=== PATIENT | male | born 1950 | race Caucasian/White ===

== ENCOUNTER 2018-01-15 10:56 | Day surgery (SDC) | payer OTHER ==
[2018-01-14 16:13] VITALS: BMI 26.9
--- NOTE | 2018-01-15 13:17 | HP ---
History & Physical Update - History History: No Change - Physical Physical: No Change - Assessment Assessment: No Change - Plan Plan: No Change
[2018-01-15] MEDS ORDERED: PROPOFOL 20 ML ONE (13:34)
[2018-01-15] MEDS ORDERED: MIDAZOLAM HCL 2 MG/2 ML SINGLE DOSE VIAL ONE (13:34)
[2018-01-15] MEDS ORDERED: LIDOCAINE HCL 1%, 10 MG/ML (20ML VIAL) ONE (13:34)
[2018-01-15] MEDS ORDERED: LIDOCAINE HCL/PF 2% SDV 5ML VIAL ONE ×2 (13:35→13:43)
[2018-01-15] MEDS ORDERED: DEXAMETHASONE SOD PHOSPHATE 4 MG/1 ML VIAL ONE (13:43)
[2018-01-15] MEDS ORDERED: SUCCINYLCHOLINE CHLORIDE 200 MG/10 ML VIAL ONE (13:43)
--- NOTE | 2018-01-15 14:40 | OP ---
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
--- NOTE | 2018-01-15 14:41 | SURG ---
Surgery Accounts Receivable Executive Note Accounts Receivable Executive: Alfa Gonzalez PA-C Date of Service: 01/15/18 Diagnosis: Left upper extremity AV fistula clotted aneurysm Procedure: Left upper extremity AV fistula aneurysm excision and declot I was present for the entirety of the operative procedure. For further detail, please refer to operative report.
[2018-01-15 16:53] VITALS: BP 124/70; PULSE 88; TEMP 98.7
--- NOTE | 2018-01-15 20:45 | OP ---
DATE OF OPERATION: 01/15/2018 SURGEON: Akbar Davidson MD GENERAL MANAGER IN TRAINING: , ABDULAZIZ PROCEDURE: Excision of thrombosed arteriovenous fistula, left upper arm. PREOPERATIVE DIAGNOSIS: Thrombosed arteriovenous fistula, left arm. POSTOPERATIVE DIAGNOSIS: Thrombosed arteriovenous fistula, left arm. ANESTHESIA: General. ANESTHESIOLOGIST: OPERATIVE FINDINGS: An old AV fistula in the left upper arm was thrombosed. There was aneurysmal dilatation of the thrombosed segment, which was causing the patient discomfort. OPERATIVE PROCEDURE: Following routine patient identification with site and side verification, general anesthesia was induced. The left arm was prepped with ChloraPrep. Timeout was performed. An elliptical incision was made around the enlarged fistula in the left upper arm. It was carried in the subcutaneous plane using cautery for hemostasis. The thrombosed aneurysm was then from the subcutaneous tissues with sharp dissection and cautery. It was ligated proximally and distally and it was excised with the attached ellipse of skin. A separate incision was made just above the antecubital crease, where there was another small area of aneurysmal dilatation. The vein was mobilized, ligated proximally and distally, and the intervening portion incised and clot removed. The wounds were then closed with interrupted sutures of 3-0 Vicryl on the subcutaneous tissues and skin remy. A sterile dressing was applied and the patient was taken to the recovery room in stable condition. AKBAR DAVIDSON M.D. ROSALBA/[id number]
--- NOTE | 2018-01-17 12:04 | PATH ---
Surgical Pathology Report Patient Name: BRUNILDA SHI [facility]. Rec. #: [id number] /Age/Gender: 1950 (Age: 68) / M Account: [id number] Location: [facility] SURGICAL Taken: 01/15/2018 Received: 01/16/2018 Reported: 01/17/2018 Physicians: Akbar Washington M.D. Specimen(s) Received CLOTTED AV FISTULA LEFT ARM Clinical History Clotted AV fistula left arm Final Diagnosis ARM, LEFT CLOTTED AV FISTULA, EXCISION: DILATED BLOOD VESSEL WITH INTRALUMINAL ORGANIZED BLOOD CLOT/THROMBUS CONSISTENT WITH AV FISTULA. SKIN WITHOUT SIGNIFICANT PATHOLOGIC FINDINGS. Electronically Signed Rosina Trotter M.D. Gross Description Received in formalin labeled as "clotted AV fistula left arm" is a raphael skin ellipse and underlying bulging lesion consistent with AV fistula. The skin ellipse measures 6 x 2.3 cm. The bulging lesion measures 5.5 x 2.5 x 2 cm and cut section shows a solid, brown-raphael, focally hemorrhagic heterogenous surface with an irregular area of white-raphael central discoloration measuring 1.5 x 1.2 cm in greatest dimension. Roll Up Helper sections are submitted in 2 cassettes. CRISTINA/01/16/2018 jace/01/16/2018
== END 2018-01-15 16:40 | disposition home or self-care (01) ==
LOC: JASU-SURG 10:56
PROVIDERS: ATTEND Surgery
PROC: 0JBF0ZZ Excision of Left Upper Arm Subcutaneous Tissue and Fascia, Open Approach (ICD-10-PCS; principal; 2018-01-15 13:00)
DX: T82.868A Thrombosis due to vascular prosthetic devices, implants and grafts, initial encounter (principal); E11.9 Type 2 diabetes mellitus without complications; I10 Essential (primary) hypertension; Z94.0 Kidney transplant status
CPT/HCPCS: 82962; 88305-TC; 94760

== ENCOUNTER 2018-01-20 10:09 | Inpatient (IN) | payer OTHER ==
[2018-01-20] MEDS ORDERED: ACETAMINOPHEN 1000 MG/100 ML VIAL (NON FORMULARY) IVPB ONE ×2 (10:57→21:53)
[2018-01-20] MEDS ORDERED: SODIUM CHLORIDE 0.9% 1000 ML INFUS.BAG IV ONE ×2 (10:57→13:28)
--- NOTE | 2018-01-20 11:03 | PDOC ---
History of Present Illness - General History Source: Patient Exam Limitations: No Limitations - History of Present Illness Initial Comments: 01/20/18 12:43 The patient is a 68 year old male with a significant PMH of diabetes, hypertension, hyperlipidemia, renal failure(on dialysis for 6 years) who presents to the emergency department with lower left quadrant pain. For several days. The patient reports that he is no longer on dialysis s/p kidney transplant. The patient denies any injury. He denies any fever, chills, nausea, vomit, diarrhea, constipation or urinary symptoms. The patient denies any chest pain, shortness of breath, headache and dizziness. The patient denies any other complaints. <Robert Ortiz - Last Filed: 01/20/18 15:51> <Mike Harman - Last Filed: 01/20/18 16:02> - General Chief Complaint: Pain, Acute Stated Complaint: FEVER (WOUND CARE SENT) Time Seen by Provider: 01/20/18 10:56 Past History <Robert Ortiz - Last Filed: 01/20/18 15:51> - Past Medical History COPD: No Diabetes: Yes HTN: Yes - Surgical History Orthopedic Surgery: Yes (FOOT SX) - Suicide/Smoking/Psychosocial Hx Smoking History: Never smoked Hx Alcohol Use: No Drug/Substance Use Hx: No Substance Use Type: None <Mike Harman - Last Filed: 01/20/18 16:02> - Past Medical History Allergies/Adverse Reactions: Allergies Allergy/AdvReac Type Severity Reaction Status Date / Time No Known Allergies Allergy Verified 01/20/18 10:29 Home Medications: Ambulatory Orders Acetaminophen W/ Codeine #3 [Tylenol # 3 -] 1 tab PO Q4H PRN #15 tablet MDD 6 Albuterol Sulfate [Proair Hfa] 8.5 gm IH DAILY 01/15/18 Insulin Detemir [Levemir Flextouch] 100 unit SQ DAILY 01/15/18 Insulin Lispro [Humalog] 100 unit SQ DAILY 01/15/18 Mycophenolate Mofetil [Cellcept -] 500 mg PO BID 01/15/18 Nifedipine [Procardia Xl] 30 mg PO DAILY 01/15/18 Pantoprazole Sodium [Protonix] 40 mg PO DAILY 01/15/18 Prednisolone [Millipred] 5 mg PO DAILY 01/15/18 Sitagliptin Phosphate [Januvia] 50 mg PO DAILY 01/15/18 Tacrolimus [Astagraf Xl] 0.5 mg PO BID 01/15/18 Tacrolimus [Prograf] 1 mg PO BID 01/15/18 Review of Systems - Review of Systems Able to Perform ROS?: Yes Comments:: 01/20/18 12:44 Constitutional: No recent illness; no fever ENT: No sore throat Cardiovascular: No palpitations; no chest pain Pulmonary: No cough; no trouble breathing Gastrointestinal: (+) lower abdominal pain. No nausea; no vomiting; no diarrhea Genitourinary: No urinary problems; no hematuria Skin: No rash Lymph system: No swollen glands Musculoskeletal: No joint swelling Neurological: No weakness; oo numbness; No Headache; no vertigo; no lightheadedness Psychiatric:No anxiety; no depression ROS: A complete review of 10 out of 10 review of systems is taken and is negative apart from what is previously mentioned below and in the HPI. <Robert Ortiz - Last Filed: 01/20/18 15:51> *Physical Exam - Vital Signs Last Vital Signs Temp Pulse Resp BP Pulse Ox 100.4 F H 116 H 19 131/79 99 01/20/18 10:29 01/20/18 10:29 01/20/18 10:29 01/20/18 10:29 01/20/18 10:29 - Physical Exam Comments: 01/20/18 12:44 Vitals: Triage vital signs reviewed General Appearance: No acute distress, well nourished, well developed Head: Atraumatic Neck: Supple; No nuchal rigidity Chest Wall: Nontender Cardiac: Regular rate and rhythm, no murmurs, no rubs, no gallops Lungs: Clear to auscultation bilateral, good air movement bilaterally Abdomen:(+)LLQ pain. Soft, nondistended, normal bowel sounds, Genitourinary: Extremities: Full range of motion to all extremities, no cyanosis, clubbing, or edema Skin: Warm and dry, no rashes or lesions, no rash, no petechiae Neuro: AOX3; Cranial Nerves 2-12 grossly intact, Strength intact to all extremities, Sensation intact to all extremities, gait normal Psych: Normal mood, normal affect <Robert Ortiz - Last Filed: 01/20/18 15:51> - Vital Signs Last Vital Signs Temp Pulse Resp BP Pulse Ox 100.4 F H 116 H 19 131/79 99 01/20/18 10:29 01/20/18 10:29 01/20/18 10:29 01/20/18 10:29 01/20/18 10:29 <Mike aHrman - Last Filed: 01/20/18 16:02> Heart Score/ECG Review - ECG Impressions Comment:: 01/20/18 16:00 EKG performed at 1342. Demonstrates sinus rhythm [address] elevations no T- wave inversions <Mike Harman - Last Filed: 01/20/18 16:02> ED Treatment Course - LABORATORY CBC & Chemistry Diagram: 01/20/18 12:10 01/20/18 12:10 - ADDITIONAL ORDERS Additional order review: Laboratory Results 01/20/18 12:10 VBG pH 7.36 POC VBG pCO2 48.8 POC VBG pO2 18.5 L* Mixed VBG HCO3 26.5 H 01/20/18 12:10 RBC 5.62 H MCV 82.9 MCHC 31.8 L RDW 14.3 MPV 9.6 Neutrophils % 90.8 H Lymphocytes % 2.4 L Monocytes % 6.0 Eosinophils % 0.2 Basophils % 0.6 <Robert Ortiz - Last Filed: 01/20/18 15:51> - LABORATORY CBC & Chemistry Diagram: 01/20/18 12:10 01/20/18 12:10 - RADIOLOGY Radiology Studies Ordered: Category Date Time Status ABDOMEN & PELVIS CT WITH CONTR [CT] Stat CT Scan 01/20/18 10:57 Ordered CHEST X-RAY PORTABLE* [RAD] Stat Radiology 01/20/18 10:56 Ordered <Mike Harman - Last Filed: 01/20/18 16:02> Medical Decision Making - Medical Decision Making 01/20/18 12:45 The patient is a 68 year old male with a significant PMH of diabetes, hypertension, hyperlipidemia, renal failure(on dialysis for 6 years) who presents to the emergency department with lower left quadrant pain For several days. the patient will get labs done, antibiotics, and a CT. Case discussed with Dr. Miranda at 2:55pm Case discussed with Dr. Rivas at 3:12pm <Robert Ortiz - Last Filed: 01/20/18 15:51> - Medical Decision Making 68 years old renal compromise secondary to renal transplant 6 years ago and insulin-dependent diabetes presents with soft tissue cellulitis to left anterior abdominal wall Given fever tachycardia sepsis protocol initiated. Patient currently broad- spectrum antibiotic. CAT scan abdomen and pelvis performed no contrast given secondary to renal transplant. CT results as dictated. Infectious disease consult. Surgery consulted, although no evidence for acute intervention at this time We will admit to medicine for further management. <Mike Harman - Last Filed: 01/20/18 16:02> *DC/Admit/Observation/Transfer - Attestations Scribe Attestion: 01/20/18 12:45 Documentation prepared by Robert Ortiz, acting as spanish medical interpreter for Mike Harman MD. <Robert Ortiz - Last Filed: 01/20/18 15:51> - Discharge Dispostion Decision to Admit order: Yes <Mike Harman - Last Filed: 01/20/18 16:02> Diagnosis at time of Disposition: Abdominal wall abscess - Referrals Referrals: Chirag Shah MD [Primary Care Provider] -
[2018-01-20] MEDS ORDERED: PIPERACILLIN/TAZOB 3.375 GM 3.375 GM in DEXTROSE 5%-WATER - 50 ML IVPB ONE (12:03)
[2018-01-20 12:26] LABS: BASO % 0.6 % (0-2.0); HEMATOCRIT 46.6 % (35.4-49); HEMOGLOBIN 14.8 GM/dL (11.7-16.9); MCH 26.4 pg (25.7-33.7); MCHC 31.8 g/dl (32.0-35.9); MEAN CELL VOLUME 82.9 fl (80-96); MEAN PLT VOLUME 9.6 fl (7.5-11.1); PLATELET COUNT 333 K/MM3 (134-434); RBC 5.62 M/mm3 (4.00-5.60); RDW 14.3 % (11.9-15.9)
[2018-01-20] MEDS ORDERED: PIPERACILLIN/TAZOB 3.375 GM 3.375 GM/50 ML BAG IVPB ONE ×2 (12:26→21:39)
[2018-01-20] MEDS ORDERED: ACETAMINOPHEN INJECTION 100 ML IVPB ONE ×2 (12:26→21:57)
[2018-01-20 12:29] LABS: VENOUS PC02 48.8 mmHg (38-52); VENOUS PH 7.36 (7.32-7.42); VENOUS PO2 18.5 mmHg (28-48)
[2018-01-20 12:46] LABS: PROTHROMBIN TIME (PATIENT) 11.3 SEC (9.7-13.0)
[2018-01-20 12:49] LABS: ACTIVATED PTT 23.4 SECONDS (25.2-36.5)
[2018-01-20 12:53] LABS: URINE APPEARANCE CLEAR; URINE BILIRUBIN NEGATIVE (<2.0 mg/dL); URINE COLOR DKYELLOW; URINE GLUCOSE (UA) 2+ (NEGATIVE); URINE KETONE NEGATIVE (NEGATIVE); URINE LEUK ESTERASE NEGATIVE (NEGATIVE); URINE NITRITE NEGATIVE (NEGATIVE)
[2018-01-20 12:57] LABS: ALBUMIN 3.6 g/dl (3.4-5.0); ALK PHOS 187 U/L (45-117); ANION GAP 9 (8-16); BILIRUBIN,TOTAL 1.1 mg/dL (0.2-1.0); BLOOD UREA NITROGEN 29 mg/dL (7-18); CALCIUM 10.3 mg/dL (8.5-10.1); CHLORIDE 99 mmol/L (98-107); CO2 27 mmol/L (21-32); CREATININE 1.8 mg/dL (0.7-1.3); GLUCOSE,RANDOM 91 mg/dL (74-106); POTASSIUM 4.5 mmol/L (3.5-5.1); SGOT/AST 11 U/L (15-37); SGPT/ALT 26 U/L (12-78); SODIUM 135 mmol/L (136-145)
[2018-01-20 13:04] LABS: URINE PROTEIN 2+ (NEGATIVE)
[2018-01-20 13:06] LABS: EPI CELLS RARE /HPF (FEW); URINE HYALINE CAST 4 /lpf; URINE MUCUS RARE
[2018-01-20] MEDS ORDERED: VANCOMYCIN 1,000 MG in DEXTROSE 5%-WATER - 250 ML IVPB ONE (15:11)
[2018-01-20] MEDS ORDERED: VANCOMYCIN 500 MG VIAL (RESTRICTED TO ID ONLY) ONE (15:25)
--- NOTE | 2018-01-20 16:14 | CONSULT ---
Consult Consult Specialty:: general surgery Referred by:: Jc Miranda MD Reason for Consultation:: LLQ/ groin skin abscess - History of Present Illness Chief Complaint: LLQ/ inguinal abscess History of Present Illness: 68 yo male PMH DM type 2, HTN, HLD, renal failure (on dialysis for 6 years) who presents to the emergency department with lower left quadrant pain. For several days. In an area where he shaves, may have been an ingrown hair. The patient reports that he is no longer on dialysis s/p kidney transplant. The patient denies any injury. He denies any fever, chills, nausea, vomit, diarrhea, constipation or urinary symptoms. The patient denies any chest pain, shortness of breath, headache and dizziness. The patient denies any other complaints. We were asked to assess. - History Source History Provided By: Patient, Medical Record Limitations to Obtaining History: No Limitations - Past Medical History Cardio/Vascular: Yes: HTN, Hyperlipdemia Endocrine: Yes: Diabetes Mellitus - Alcohol/Substance Use Hx Alcohol Use: No - Smoking History Smoking history: Never smoked - Social History Place of : Other ([facility]) History of Recent Travel: Yes Home Medications - Allergies Allergies/Adverse Reactions: Allergies Allergy/AdvReac Type Severity Reaction Status Date / Time No Known Allergies Allergy Verified 01/20/18 10:29 - Home Medications Home Medications: Ambulatory Orders Acetaminophen W/ Codeine #3 [Tylenol # 3 -] 1 tab PO Q4H PRN #15 tablet MDD 6 Albuterol Sulfate [Proair Hfa] 8.5 gm IH DAILY 01/15/18 Insulin Detemir [Levemir Flextouch] 100 unit SQ DAILY 01/15/18 Insulin Lispro [Humalog] 100 unit SQ DAILY 01/15/18 Mycophenolate Mofetil [Cellcept -] 500 mg PO BID 01/15/18 Nifedipine [Procardia Xl] 30 mg PO DAILY 01/15/18 Pantoprazole Sodium [Protonix] 40 mg PO DAILY 01/15/18 Prednisolone [Millipred] 5 mg PO DAILY 01/15/18 Sitagliptin Phosphate [Januvia] 50 mg PO DAILY 01/15/18 Tacrolimus [Astagraf Xl] 0.5 mg PO BID 01/15/18 Tacrolimus [Prograf] 1 mg PO BID 01/15/18 Review of Systems - Review of Systems Constitutional: denies: Chills, Fever Eyes: denies: Blurred Vision, Recent Change in Vision HENT: denies: Difficult Swallowing, Throat Pain Neck: denies: Pain on Movement, Tenderness Cardiovascular: denies: Chest Pain, Palpitations Respiratory: denies: Cough, SOB Gastrointestinal: denies: Abdominal Pain, Constipation, Diarrhea Genitourinary: denies: Discharge, Dysuria Breasts: reports: No Symptoms Reported. denies: Pain Musculoskeletal: denies: Muscle Pain, Muscle Weakness Integumentary: denies: Erythema, Lesions, Rash Neurological: denies: Seizure, Syncope Endocrine: denies: Unexplained Weight Gain, Unexplained Weight Loss Hematology/Lymphatic: denies: Easily Bruised, Excessive Bleeding Psychiatric: denies: Anxiety, Depression Physical Exam Vital Signs: Vital Signs Temperature 99.8 F H 01/20/18 15:23 Pulse Rate 103 H 01/20/18 15:23 Respiratory Rate 20 01/20/18 15:23 Blood Pressure 160/80 01/20/18 15:23 O2 Sat by Pulse Oximetry (%) 97 01/20/18 15:23 Vital Signs Period Temp Pulse Resp BP Sys/Rouse Pulse Ox Last 24 Hr 99.8 F-100.6 F 103-116 19-20 131-160/79-80 97-99 Constitutional: Yes: Well Nourished, No Distress, Calm Eyes: Yes: Conjunctiva Clear, EOM Intact HENT: Yes: Atraumatic, Normocephalic Neck: Yes: Supple, Trachea Midline. No: Tenderness Cardiovascular: Yes: Regular Rate and Rhythm, S1, S2 Respiratory: Yes: Regular, CTA Bilaterally Gastrointestinal: Yes: Normal Bowel Sounds, Soft ...Rectal Exam: Yes: Deferred Renal/: No: CVA Tenderness - Left, CVA Tenderness - Right Musculoskeletal: No: Muscle Pain, Muscle Weakness Extremities: No: Cool, Cyanosis Edema: Yes Integumentary: No: Erythema, Jaundice, Rash Wound/Incision: Yes: Reddened (2cm erythma not well defined/ circumscribed, + fluctuance and induration at punctum, 1cm cruciacte incison made) Neurological: Yes: Alert, Oriented Psychiatric: Yes: Alert, Oriented Labs: CBC, BMP 01/20/18 12:10 01/20/18 12:10 Imaging - Results Cat Scan: Report Reviewed, Image Reviewed (1cm^3 abscess) Problem List - Problems (1) Abdominal wall abscess Assessment/Plan: 68yo male MMP with a LLQ abdominal wall abscess Bedside I&D of abscess IV antibiotics ID evaluation adequate analgesia Discussed with patient risks, benefits and alternatives of Incision and Drainage of abdominal wall abscess, including but not limited to bleeding, infection, injury to adjacent structures, recurrence abscess, need for further procedures, ; alternatives include antibiotics, delayed or no surgery - risks of this include failure of nonoperative therapy, sepsis, recurrence, . Patient desires to proceed with operation - will take to OR for above. Informed consent signed for same. will follow This patient is critically ill. Time spent reviewing chart, examining patient, talking with providers and/or family and documentation is XX minutes Code(s): L02.211 - CUTANEOUS ABSCESS OF ABDOMINAL WALL (2) HTN (hypertension) Code(s): I10 - ESSENTIAL (PRIMARY) HYPERTENSION Qualifiers: Hypertension type: essential hypertension Qualified Code(s): I10 - Essential (primary) hypertension (3) Diabetes Code(s): E11.9 - TYPE 2 DIABETES MELLITUS WITHOUT COMPLICATIONS Qualifiers: Diabetes mellitus type: type 2 (4) Transplanted kidney Code(s): Z94.0 - KIDNEY TRANSPLANT STATUS (5) HLD (hyperlipidemia) Code(s): E78.5 - HYPERLIPIDEMIA, UNSPECIFIED Qualifiers: Hyperlipidemia type: unspecified Qualified Code(s): E78.5 - Hyperlipidemia , unspecified
--- NOTE | 2018-01-20 16:32 | PROC ---
Incision and Drainage Indication/Location: left lower quardant abscess Risks and Benefits Explained: Yes Consent on Chart: Yes Betadine cleansed: Yes Anesthesia: 1% Lidocaine Blade Size: 10 Drainage: purulnent material ~1ml, irrigated with hydrogen peroxide solution, and culture sent Irrigated with Normal Saline: Yes Iodinated Packin/2 in Sterile Dressing Applied: Yes - Remarks Remarks: informed consent after explaining RBA. Sterile prep and drape of LLQ. 1cm Cruciate incision of LLQ abscess.
--- NOTE | 2018-01-20 16:53 | HP ---
Admitting History and Physical - Primary Care Physician PCP: Sree Miranda - Admission History of Present Illness: 68 yo male PMH DM type 2, HTN, HLD, renal failure (on dialysis for 6 years) who presents to the emergency department with lower left quadrant pain. For several days. In an area where he shaves, may have been an ingrown hair. The patient reports that he is no longer on dialysis s/p kidney transplant. The patient denies any injury. He denies any fever, chills, nausea, vomit, diarrhea, constipation or urinary symptoms. The patient denies any chest pain, shortness of breath, headache and dizziness. The patient denies any other complaints. We were asked to assess. History Provided By: Patient, Medical Record - Past Medical History Cardiovascular: Yes: HTN, Hyperlipdemia Renal/: Yes: Renal Failure Endocrine: Yes: Diabetes Mellitus - Smoking History Smoking history: Never smoked - Alcohol/Substance Use Hx Alcohol Use: No - Social History History of Recent Travel: Yes Home Medications - Allergies Allergies/Adverse Reactions: Allergies Allergy/AdvReac Type Severity Reaction Status Date / Time No Known Allergies Allergy Verified 01/20/18 10:29 - Home Medications Home Medications: Ambulatory Orders Acetaminophen W/ Codeine #3 [Tylenol # 3 -] 1 tab PO Q4H PRN #15 tablet MDD 6 Albuterol Sulfate [Proair Hfa] 8.5 gm IH DAILY 01/15/18 Insulin Detemir [Levemir Flextouch] 100 unit SQ DAILY 01/15/18 Insulin Lispro [Humalog] 100 unit SQ DAILY 01/15/18 Mycophenolate Mofetil [Cellcept -] 500 mg PO BID 01/15/18 Nifedipine [Procardia Xl] 30 mg PO DAILY 01/15/18 Pantoprazole Sodium [Protonix] 40 mg PO DAILY 01/15/18 Prednisolone [Millipred] 5 mg PO DAILY 01/15/18 Sitagliptin Phosphate [Januvia] 50 mg PO DAILY 01/15/18 Tacrolimus [Astagraf Xl] 0.5 mg PO BID 01/15/18 Tacrolimus [Prograf] 1 mg PO BID 01/15/18 Physical Examination Vital Signs: Vital Signs Temperature 99.8 F H 01/20/18 15:23 Pulse Rate 103 H 01/20/18 15:23 Respiratory Rate 20 01/20/18 15:23 Blood Pressure 160/80 01/20/18 15:23 O2 Sat by Pulse Oximetry (%) 97 01/20/18 15:23 Constitutional: Yes: No Distress HENT: Yes: Atraumatic Neck: Yes: Supple Cardiovascular: Yes: Regular Rate and Rhythm Respiratory: Yes: CTA Bilaterally Gastrointestinal: Yes: Normal Bowel Sounds, Other (abdominal wall cellulitis) Extremities: Yes: WNL Edema: No Neurological: Yes: Alert, Oriented Labs: CBC, BMP 01/20/18 12:10 01/20/18 12:10 Imaging - Results X-ray: Report Reviewed Cat Scan: Report Reviewed Problem List - Problems (1) Abdominal wall abscess Assessment/Plan: iv abx id and surgery consult Code(s): L02.211 - CUTANEOUS ABSCESS OF ABDOMINAL WALL (2) CKD (chronic kidney disease) Code(s): N18.9 - CHRONIC KIDNEY DISEASE, UNSPECIFIED (3) Diabetes Assessment/Plan: on meds bgms Code(s): E11.9 - TYPE 2 DIABETES MELLITUS WITHOUT COMPLICATIONS Qualifiers: Diabetes mellitus type: type 2 (4) HLD (hyperlipidemia) Code(s): E78.5 - HYPERLIPIDEMIA, UNSPECIFIED Qualifiers: Hyperlipidemia type: unspecified Qualified Code(s): E78.5 - Hyperlipidemia , unspecified (5) HTN (hypertension) Assessment/Plan: on meds stable Code(s): I10 - ESSENTIAL (PRIMARY) HYPERTENSION Qualifiers: Hypertension type: essential hypertension Qualified Code(s): I10 - Essential (primary) hypertension (6) Transplanted kidney Code(s): Z94.0 - KIDNEY TRANSPLANT STATUS Assessment/Plan Laboratory Tests 01/20/18 01/20/18 01/20/18 12:10 12:10 12:10 WBC 19.0 H RBC 5.62 H Hgb 14.8 Hct 46.6 MCV 82.9 MCH 26.4 MCHC 31.8 L RDW 14.3 Plt Count 333 MPV 9.6 Absolute Neuts (auto) 17.3 Neutrophils % 89.0 H Lymphocytes % 3.0 L Monocytes % 6.0 Eosinophils % 2.0 Basophils % 0.6 Nucleated RBC % 0 PT with INR 11.30 INR 1.00 PTT (Actin FS) 23.4 L VBG pH 7.36 POC VBG pCO2 48.8 POC VBG pO2 18.5 L* Mixed VBG HCO3 26.5 H Sodium Potassium Chloride Carbon Dioxide Anion Gap BUN Creatinine Creat Clearance w eGFR Random Glucose Lactic Acid Calcium Total Bilirubin AST ALT Alkaline Phosphatase Troponin I Total Protein Albumin Urine Color Urine Appearance Urine pH Ur Specific [place] Urine Protein Urine Glucose (UA) Urine Ketones Urine Blood Urine Nitrite Urine Bilirubin Urine Urobilinogen Ur Leukocyte Esterase Urine WBC (Auto) Urine RBC (Auto) Ur Epithelial Cells Hyaline Casts Urine Mucus 01/20/18 01/20/18 01/20/18 12:10 12:10 12:10 WBC RBC Hgb Hct MCV MCH MCHC RDW Plt Count MPV Absolute Neuts (auto) Neutrophils % Lymphocytes % Monocytes % Eosinophils % Basophils % Nucleated RBC % PT with INR INR PTT (Actin FS) VBG pH POC VBG pCO2 POC VBG pO2 Mixed VBG HCO3 Sodium 135 L Potassium 4.5 Chloride 99 Carbon Dioxide 27 Anion Gap 9 BUN 29 H Creatinine 1.8 H Creat Clearance w eGFR 37.60 Random Glucose 91 Lactic Acid 2.4 H* Calcium 10.3 H Total Bilirubin 1.1 H AST 11 L ALT 26 Alkaline Phosphatase 187 H Troponin I < 0.02 Total Protein 8.0 Albumin 3.6 Urine Color Urine Appearance Urine pH Ur Specific [place] Urine Protein Urine Glucose (UA) Urine Ketones Urine Blood Urine Nitrite Urine Bilirubin Urine Urobilinogen Ur Leukocyte Esterase Urine WBC (Auto) Urine RBC (Auto) Ur Epithelial Cells Hyaline Casts Urine Mucus 01/20/18 12:45 WBC RBC Hgb Hct MCV MCH MCHC RDW Plt Count MPV Absolute Neuts (auto) Neutrophils % Lymphocytes % Monocytes % Eosinophils % Basophils % Nucleated RBC % PT with INR INR PTT (Actin FS) VBG pH POC VBG pCO2 POC VBG pO2 Mixed VBG HCO3 Sodium Potassium Chloride Carbon Dioxide Anion Gap BUN Creatinine Creat Clearance w eGFR Random Glucose Lactic Acid Calcium Total Bilirubin AST ALT Alkaline Phosphatase Troponin I Total Protein Albumin Urine Color Dkyellow Urine Appearance Clear Urine pH 5.0 Ur Specific [place] 1.031 Urine Protein 2+ H Urine Glucose (UA) 2+ H Urine Ketones Negative Urine Blood Negative Urine Nitrite Negative Urine Bilirubin Negative Urine Urobilinogen 2.0 Ur Leukocyte Esterase Negative Urine WBC (Auto) 2 Urine RBC (Auto) None Ur Epithelial Cells Rare Hyaline Casts 4 Urine Mucus Rare Active Medications Generic Name Dose Route Start Last Admin Trade Name Freq PRN Reason Stop Dose Admin Acetaminophen 650 mg 01/20/18 22:00 01/21/18 10:10 Tylenol - PO 650 mg Q6H PRN Administration FEVER Albuterol Sulfate 2 puff 01/21/18 10:00 Ventolin Hfa Inhaler - IH Q4H PRN SHORTNESS OF BREATH Clindamycin Phosphate 300 mg in 50 mls @ 100 mls/hr 01/21/18 19:15 01/22/18 11:33 Cleocin 300 Mg Premix Ivpb IVPB 100 mls/hr Q8H-IV ROMEO Administration Protocol Insulin Aspart 1 vial 01/20/18 22:00 01/22/18 11:37 Novolog Vial Sliding Scale - SQ 10 units ACHS ROMEO Administration Protocol Insulin Detemir 40 units 01/20/18 22:00 01/21/18 22:04 Levemir Vial SQ 40 units HS ROMEO Administration Mycophenolate Mofetil 1,000 mg 01/21/18 22:00 01/22/18 09:56 Cellcept - PO 1,000 mg BID ROMEO Administration Nifedipine 30 mg 01/21/18 10:00 01/22/18 09:56 Procardia Xl - PO 30 mg DAILY ROMEO Administration Oxycodone HCl 10 mg 01/20/18 22:00 Roxicodone - PO Q6H PRN PAIN LEVEL 4 - 6 Pantoprazole Sodium 40 mg 01/21/18 10:00 01/22/18 09:56 Protonix - PO 40 mg DAILY ROMEO Administration Prednisone 5 mg 01/21/18 10:00 01/22/18 09:56 Deltasone - PO 5 mg DAILY ROMEO Administration Sitagliptin Phosphate 50 mg 01/21/18 07:00 01/22/18 06:50 Januvia - PO Not Given ACBK ROMEO Tacrolimus 2 mg 01/21/18 22:00 01/22/18 09:56 Prograf PO 2 mg BID ROMEO Administration Tacrolimus 0.5 mg 01/21/18 22:00 01/22/18 10:00 Prograf PO 0.5 mg BID ROMEO Administration
[2018-01-20] MEDS ORDERED: LIDOCAINE HCL 1%, 10 MG/ML (20ML VIAL) ONE (17:07)
[2018-01-20 17:44] LABS: INR 1.01 (0.82-1.09); PROTHROMBIN TIME (PATIENT) 11.4 SEC (9.7-13.0)
[2018-01-20 17:47] LABS: ACTIVATED PTT 26.6 SECONDS (25.2-36.5)
[2018-01-20] MEDS: PIPERACILLIN/TAZOB 3.375 GM 3.375 GM in DEXTROSE 5%-WATER - 50 ML IVPB SCH (21:35)
[2018-01-20] MEDS ORDERED: oxyCODONE HCL 5 MG TABLET PO PRN (22:00)
[2018-01-20] MEDS ORDERED: ACETAMINOPHEN 325 MG TABLET (FP) PO PRN (22:00)
[2018-01-20] MEDS: INSULIN SLIDING SCALE (NOVOLOG) 1 VIAL SQ SCH (22:28)
[2018-01-20] MEDS ORDERED: INSULIN (LEVEMIR) 100 UNITS/ML UNITS SQ ONE (22:29)
[2018-01-20] MEDS: INSULIN (LEVEMIR) 100 UNITS/ML UNITS SQ SCH (22:33)
[2018-01-20] MEDS: MYCOPHENOLATE MOFETIL 500 MG TABLET PO SCH (22:33)
[2018-01-20] MEDS: TACROLIMUS 0.5 MG CAPSULE PO SCH (22:33)
[2018-01-21] MEDS: PIPERACILLIN/TAZOB 3.375 GM 3.375 GM in DEXTROSE 5%-WATER - 50 ML IVPB SCH ×3 (02:12→18:12)
[2018-01-21] MEDS ORDERED: PIPERACILLIN/TAZOB 4.5 GM 4.5 GM/100 ML BAG IVPB ONE (02:39)
[2018-01-21 06:23] LABS: BASO % 0.5 % (0-2.0); EOS % 0.1 % (0-4.5); HEMATOCRIT 39.9 % (35.4-49); HEMOGLOBIN 13.1 GM/dL (11.7-16.9); LYMPH % 4.1 % (8-40); MCHC 32.8 g/dl (32.0-35.9); MEAN CELL VOLUME 82.4 fl (80-96); MEAN PLT VOLUME 9.5 fl (7.5-11.1); MONO % 7.1 % (3.8-10.2); NEUT % 88.2 % (42.8-82.8); PLATELET COUNT 264 K/MM3 (134-434); RBC 4.84 M/mm3 (4.00-5.60); RDW 14.2 % (11.9-15.9); WHITE BLOOD COUNT 21.3 K/mm3 (4.0-10.0)
[2018-01-21] MEDS: INSULIN SLIDING SCALE (NOVOLOG) 1 VIAL SQ SCH ×4 (07:09→22:05)
[2018-01-21] MEDS ORDERED: ALBUTEROL SO4 18 GM HFA INHALER IH PRN (10:00)
[2018-01-21] MEDS ORDERED: ACETAMINOPHEN 325 MG TABLET (FP) ONE (10:08)
[2018-01-21] MEDS ORDERED: oxyCODONE HCL 5 MG TABLET ONE (10:10)
[2018-01-21] MEDS: TACROLIMUS 0.5 MG CAPSULE PO SCH ×2 (10:11→22:05)
[2018-01-21] MEDS: PANTOPRAZOLE 40 MG TABLET (FP) PO SCH (10:11)
[2018-01-21] MEDS: predniSONE 5 MG TABLET (UD) PO SCH (10:11)
[2018-01-21 10:12] LABS: ANISOCYTOSIS 1+; MACROCYTOSIS 1+; PLATELET ESTIMATE NORMAL
[2018-01-21] MEDS: MYCOPHENOLATE MOFETIL 500 MG TABLET PO SCH ×2 (10:12→22:04)
[2018-01-21] MEDS: NIFEdipine E.R. 30 MG TABLET (FP) PO SCH (10:12)
--- NOTE | 2018-01-21 13:18 | CONSULT ---
Consultation: REQUESTING PROVIDER: Dr. Miranda CONSULT REQUEST: We have been asked to medically evaluate this patient for creatinine 1.8. HISTORY OF PRESENT ILLNESS: This is a 68 year old male with a past medical history of DM, HTN, CKD was on HD for six years; is s/p left renal transplant 5yread ago at [facility], who presents septic with left lower quadrant abdominal/pelvic abscess, s/p I/D yesterday. We were called to evaluate for creatinine of 1.8. Baseline unknown. Follow every three months at [facility] with renal transplant center. Has not had any changes to his medications. Currently on cellcept, tacrolimus, prednisone daily. As per patient no complications from renal transplant. Primary: Dr. Martin [facility]: CKD, HTN, DM, macular degeneration PSX:left renal transplant 5 yrs ago; bilateral retina sx NKDA Home Medications Medication Instructions Recorded Acetaminophen W/ Codeine #3 1 tab PO Q4H PRN #15 tablet MDD 6 01/15/18 [Tylenol # 3 -] Albuterol Sulfate [Proair Hfa] 8.5 gm IH DAILY 01/15/18 Insulin Detemir [Levemir Flextouch] 100 unit SQ DAILY 01/15/18 Insulin Lispro [Humalog] 100 unit SQ DAILY 01/15/18 Mycophenolate Mofetil [Cellcept -] 500 mg PO BID 01/15/18 Nifedipine [Procardia Xl] 30 mg PO DAILY 01/15/18 Pantoprazole Sodium [Protonix] 40 mg PO DAILY 01/15/18 Prednisolone [Millipred] 5 mg PO DAILY 01/15/18 Sitagliptin Phosphate [Januvia] 50 mg PO DAILY 01/15/18 Tacrolimus [Astagraf Xl] 0.5 mg PO BID 01/15/18 Tacrolimus [Prograf] 1 mg PO BID 01/15/18 REVIEW OF SYSTEMS: CONSTITUTIONAL: Absent: fever, chills, diaphoresis, generalized weakness, malaise, loss of appetite, weight change HEENT: Absent: rhinorrhea, nasal congestion, throat pain, throat swelling, difficulty swallowing, mouth swelling, ear pain, eye pain, visual changes CARDIOVASCULAR: Absent: chest pain, syncope, palpitations, irregular heart rate, lightheadedness , peripheral edema RESPIRATORY: Absent: cough, shortness of breath, dyspnea with exertion, orthopnea, wheezing, stridor, hemoptysis GASTROINTESTINAL: Positive: abdominal tenderness Absent: abdominal pain, abdominal distension, nausea, vomiting, diarrhea, constipation, melena, hematochezia GENITOURINARY: Absent: dysuria, frequency, urgency, hesitancy, hematuria, flank pain, genital pain MUSCULOSKELETAL: Absent: myalgia, arthralgia, joint swelling, back pain, neck pain SKIN: Absent: rash, itching, pallor HEMATOLOGIC/IMMUNOLOGIC: Absent: easy bleeding, easy bruising, lymphadenopathy, frequent infections ENDOCRINE: Absent: unexplained weight gain, unexplained weight loss, heat intolerance, cold intolerance NEUROLOGIC: Absent: headache, focal weakness or paresthesias, dizziness, unsteady gait, seizure, mental status changes, bladder or bowel incontinence PSYCHIATRIC: Absent: anxiety, depression, suicidal or homicidal ideation, hallucinations. PHYSICAL EXAMINATION Vital Signs - 24 hr 01/20/18 01/20/18 01/20/18 13:45 15:23 21:50 Temperature 100.6 F H 99.8 F H 102.6 F H Pulse Rate Pulse Rate [ 103 H 109 H Apical] Respiratory 20 20 Rate Blood Pressure Blood Pressure 160/80 155/75 [Right Arm] O2 Sat by Pulse 97 92 L Oximetry (%) 01/21/18 01/21/18 01/21/18 01:38 06:19 07:04 Temperature 99.2 F 98.2 F 100.7 F H Pulse Rate Pulse Rate [ 103 H 102 H 104 H Apical] Respiratory 17 15 16 Rate Blood Pressure Blood Pressure 107/63 126/63 126/75 [Right Arm] O2 Sat by Pulse 97 97 97 Oximetry (%) 01/21/18 01/21/18 09:30 10:06 Temperature 101 F H 99 F Pulse Rate 101 H 106 H Pulse Rate [ Apical] Respiratory 18 20 Rate Blood Pressure 135/69 102/50 Blood Pressure [Right Arm] O2 Sat by Pulse 97 Oximetry (%) GENERAL: Awake, alert, and fully oriented, in no acute distress. HEAD: Normal with no signs of trauma. LUNGS: Breath sounds equal, clear to auscultation bilaterally. No wheezes, and no crackles. No accessory muscle use. HEART: Regular rate and rhythm, normal S1 and S2 without murmur, rub or gallop. ABDOMEN: Soft, nontender, right LQ wound dressing with serosanginous leaking fron bandage; no puss, swelling or erythema UPPER EXTREMITIES: 2+ pulses, warm, well-perfused. No cyanosis. No clubbing. Cap refill <2 seconds. No peripheral edema. left UE av fistula; LOWER EXTREMITIES: 2+ pulses, warm, well-perfused. No calf tenderness. No peripheral edema. NEUROLOGICAL: Cranial nerves II-XII intact. Normal speech. SKIN: Warm, dry, normal turgor, no rashes or lesions noted. Laboratory Results - last 24 hr 01/20/18 01/20/18 01/20/18 12:10 12:52 15:57 WBC RBC Hgb Hct MCV MCH MCHC RDW Plt Count MPV Absolute Neuts (auto) Neutrophils % 89.0 H Neutrophils % (Manual) 89.0 H Band Neutrophils % 0.0 Lymphocytes % 3.0 L Lymphocytes % (Manual) 3.0 L Monocytes % Monocytes % (Manual) 6 Eosinophils % 2.0 Eosinophils % (Manual) 2.0 Basophils % Basophils % (Manual) 0.0 Myelocytes % (Man) Promyelocytes % (Man) Blast Cells % (Manual) Nucleated RBC % Metamyelocytes Hypochromia Platelet Estimate Polychromasia Poikilocytosis Anisocytosis Microcytosis Macrocytosis PT with INR INR PTT (Actin FS) POC Glucometer Lactic Acid 2.0 Blood Type O NEGATIVE Antibody Screen Negative 01/20/18 01/20/18 01/21/18 15:57 22:18 06:00 WBC 21.3 H RBC 4.84 Hgb 13.1 D Hct 39.9 MCV 82.4 MCH 27.0 MCHC 32.8 RDW 14.2 Plt Count 264 D MPV 9.5 Absolute Neuts (auto) 18.8 Neutrophils % 88.2 H Neutrophils % (Manual) 87.4 H Band Neutrophils % 2.1 Lymphocytes % 4.1 L D Lymphocytes % (Manual) 8.4 D Monocytes % 7.1 Monocytes % (Manual) 2 L Eosinophils % 0.1 D Eosinophils % (Manual) 0.0 D Basophils % 0.5 Basophils % (Manual) 0.0 Myelocytes % (Man) 0 Promyelocytes % (Man) 0 Blast Cells % (Manual) 0 Nucleated RBC % 0 Metamyelocytes 0 Hypochromia 0 Platelet Estimate Normal Polychromasia 0 Poikilocytosis 0 Anisocytosis 1+ Microcytosis 1+ Macrocytosis 1+ PT with INR 11.40 INR 1.01 PTT (Actin FS) 26.6 POC Glucometer [phone] Lactic Acid Blood Type Antibody Screen 01/21/18 07:04 WBC RBC Hgb Hct MCV MCH MCHC RDW Plt Count MPV Absolute Neuts (auto) Neutrophils % Neutrophils % (Manual) Band Neutrophils % Lymphocytes % Lymphocytes % (Manual) Monocytes % Monocytes % (Manual) Eosinophils % Eosinophils % (Manual) Basophils % Basophils % (Manual) Myelocytes % (Man) Promyelocytes % (Man) Blast Cells % (Manual) Nucleated RBC % Metamyelocytes Hypochromia Platelet Estimate Polychromasia Poikilocytosis Anisocytosis Microcytosis Macrocytosis PT with INR INR PTT (Actin FS) POC Glucometer [phone] Lactic Acid Blood Type Antibody Screen Active Medications Generic Name Dose Route Start Last Admin Trade Name Freq PRN Reason Stop Dose Admin Acetaminophen 650 mg 01/20/18 22:00 01/21/18 10:10 Tylenol - PO 650 mg Q6H PRN Administration FEVER Albuterol Sulfate 2 puff 01/21/18 10:00 Ventolin Hfa Inhaler - IH Q4H PRN SHORTNESS OF BREATH Piperacillin Sod/Tazobactam 50 mls @ 100 mls/hr 01/20/18 19:30 01/21/18 10:11 Sod 3.375 gm/ Dextrose IVPB 100 mls/hr Q8H-IV ROMEO Administration Protocol Insulin Aspart 1 vial 01/20/18 22:00 01/21/18 07:09 Novolog Vial Sliding Scale - SQ Not Given ACHS ROMEO Protocol Insulin Detemir 40 units 01/20/18 22:00 01/20/18 22:33 Levemir Vial SQ 40 units HS ROMEO Administration Mycophenolate Mofetil 500 mg 01/20/18 22:00 01/21/18 10:12 Cellcept - PO 500 mg BID ROMEO Administration Nifedipine 30 mg 01/21/18 10:00 01/21/18 10:12 Procardia Xl - PO 30 mg DAILY ROMEO Administration Oxycodone HCl 10 mg 01/20/18 22:00 Roxicodone - PO Q6H PRN PAIN LEVEL 4 - 6 Pantoprazole Sodium 40 mg 01/21/18 10:00 01/21/18 10:11 Protonix - PO 40 mg DAILY ROMOE Administration Prednisone 5 mg 01/21/18 10:00 01/21/18 10:11 Deltasone - PO 5 mg DAILY ROMEO Administration Sitagliptin Phosphate 50 mg 01/21/18 07:00 Januvia - PO ACBK ROMEO Tacrolimus 0.5 mg 01/20/18 22:00 01/21/18 10:11 Prograf PO 0.5 mg BID ROMEO Administration ASSESSMENT/PLAN: This is a 68 year old English speaking male with HTN, DM, CKD s/p renal transplant 5yrs ago who presented septic from abdominal abscess. Creatinine on presentation was 1.8. #CKD s/p renal transplant; presenting creatinine 1.8 -get baseline cr -repeat BMP today monitor Cr, UA , urine creatinine, urine electrolytes -f/u non contrast MRI; there was question on initial CT of possible left rectus muscle resection vs hematoma vs infection -tacrolimus level -avoid nephrotoxic agents -renal dose medications #sepsis secondary to abdominal abscess: -POD#1 I& D -cont IV antibitoics; f/u culture -surgery /ID following Dispo: We will continue to follow the patient. Thank you for this consultative opportunity. Problem List - Problems (1) CKD (chronic kidney disease) Code(s): N18.9 - CHRONIC KIDNEY DISEASE, UNSPECIFIED (2) Abdominal wall abscess Code(s): L02.211 - CUTANEOUS ABSCESS OF ABDOMINAL WALL (3) Diabetes Code(s): E11.9 - TYPE 2 DIABETES MELLITUS WITHOUT COMPLICATIONS Qualifiers: Diabetes mellitus type: type 2 (4) HLD (hyperlipidemia) Code(s): E78.5 - HYPERLIPIDEMIA, UNSPECIFIED Qualifiers: Hyperlipidemia type: unspecified Qualified Code(s): E78.5 - Hyperlipidemia , unspecified (5) HTN (hypertension) Code(s): I10 - ESSENTIAL (PRIMARY) HYPERTENSION Qualifiers: Hypertension type: essential hypertension Qualified Code(s): I10 - Essential (primary) hypertension (6) Transplanted kidney Code(s): Z94.0 - KIDNEY TRANSPLANT STATUS Visit type - Emergency Visit Emergency Visit: No - New Patient This patient is new to me today: Yes Date on this admission: 01/21/18 - Critical Care Critical Care patient: No
[2018-01-21] MEDS: sitaGLIPtin PHOSPHATE 50 MG TABLET PO SCH (13:59)
[2018-01-21 14:29] LABS: URINE APPEARANCE CLEAR; URINE BILIRUBIN NEGATIVE (<2.0 mg/dL); URINE COLOR LTYELLOW; URINE GLUCOSE (UA) 2+ (NEGATIVE); URINE KETONE NEGATIVE (NEGATIVE); URINE LEUK ESTERASE NEGATIVE (NEGATIVE); URINE NITRITE NEGATIVE (NEGATIVE); URINE UROBILINOGEN NEGATIVE mg/dL (0.2-1.0)
[2018-01-21 14:37] LABS: URINE PROTEIN 1+ (NEGATIVE)
[2018-01-21 14:58] LABS: URINE CREATININE 74.8 mg/dL (20-370)
[2018-01-21 15:03] LABS: ANION GAP 11 (8-16); BLOOD UREA NITROGEN 25 mg/dL (7-18); CALCIUM 8.7 mg/dL (8.5-10.1); CHLORIDE 101 mmol/L (98-107); CO2 22 mmol/L (21-32); CREATININE 1.8 mg/dL (0.7-1.3); GLUCOSE,RANDOM 210 mg/dL (74-106); POTASSIUM 4.2 mmol/L (3.5-5.1); SODIUM 134 mmol/L (136-145)
--- NOTE | 2018-01-21 15:14 | EKG ---
Test Reason : Blood Pressure : / mmHG Vent. Rate : 107 BPM Atrial Rate : 107 BPM P-R Int : 142 ms QRS Dur : 088 ms QT Int : 322 ms P-R-T Axes : 067 004 030 degrees QTc Int : 429 ms SINUS TACHYCARDIA POSSIBLE LEFT ATRIAL ENLARGEMENT NONSPECIFIC T WAVE ABNORMALITY ABNORMAL ECG NO PREVIOUS ECGS AVAILABLE Confirmed by MD Brittany, Grayson ([id number]) on 01/21/2018 3:14:37 PM Referred By: Confirmed By:Grayson Soto MD
--- NOTE | 2018-01-21 15:16 | PN ---
Teaching Attending Note Name of Resident: Catherine De La Paz ATTENDING PHYSICIAN STATEMENT I saw and evaluated the patient. I reviewed the resident's note and discussed the case with the resident. I agree with the resident's findings and plan as documented. Nephrology Pt is a 68 year old male with pmhx of kidney transplant, DM, HTN, and HLD who presents with abdominal abscess. He had and I and D. He denies fevers or chills. He denies dysuria. He follows with Dr Shah. pmhx kidney transplant, ckd, dm, htn pshx kidney transplant nkda family hx denies social hx denies ros see hpi Current Medications Generic Name Dose Route Start Last Admin Trade Name Freq PRN Reason Stop Dose Admin Acetaminophen 650 mg 01/20/18 22:00 01/21/18 10:10 Tylenol - PO 650 mg Q6H PRN Administration FEVER Albuterol Sulfate 2 puff 01/21/18 10:00 Ventolin Hfa Inhaler - IH Q4H PRN SHORTNESS OF BREATH Piperacillin Sod/Tazobactam 50 mls @ 100 mls/hr 01/20/18 19:30 01/21/18 10:11 Sod 3.375 gm/ Dextrose IVPB 100 mls/hr Q8H-IV ROMEO Administration Protocol Insulin Aspart 1 vial 01/20/18 22:00 01/21/18 13:59 Novolog Vial Sliding Scale - SQ Not Given ACHS ROMEO Protocol Insulin Detemir 40 units 01/20/18 22:00 01/20/18 22:33 Levemir Vial SQ 40 units HS ROMEO Administration Mycophenolate Mofetil 1,000 mg 01/21/18 22:00 Cellcept - PO BID ROMEO Nifedipine 30 mg 01/21/18 10:00 01/21/18 10:12 Procardia Xl - PO 30 mg DAILY ROMEO Administration Oxycodone HCl 10 mg 01/20/18 22:00 Roxicodone - PO Q6H PRN PAIN LEVEL 4 - 6 Pantoprazole Sodium 40 mg 01/21/18 10:00 01/21/18 10:11 Protonix - PO 40 mg DAILY ROMEO Administration Prednisone 5 mg 01/21/18 10:00 01/21/18 10:11 Deltasone - PO 5 mg DAILY ROMEO Administration Sitagliptin Phosphate 50 mg 01/21/18 07:00 01/21/18 13:59 Januvia - PO 50 mg ACBK ROMEO Administration Tacrolimus 0.5 mg 01/20/18 22:00 01/21/18 10:11 Prograf PO 0.5 mg BID ROMEO Administration Laboratory Tests 01/20/18 01/20/18 01/21/18 12:10 12:10 06:00 WBC 19.0 H 21.3 H Hgb 14.8 13.1 D Plt Count 333 264 D Sodium Potassium Chloride Carbon Dioxide Anion Gap BUN Creatinine 1.8 H Urine Protein Urine Glucose (UA) Tacrolimus 01/21/18 01/21/18 01/21/18 13:55 13:55 14:15 WBC Hgb Plt Count Sodium 134 L Potassium 4.2 Chloride 101 Carbon Dioxide 22 Anion Gap 11 BUN 25 H Creatinine 1.8 H Urine Protein 1+ H Urine Glucose (UA) 2+ H Tacrolimus Pending cardio s1s2 reg pulm clear GI soft dressing in place - francis Impression 1. CKD 2. kidney transplant 3. HTN 4. DM 5. 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
[2018-01-21] MEDS ORDERED: PIPERACILLIN/TAZOB 3.375 GM 3.375 GM/50 ML BAG IVPB ONE (17:48)
[2018-01-21] MEDS ORDERED: INSULIN (NOVOLOG) ASPART 100 UNITS/ML 10ML VIAL ONE ×2 (17:54→21:15)
--- NOTE | 2018-01-21 18:16 | PN ---
Progress Note, Physician History of Present Illness: comfortable - Current Medication List Current Medications: Active Medications Acetaminophen (Tylenol -) 650 mg PO Q6H PRN PRN Reason: FEVER Last Admin: 01/21/18 10:10 Dose: 650 mg Albuterol Sulfate (Ventolin Hfa Inhaler -) 2 puff IH Q4H PRN PRN Reason: SHORTNESS OF BREATH Piperacillin Sod/Tazobactam (Sod 3.375 gm/ Dextrose) 50 mls @ 100 mls/hr IVPB Q8H-IV [facility]; Protocol Last Admin: 01/21/18 18:12 Dose: 100 mls/hr Insulin Aspart (Novolog Vial Sliding Scale -) 1 vial SQ ACHS [facility]; Protocol Last Admin: 01/21/18 18:12 Dose: 6 units Insulin Detemir (Levemir Vial) 40 units SQ HS [facility] Last Admin: 01/20/18 22:33 Dose: 40 units Mycophenolate Mofetil (Cellcept -) 1,000 mg PO BID [facility] Nifedipine (Procardia Xl -) 30 mg PO DAILY [facility] Last Admin: 01/21/18 10:12 Dose: 30 mg Oxycodone HCl (Roxicodone -) 10 mg PO Q6H PRN PRN Reason: PAIN LEVEL 4 - 6 Pantoprazole Sodium (Protonix -) 40 mg PO DAILY [facility] Last Admin: 01/21/18 10:11 Dose: 40 mg Prednisone (Deltasone -) 5 mg PO DAILY [facility] Last Admin: 01/21/18 10:11 Dose: 5 mg Sitagliptin Phosphate (Januvia -) 50 mg PO ACBK [facility] Last Admin: 01/21/18 13:59 Dose: 50 mg Tacrolimus (Prograf) 2 mg PO BID [facility] Tacrolimus (Prograf) 0.5 mg PO BID [facility] - Objective Vital Signs: Vital Signs Temperature 98.4 F 01/21/18 13:45 Pulse Rate 100 H 01/21/18 13:45 Respiratory Rate 20 01/21/18 13:45 Blood Pressure 110/60 01/21/18 13:45 O2 Sat by Pulse Oximetry (%) 97 01/21/18 09:30 Constitutional: Yes: No Distress HENT: Yes: Atraumatic Neck: Yes: Supple Cardiovascular: Yes: Regular Rate and Rhythm Respiratory: Yes: CTA Bilaterally Gastrointestinal: Yes: Other (abcess abdominal wall) Musculoskeletal: Yes: Other (abdominal wall infection...s/p i and d..dressing in place) Extremities: Yes: WNL Neurological: Yes: Alert, Oriented Labs: CBC, BMP 01/21/18 06:00 01/21/18 13:55 INR, PTT INR 1.01 (0.82-1.09) 01/20/18 15:57 Problem List - Problems (1) Abdominal wall abscess Assessment/Plan: iv abx id consult s/p debridement dressing in place Code(s): L02.211 - CUTANEOUS ABSCESS OF ABDOMINAL WALL (2) CKD (chronic kidney disease) Code(s): N18.9 - CHRONIC KIDNEY DISEASE, UNSPECIFIED (3) Diabetes Assessment/Plan: on meds bgms Code(s): E11.9 - TYPE 2 DIABETES MELLITUS WITHOUT COMPLICATIONS Qualifiers: Diabetes mellitus type: type 2 (4) HLD (hyperlipidemia) Code(s): E78.5 - HYPERLIPIDEMIA, UNSPECIFIED Qualifiers: Hyperlipidemia type: unspecified Qualified Code(s): E78.5 - Hyperlipidemia , unspecified (5) HTN (hypertension) Assessment/Plan: on meds stable Code(s): I10 - ESSENTIAL (PRIMARY) HYPERTENSION Qualifiers: Hypertension type: essential hypertension Qualified Code(s): I10 - Essential (primary) hypertension (6) Transplanted kidney Code(s): Z94.0 - KIDNEY TRANSPLANT STATUS
--- NOTE | 2018-01-21 19:06 | CON.ID ---
Consult Consult Specialty:: infectious diseases Reason for Consultation:: abd abscess - History of Present Illness Chief Complaint: abd pain History of Present Illness: 68 yo male PMH DM type 2, HTN, HLD, renal failure (on dialysis for 6 years) who presents to the emergency department with lower left quadrant pain. For several days. In an area where he shaves, may have been an ingrown hair. The patient reports that he is no longer on dialysis s/p kidney transplant. The patient denies any injury. He denies any fever, chills, nausea, vomit, diarrhea, constipation or urinary symptoms. The patient denies any chest pain, shortness of breath, headache and dizziness. the above was the admission history ,on workup patient was found to ahve abscess and the surgeon evaluated the patient and took the patient to the operating room where he underwent i and d of the abscess patient curently feeling well and ahs a dressing over the operated site - History Source History Provided By: Patient, Medical Record Limitations to Obtaining History: Language Barrier - Past Medical History Cardio/Vascular: Yes: HTN, Hyperlipdemia Renal/: Yes: Renal Failure Endocrine: Yes: Diabetes Mellitus - Alcohol/Substance Use Hx Alcohol Use: No - Smoking History Smoking history: Never smoked - Social History History of Recent Travel: Yes Home Medications - Allergies Allergies/Adverse Reactions: Allergies Allergy/AdvReac Type Severity Reaction Status Date / Time No Known Allergies Allergy Verified 01/20/18 10:29 - Home Medications Home Medications: Ambulatory Orders Acetaminophen W/ Codeine #3 [Tylenol # 3 -] 1 tab PO Q4H PRN #15 tablet MDD 6 Albuterol Sulfate [Proair Hfa] 8.5 gm IH DAILY 01/15/18 Insulin Detemir [Levemir Flextouch] 100 unit SQ DAILY 01/15/18 Insulin Lispro [Humalog] 100 unit SQ DAILY 01/15/18 Mycophenolate Mofetil [Cellcept -] 500 mg PO BID 01/15/18 Nifedipine [Procardia Xl] 30 mg PO DAILY 01/15/18 Pantoprazole Sodium [Protonix] 40 mg PO DAILY 01/15/18 Prednisolone [Millipred] 5 mg PO DAILY 01/15/18 Sitagliptin Phosphate [Januvia] 50 mg PO DAILY 01/15/18 Tacrolimus [Astagraf Xl] 0.5 mg PO BID 01/15/18 Tacrolimus [Prograf] 1 mg PO BID 01/15/18 Review of Systems - Review of Systems Constitutional: reports: No Symptoms Eyes: reports: No Symptoms HENT: reports: No Symptoms Neck: reports: No Symptoms Cardiovascular: reports: No Symptoms Respiratory: reports: No Symptoms Gastrointestinal: reports: No Symptoms Musculoskeletal: reports: Muscle Pain Integumentary: reports: Erythema, Wound Neurological: reports: No Symptoms Endocrine: reports: No Symptoms Hematology/Lymphatic: reports: No Symptoms Psychiatric: reports: No Symptoms Physical Exam Vital Signs: Vital Signs Temperature 98.4 F 01/21/18 13:45 Pulse Rate 100 H 01/21/18 13:45 Respiratory Rate 20 01/21/18 13:45 Blood Pressure 110/60 01/21/18 13:45 O2 Sat by Pulse Oximetry (%) 97 01/21/18 09:30 Constitutional: Yes: No Distress, Calm, Thin Cardiovascular: Yes: Regular Rate and Rhythm Respiratory: Yes: Regular, CTA Bilaterally Gastrointestinal: Yes: Normal Bowel Sounds, Soft Musculoskeletal: Yes: WNL Extremities: Yes: WNL Integumentary: Yes: Erythema, Other Wound/Incision: Yes: Dressing Dry and Intact Neurological: Yes: Alert, Oriented Psychiatric: Yes: Alert, Oriented Labs: CBC, BMP 01/21/18 06:00 01/21/18 13:55 Imaging - Results Chest X-ray: Report Reviewed, Image Reviewed Cat Scan: Report Reviewed, Image Reviewed Assessment/Plan Problem List - Problems (1) Abdominal wall abscess Code(s): L02.211 - CUTANEOUS ABSCESS OF ABDOMINAL WALL (2) CKD (chronic kidney disease) Code(s): N18.9 - CHRONIC KIDNEY DISEASE, UNSPECIFIED (3) Diabetes Code(s): E11.9 - TYPE 2 DIABETES MELLITUS WITHOUT COMPLICATIONS Qualifiers: Diabetes mellitus type: type 2 (4) HLD (hyperlipidemia) Code(s): E78.5 - HYPERLIPIDEMIA, UNSPECIFIED Qualifiers: Hyperlipidemia type: unspecified Qualified Code(s): E78.5 - Hyperlipidemia , unspecified (5) HTN (hypertension) Code(s): I10 - ESSENTIAL (PRIMARY) HYPERTENSION Qualifiers: Hypertension type: essential hypertension Qualified Code(s): I10 - Essential (primary) hypertension (6) Transplanted kidney Code(s): Z94.0 - KIDNEY TRANSPLANT STATUS plan will start patient on abx await for cx reports wound care rest as per surgical team
[2018-01-21] MEDS: CLINDAMYCIN 300 MG PREMIX IVPB 300 MG/50 ML BAG IVPB SCH (21:04)
[2018-01-21] MEDS ORDERED: INSULIN (LEVEMIR) 100 UNITS/ML UNITS SQ ONE (21:15)
[2018-01-21] MEDS: INSULIN (LEVEMIR) 100 UNITS/ML UNITS SQ SCH (22:04)
[2018-01-21] MEDS: TACROLIMUS ANHYDROUS 1 MG CAPSULE PO SCH (22:05)
[2018-01-22] MEDS: CLINDAMYCIN 300 MG PREMIX IVPB 300 MG/50 ML BAG IVPB SCH ×3 (02:23→20:19)
[2018-01-22] MEDS ORDERED: DEXTROSE 5%-WATER - 50 ML IVPB ONE ×2 (02:45→09:31)
[2018-01-22] MEDS ORDERED: PIPERACILLIN/TAZOBACTAM 2.25 GM VIAL IVPB ONE ×2 (02:45→09:31)
[2018-01-22] MEDS: PIPERACILLIN/TAZOB 2.25 GM 2.25 GM in DEXTROSE 5%-WATER - 50 ML IVPB SCH ×2 (02:55→09:57)
[2018-01-22] MEDS: sitaGLIPtin PHOSPHATE 50 MG TABLET PO SCH (06:50)
[2018-01-22] MEDS: INSULIN SLIDING SCALE (NOVOLOG) 1 VIAL SQ SCH ×4 (06:51→22:46)
[2018-01-22 07:29] LABS: ANION GAP 10 (8-16); BLOOD UREA NITROGEN 23 mg/dL (7-18); CALCIUM 9.2 mg/dL (8.5-10.1); CHLORIDE 106 mmol/L (98-107); CO2 24 mmol/L (21-32); CREATININE 1.6 mg/dL (0.7-1.3); POTASSIUM 3.6 mmol/L (3.5-5.1); SODIUM 140 mmol/L (136-145)
[2018-01-22 08:16] LABS: GLUCOSE,RANDOM 31 mg/dL (74-106)
[2018-01-22 09:10] LABS: BASO % 0.6 % (0-2.0); EOS % 0.4 % (0-4.5); HEMOGLOBIN 13.6 GM/dL (11.7-16.9); MCH 26.8 pg (25.7-33.7); MCHC 32.4 g/dl (32.0-35.9); MEAN CELL VOLUME 82.8 fl (80-96); MEAN PLT VOLUME 10.3 fl (7.5-11.1); PLATELET COUNT 275 K/MM3 (134-434); RBC 5.07 M/mm3 (4.00-5.60); RDW 14.2 % (11.9-15.9); WHITE BLOOD COUNT 22.6 K/mm3 (4.0-10.0)
[2018-01-22] MEDS ORDERED: PT OWN MED DRAWER 7, Y5N ONE ×4 (09:30→22:31)
--- NOTE | 2018-01-22 09:36 | PN ---
Progress Note, Physician Chief Complaint: Left abdominal wall abscess History of Present Illness: 68 yo male PMH DM type 2, HTN, HLD, s/p renal transplant at [facility] (on dialysis for 6 years) who presents to the emergency department with lower left quadrant pain, redness and swelling for several days. LUE vascular access 01/[address] Washington. He reports feeling weak. Low grade fevers persist. - Current Medication List Current Medications: Active Medications Acetaminophen (Tylenol -) 650 mg PO Q6H PRN PRN Reason: FEVER Last Admin: 01/21/18 10:10 Dose: 650 mg Albuterol Sulfate (Ventolin Hfa Inhaler -) 2 puff IH Q4H PRN PRN Reason: SHORTNESS OF BREATH Clindamycin Phosphate (Cleocin 300 Mg Premix Ivpb) 300 mg in 50 mls @ 100 mls/ hr IVPB Q8H-IV [facility]; Protocol Last Admin: 01/22/18 02:23 Dose: 100 mls/hr Piperacillin Sod/Tazobactam (Sod 2.25 gm/ Dextrose) 50 mls @ 100 mls/hr IVPB Q8H-IV [facility]; Protocol Last Admin: 01/22/18 02:55 Dose: 100 mls/hr Insulin Aspart (Novolog Vial Sliding Scale -) 1 vial SQ ACHS [facility]; Protocol Last Admin: 01/22/18 06:51 Dose: Not Given Insulin Detemir (Levemir Vial) 40 units SQ HS [facility] Last Admin: 01/21/18 22:04 Dose: 40 units Mycophenolate Mofetil (Cellcept -) 1,000 mg PO BID [facility] Last Admin: 01/21/18 22:04 Dose: 1,000 mg Nifedipine (Procardia Xl -) 30 mg PO DAILY [facility] Last Admin: 01/21/18 10:12 Dose: 30 mg Oxycodone HCl (Roxicodone -) 10 mg PO Q6H PRN PRN Reason: PAIN LEVEL 4 - 6 Pantoprazole Sodium (Protonix -) 40 mg PO DAILY [facility] Last Admin: 01/21/18 10:11 Dose: 40 mg Prednisone (Deltasone -) 5 mg PO DAILY [facility] Last Admin: 01/21/18 10:11 Dose: 5 mg Sitagliptin Phosphate (Januvia -) 50 mg PO ACBK [facility] Last Admin: 01/22/18 06:50 Dose: Not Given Tacrolimus (Prograf) 2 mg PO BID [facility] Last Admin: 01/21/18 22:05 Dose: 2 mg Tacrolimus (Prograf) 0.5 mg PO BID [facility] Last Admin: 01/21/18 22:05 Dose: 0.5 mg - Objective Vital Signs: Vital Signs Temperature 98.2 F 01/22/18 06:00 Pulse Rate 86 01/22/18 06:00 Respiratory Rate 18 01/22/18 06:00 Blood Pressure 151/71 01/22/18 06:00 O2 Sat by Pulse Oximetry (%) 99 01/22/18 05:13 Vital Signs Period Temp Pulse Resp BP Sys/Rouse Pulse Ox Last 24 Hr 98.2 F-99 F 86-106 18-20 102-151/50-72 99-99 Intake & Output 01/21/18 01/22/18 01/22/18 23:59 07:59 15:59 Weight 169 lb 6.4 oz Other: Voiding Method Urinal Urinal Height 5 ft 7 in Body Mass Index (BMI) 26.5 Weight Measurement Method Standing Scale Constitutional: Yes: Well Nourished, No Distress, Calm Eyes: Yes: Conjunctiva Clear, EOM Intact HENT: Yes: Atraumatic, Normocephalic, Pharyngeal Erythema Neck: Yes: Supple, Trachea Midline Cardiovascular: Yes: Regular Rate and Rhythm, S1, S2 Respiratory: Yes: Regular, CTA Bilaterally Gastrointestinal: Yes: Normal Bowel Sounds, Soft, Tenderness ...Rectal Exam: Yes: Deferred Genitourinary: No: CVA Tenderness - Left, CVA Tenderness - Right Musculoskeletal: No: Muscle Pain, Muscle Weakness Edema: No Peripheral Pulses WNL: Yes Integumentary: No: Jaundice, Rash Wound/Incision: Yes: Draining, Reddened, Unapproximated (1cm cruciate incison, 1 /2" iodoform packing, 4X4 gauze, tape), Other (induration lateral on flank non- fluctuant) Neurological: Yes: Alert, Oriented Psychiatric: Yes: Alert, Oriented Labs: CBC, BMP 01/22/18 08:50 01/22/18 05:50 INR, PTT INR 1.01 (0.82-1.09) 01/20/18 15:57 Problem List - Problems (1) Abdominal wall abscess Assessment/Plan: 68yo male MMP with a LLQ abdominal wall abscess PPD#1 s/p I&D of abdominal wall abscess, site is improving, decreased redness and swelling, decreased induration. Presumptive MRSA. Recent LUE proximal vascular access by Dr. Washington this sight may also need to be evaluated. Made a call to transplant service at [facility] to see if there were any additional recommendations. IV antibiotics ID evaluation adequate analgesia Daily dressing change LLQ Wound measurement: 1cm cruciate incision no drainage Dressing instructions: 1/2" iodoform packing, 4X4 gauze, tape will follow Code(s): L02.211 - CUTANEOUS ABSCESS OF ABDOMINAL WALL (2) HTN (hypertension) Code(s): I10 - ESSENTIAL (PRIMARY) HYPERTENSION Qualifiers: Hypertension type: essential hypertension Qualified Code(s): I10 - Essential (primary) hypertension (3) Diabetes Code(s): E11.9 - TYPE 2 DIABETES MELLITUS WITHOUT COMPLICATIONS Qualifiers: Diabetes mellitus type: type 2 (4) Transplanted kidney Code(s): Z94.0 - KIDNEY TRANSPLANT STATUS (5) HLD (hyperlipidemia) Code(s): E78.5 - HYPERLIPIDEMIA, UNSPECIFIED Qualifiers: Hyperlipidemia type: unspecified Qualified Code(s): E78.5 - Hyperlipidemia , unspecified
[2018-01-22] MEDS: MYCOPHENOLATE MOFETIL 500 MG TABLET PO SCH ×2 (09:56→22:47)
[2018-01-22] MEDS: PANTOPRAZOLE 40 MG TABLET (FP) PO SCH (09:56)
[2018-01-22] MEDS: TACROLIMUS ANHYDROUS 1 MG CAPSULE PO SCH ×2 (09:56→22:47)
[2018-01-22] MEDS: NIFEdipine E.R. 30 MG TABLET (FP) PO SCH (09:56)
[2018-01-22] MEDS: predniSONE 5 MG TABLET (UD) PO SCH (09:56)
[2018-01-22] MEDS: TACROLIMUS 0.5 MG CAPSULE PO SCH ×2 (10:00→22:47)
[2018-01-22] MEDS ORDERED: INSULIN (NOVOLOG) ASPART 100 UNITS/ML 10ML VIAL ONE (11:36)
--- NOTE | 2018-01-22 12:16 | PN ---
Progress Note, Physician History of Present Illness: comfortable - Current Medication List Current Medications: Active Medications Acetaminophen (Tylenol -) 650 mg PO Q6H PRN PRN Reason: FEVER Last Admin: 01/21/18 10:10 Dose: 650 mg Albuterol Sulfate (Ventolin Hfa Inhaler -) 2 puff IH Q4H PRN PRN Reason: SHORTNESS OF BREATH Clindamycin Phosphate (Cleocin 300 Mg Premix Ivpb) 300 mg in 50 mls @ 100 mls/ hr IVPB Q8H-IV [facility]; Protocol Last Admin: 01/22/18 11:33 Dose: 100 mls/hr Piperacillin Sod/Tazobactam (Sod 2.25 gm/ Dextrose) 50 mls @ 100 mls/hr IVPB Q8H-IV [facility]; Protocol Last Admin: 01/22/18 09:57 Dose: 100 mls/hr Insulin Aspart (Novolog Vial Sliding Scale -) 1 vial SQ ACHS [facility]; Protocol Last Admin: 01/22/18 11:37 Dose: 10 units Insulin Detemir (Levemir Vial) 40 units SQ HS [facility] Last Admin: 01/21/18 22:04 Dose: 40 units Mycophenolate Mofetil (Cellcept -) 1,000 mg PO BID [facility] Last Admin: 01/22/18 09:56 Dose: 1,000 mg Nifedipine (Procardia Xl -) 30 mg PO DAILY [facility] Last Admin: 01/22/18 09:56 Dose: 30 mg Oxycodone HCl (Roxicodone -) 10 mg PO Q6H PRN PRN Reason: PAIN LEVEL 4 - 6 Pantoprazole Sodium (Protonix -) 40 mg PO DAILY [facility] Last Admin: 01/22/18 09:56 Dose: 40 mg Prednisone (Deltasone -) 5 mg PO DAILY [facility] Last Admin: 01/22/18 09:56 Dose: 5 mg Sitagliptin Phosphate (Januvia -) 50 mg PO ACBK [facility] Last Admin: 01/22/18 06:50 Dose: Not Given Tacrolimus (Prograf) 2 mg PO BID [facility] Last Admin: 01/22/18 09:56 Dose: 2 mg Tacrolimus (Prograf) 0.5 mg PO BID [facility] Last Admin: 01/22/18 10:00 Dose: 0.5 mg - Objective Vital Signs: Vital Signs Temperature 98.2 F 01/22/18 06:00 Pulse Rate 86 06/20/18 06:00 Respiratory Rate 18 01/22/18 06:00 Blood Pressure 151/71 01/22/18 06:00 O2 Sat by Pulse Oximetry (%) 99 01/22/18 05:13 Constitutional: Yes: No Distress HENT: Yes: Atraumatic Neck: Yes: Supple Cardiovascular: Yes: Regular Rate and Rhythm Respiratory: Yes: CTA Bilaterally Gastrointestinal: Yes: Normal Bowel Sounds Musculoskeletal: Yes: Other (abd wall abcess, dressing in place) Edema: No Peripheral Pulses WNL: Yes Neurological: Yes: Alert, Oriented Labs: CBC, BMP 01/22/18 08:50 01/22/18 05:50 INR, PTT INR 1.01 (0.82-1.09) 01/20/18 15:57 Problem List - Problems (1) Abdominal wall abscess Assessment/Plan: iv abx id consult s/p debridement dressing in place Code(s): L02.211 - CUTANEOUS ABSCESS OF ABDOMINAL WALL (2) CKD (chronic kidney disease) Code(s): N18.9 - CHRONIC KIDNEY DISEASE, UNSPECIFIED (3) Diabetes Assessment/Plan: on meds bgms Code(s): E11.9 - TYPE 2 DIABETES MELLITUS WITHOUT COMPLICATIONS Qualifiers: Diabetes mellitus type: type 2 (4) HLD (hyperlipidemia) Code(s): E78.5 - HYPERLIPIDEMIA, UNSPECIFIED Qualifiers: Hyperlipidemia type: unspecified Qualified Code(s): E78.5 - Hyperlipidemia , unspecified (5) HTN (hypertension) Code(s): I10 - ESSENTIAL (PRIMARY) HYPERTENSION Qualifiers: Hypertension type: essential hypertension Qualified Code(s): I10 - Essential (primary) hypertension (6) Transplanted kidney Code(s): Z94.0 - KIDNEY TRANSPLANT STATUS
--- NOTE | 2018-01-22 12:48 | PN ---
Progress Note, Physician History of Present Illness: Pt seen and examined at bedside. He is awake and alert. He denies fevers or chills. - Current Medication List Current Medications: Active Medications Acetaminophen (Tylenol -) 650 mg PO Q6H PRN PRN Reason: FEVER Last Admin: 01/21/18 10:10 Dose: 650 mg Albuterol Sulfate (Ventolin Hfa Inhaler -) 2 puff IH Q4H PRN PRN Reason: SHORTNESS OF BREATH Clindamycin Phosphate (Cleocin 300 Mg Premix Ivpb) 300 mg in 50 mls @ 100 mls/ hr IVPB Q8H-IV [facility]; Protocol Last Admin: 01/22/18 11:33 Dose: 100 mls/hr Piperacillin Sod/Tazobactam (Sod 2.25 gm/ Dextrose) 50 mls @ 100 mls/hr IVPB Q8H-IV [facility]; Protocol Last Admin: 01/22/18 09:57 Dose: 100 mls/hr Insulin Aspart (Novolog Vial Sliding Scale -) 1 vial SQ ACHS [facility]; Protocol Last Admin: 01/22/18 11:37 Dose: 10 units Insulin Detemir (Levemir Vial) 40 units SQ HS [facility] Last Admin: 01/21/18 22:04 Dose: 40 units Mycophenolate Mofetil (Cellcept -) 1,000 mg PO BID [facility] Last Admin: 01/22/18 09:56 Dose: 1,000 mg Nifedipine (Procardia Xl -) 30 mg PO DAILY [facility] Last Admin: 01/22/18 09:56 Dose: 30 mg Oxycodone HCl (Roxicodone -) 10 mg PO Q6H PRN PRN Reason: PAIN LEVEL 4 - 6 Pantoprazole Sodium (Protonix -) 40 mg PO DAILY [facility] Last Admin: 01/22/18 09:56 Dose: 40 mg Prednisone (Deltasone -) 5 mg PO DAILY [facility] Last Admin: 01/22/18 09:56 Dose: 5 mg Sitagliptin Phosphate (Januvia -) 50 mg PO ACBK [facility] Last Admin: 01/22/18 06:50 Dose: Not Given Tacrolimus (Prograf) 2 mg PO BID [facility] Last Admin: 01/22/18 09:56 Dose: 2 mg Tacrolimus (Prograf) 0.5 mg PO BID [facility] Last Admin: 01/22/18 10:00 Dose: 0.5 mg - Objective Vital Signs: Vital Signs Temperature 98.2 F 01/22/18 06:00 Pulse Rate 86 01/22/18 06:00 Respiratory Rate 18 01/22/18 06:00 Blood Pressure 151/71 01/22/18 06:00 O2 Sat by Pulse Oximetry (%) 99 01/22/18 05:13 Constitutional: Yes: Calm Eyes: Yes: Conjunctiva Clear HENT: Yes: Atraumatic Cardiovascular: Yes: S1, S2 Respiratory: Yes: CTA Bilaterally Gastrointestinal: Yes: Soft, Other (dressing in place) Musculoskeletal: Yes: WNL Edema: No Neurological: Yes: Oriented Psychiatric: Yes: Oriented Labs: CBC, BMP 01/22/18 08:50 01/22/18 05:50 INR, PTT INR 1.01 (0.82-1.09) 01/20/18 15:57 Problem List - Problems (1) Abdominal wall abscess Code(s): L02.211 - CUTANEOUS ABSCESS OF ABDOMINAL WALL (2) CKD (chronic kidney disease) Code(s): N18.9 - CHRONIC KIDNEY DISEASE, UNSPECIFIED (3) Diabetes Code(s): E11.9 - TYPE 2 DIABETES MELLITUS WITHOUT COMPLICATIONS Qualifiers: Diabetes mellitus type: type 2 (4) HLD (hyperlipidemia) Code(s): E78.5 - HYPERLIPIDEMIA, UNSPECIFIED Qualifiers: Hyperlipidemia type: unspecified Qualified Code(s): E78.5 - Hyperlipidemia , unspecified (5) HTN (hypertension) Code(s): I10 - ESSENTIAL (PRIMARY) HYPERTENSION Qualifiers: Hypertension type: essential hypertension Qualified Code(s): I10 - Essential (primary) hypertension (6) Transplanted kidney Code(s): Z94.0 - KIDNEY TRANSPLANT STATUS Assessment/Plan Current Medications Generic Name Dose Route Start Last Admin Trade Name Freq PRN Reason Stop Dose Admin Acetaminophen 650 mg 01/20/18 22:00 01/21/18 10:10 Tylenol - PO 650 mg Q6H PRN Administration FEVER Albuterol Sulfate 2 puff 01/21/18 10:00 Ventolin Hfa Inhaler - IH Q4H PRN SHORTNESS OF BREATH Clindamycin Phosphate 300 mg in 50 mls @ 100 mls/hr 01/21/18 19:15 01/22/18 11:33 Cleocin 300 Mg Premix Ivpb IVPB 100 mls/hr Q8H-IV [facility] Administration Protocol Piperacillin Sod/Tazobactam 50 mls @ 100 mls/hr 01/22/18 02:00 01/22/18 09:57 Sod 2.25 gm/ Dextrose IVPB 100 mls/hr Q8H-IV [facility] Administration Protocol Insulin Aspart 1 vial 01/20/18 22:00 01/22/18 11:37 Novolog Vial Sliding Scale - SQ 10 units ACHS [facility] Administration Protocol Insulin Detemir 40 units 01/20/18 22:00 01/21/18 22:04 Levemir Vial SQ 40 units HS [facility] Administration Mycophenolate Mofetil 1,000 mg 01/21/18 22:00 01/22/18 09:56 Cellcept - PO 1,000 mg BID [facility] Administration Nifedipine 30 mg 01/21/18 10:00 01/22/18 09:56 Procardia Xl - PO 30 mg DAILY [facility] Administration Oxycodone HCl 10 mg 01/20/18 22:00 Roxicodone - PO Q6H PRN PAIN LEVEL 4 - 6 Pantoprazole Sodium 40 mg 01/21/18 10:00 01/22/18 09:56 Protonix - PO 40 mg DAILY [facility] Administration Prednisone 5 mg 01/21/18 10:00 01/22/18 09:56 Deltasone - PO 5 mg DAILY [facility] Administration Sitagliptin Phosphate 50 mg 01/21/18 07:00 01/22/18 06:50 Januvia - PO Not Given ACBK [facility] Tacrolimus 2 mg 01/21/18 22:00 01/22/18 09:56 Prograf PO 2 mg BID [facility] Administration Tacrolimus 0.5 mg 01/21/18 22:00 01/22/18 10:00 Prograf PO 0.5 mg BID [facility] Administration Impression 1. CKD 2. kidney transplant 3. HTN 4. DM 5. abscess Plan - prograf level will not be accurate, can repeat in am - renal function is stabilizing - ID follow up - cont to follow cultures - will follow Dr Isaacs
--- NOTE | 2018-01-22 13:44 | PN ---
Progress Note, Physician History of Present Illness: stable no new issues - Current Medication List Current Medications: Active Medications Acetaminophen (Tylenol -) 650 mg PO Q6H PRN PRN Reason: FEVER Last Admin: 01/21/18 10:10 Dose: 650 mg Albuterol Sulfate (Ventolin Hfa Inhaler -) 2 puff IH Q4H PRN PRN Reason: SHORTNESS OF BREATH Clindamycin Phosphate (Cleocin 300 Mg Premix Ivpb) 300 mg in 50 mls @ 100 mls/ hr IVPB Q8H-IV [facility]; Protocol Last Admin: 01/22/18 11:33 Dose: 100 mls/hr Piperacillin Sod/Tazobactam (Sod 2.25 gm/ Dextrose) 50 mls @ 100 mls/hr IVPB Q8H-IV [facility]; Protocol Last Admin: 01/22/18 09:57 Dose: 100 mls/hr Insulin Aspart (Novolog Vial Sliding Scale -) 1 vial SQ ACHS [facility]; Protocol Last Admin: 01/22/18 11:37 Dose: 10 units Insulin Detemir (Levemir Vial) 40 units SQ HS [facility] Last Admin: 01/21/18 22:04 Dose: 40 units Mycophenolate Mofetil (Cellcept -) 1,000 mg PO BID [facility] Last Admin: 01/22/18 09:56 Dose: 1,000 mg Nifedipine (Procardia Xl -) 30 mg PO DAILY [facility] Last Admin: 01/22/18 09:56 Dose: 30 mg Oxycodone HCl (Roxicodone -) 10 mg PO Q6H PRN PRN Reason: PAIN LEVEL 4 - 6 Pantoprazole Sodium (Protonix -) 40 mg PO DAILY [facility] Last Admin: 01/22/18 09:56 Dose: 40 mg Prednisone (Deltasone -) 5 mg PO DAILY [facility] Last Admin: 01/22/18 09:56 Dose: 5 mg Sitagliptin Phosphate (Januvia -) 50 mg PO ACBK [facility] Last Admin: 01/22/18 06:50 Dose: Not Given Tacrolimus (Prograf) 2 mg PO BID [facility] Last Admin: 01/22/18 09:56 Dose: 2 mg Tacrolimus (Prograf) 0.5 mg PO BID [facility] Last Admin: 01/22/18 10:00 Dose: 0.5 mg - Objective Vital Signs: Vital Signs Temperature 97.6 F 01/22/18 10:00 Pulse Rate 109 H 01/22/18 10:00 Respiratory Rate 20 01/22/18 10:00 Blood Pressure 148/73 01/22/18 10:00 O2 Sat by Pulse Oximetry (%) 99 01/22/18 05:13 Constitutional: Yes: No Distress, Calm Neck: Yes: Supple, Trachea Midline Cardiovascular: Yes: Regular Rate and Rhythm Respiratory: Yes: Regular, CTA Bilaterally Gastrointestinal: Yes: Normal Bowel Sounds, Soft Musculoskeletal: Yes: WNL Extremities: Yes: WNL Neurological: Yes: Alert, Oriented Psychiatric: Yes: Alert, Oriented Labs: CBC, BMP 01/22/18 08:50 01/22/18 05:50 INR, PTT INR 1.01 (0.82-1.09) 01/20/18 15:57 Assessment/Plan Problem List - Problems (1) Abdominal wall abscess Code(s): L02.211 - CUTANEOUS ABSCESS OF ABDOMINAL WALL (2) CKD (chronic kidney disease) Code(s): N18.9 - CHRONIC KIDNEY DISEASE, UNSPECIFIED (3) Diabetes Code(s): E11.9 - TYPE 2 DIABETES MELLITUS WITHOUT COMPLICATIONS Qualifiers: Diabetes mellitus type: type 2 (4) HLD (hyperlipidemia) Code(s): E78.5 - HYPERLIPIDEMIA, UNSPECIFIED Qualifiers: Hyperlipidemia type: unspecified Qualified Code(s): E78.5 - Hyperlipidemia , unspecified (5) HTN (hypertension) Code(s): I10 - ESSENTIAL (PRIMARY) HYPERTENSION Qualifiers: Hypertension type: essential hypertension Qualified Code(s): I10 - Essential (primary) hypertension (6) Transplanted kidney Code(s): Z94.0 - KIDNEY TRANSPLANT STATUS plan continue abx await for cx reports wound care rest as per surgical team
[2018-01-22 13:48] LABS: ANISOCYTOSIS 0; MACROCYTOSIS 0; PLATELET ESTIMATE NORMAL
--- NOTE | 2018-01-22 22:17 | PN ---
Progress Note (short form) - Note Progress Note: VA[facility] Surgery Pt seen and examined. On 01/15 Dr. edmonds removed a thrombosed AVG segment in left upper ext. Area is clean, dry and intact [place] are intact. Dr. Edmonds is away until saturday. No need for any intervention currently. [place] can be removed next week. Please make sure pt follows up with Dr. Edmonds in his office. Baldomero Fernando DO
[2018-01-22] MEDS: INSULIN (LEVEMIR) 100 UNITS/ML UNITS SQ SCH (22:46)
[2018-01-23] MEDS: CLINDAMYCIN 300 MG PREMIX IVPB 300 MG/50 ML BAG IVPB SCH ×2 (02:11→10:44)
--- NOTE | 2018-01-23 07:47 | PN ---
Progress Note, Physician Chief Complaint: Left abdominal wall abscess History of Present Illness: 68 yo male PMH DM type 2, HTN, HLD, s/p renal transplant at [facility] (on dialysis for 6 years) who presents to the emergency department with lower left quadrant pain, redness and swelling for several days. LUE vascular access 01/[address] Washington. He reports feeling weak. Low grade fevers persist. - Current Medication List Current Medications: Active Medications Acetaminophen (Tylenol -) 650 mg PO Q6H PRN PRN Reason: FEVER Last Admin: 01/21/18 10:10 Dose: 650 mg Albuterol Sulfate (Ventolin Hfa Inhaler -) 2 puff IH Q4H PRN PRN Reason: SHORTNESS OF BREATH Clindamycin Phosphate (Cleocin 300 Mg Premix Ivpb) 300 mg in 50 mls @ 100 mls/ hr IVPB Q8H-IV [facility]; Protocol Last Admin: 01/23/18 02:11 Dose: 100 mls/hr Insulin Aspart (Novolog Vial Sliding Scale -) 1 vial SQ ACHS [facility]; Protocol Last Admin: 01/22/18 22:46 Dose: 8 units Insulin Detemir (Levemir Vial) 40 units SQ HS [facility] Last Admin: 01/22/18 22:46 Dose: 40 units Mycophenolate Mofetil (Cellcept -) 1,000 mg PO BID [facility] Last Admin: 01/22/18 22:47 Dose: 1,000 mg Nifedipine (Procardia Xl -) 30 mg PO DAILY [facility] Last Admin: 01/22/18 09:56 Dose: 30 mg Oxycodone HCl (Roxicodone -) 10 mg PO Q6H PRN PRN Reason: PAIN LEVEL 4 - 6 Pantoprazole Sodium (Protonix -) 40 mg PO DAILY [facility] Last Admin: 01/22/18 09:56 Dose: 40 mg Prednisone (Deltasone -) 5 mg PO DAILY [facility] Last Admin: 01/22/18 09:56 Dose: 5 mg Sitagliptin Phosphate (Januvia -) 50 mg PO ACBK [facility] Last Admin: 01/22/18 06:50 Dose: Not Given Tacrolimus (Prograf) 2 mg PO BID [facility] Last Admin: 01/22/18 22:47 Dose: 2 mg Tacrolimus (Prograf) 0.5 mg PO BID [facility] Last Admin: 01/22/18 22:47 Dose: 0.5 mg - Objective Vital Signs: Vital Signs Temperature 98.4 F 01/23/18 06:00 Pulse Rate 88 01/23/18 06:00 Respiratory Rate 17 01/23/18 06:00 Blood Pressure 154/86 01/23/18 06:00 O2 Sat by Pulse Oximetry (%) 97 01/22/18 21:00 Vital Signs Period Temp Pulse Resp BP Sys/Rouse Pulse Ox Last 24 Hr 97.6 F-98.4 F 73-109 17-20 130-154/70-86 97-99 Constitutional: Yes: Well Nourished, No Distress, Calm Eyes: Yes: Conjunctiva Clear, EOM Intact HENT: Yes: Atraumatic, Normocephalic Neck: Yes: Supple, Trachea Midline Cardiovascular: Yes: Regular Rate and Rhythm, S1, S2 Respiratory: Yes: Regular, CTA Bilaterally Gastrointestinal: Yes: Normal Bowel Sounds, Soft, Tenderness (incisonal) ...Rectal Exam: Yes: Deferred Genitourinary: No: CVA Tenderness - Left, CVA Tenderness - Right Extremities: No: Cool, Cyanosis Edema: No Peripheral Pulses WNL: Yes Peripheral Pulses: Left Doralis Pedis: 2+, Right Dorsalis Pedis: 2+ Integumentary: No: Jaundice, Rash Wound/Incision: Yes: Clean/Dry, Well Approximated, Dressing Dry and Intact Neurological: Yes: Alert, Oriented Psychiatric: Yes: Alert, Oriented Labs: CBC, BMP 01/22/18 08:50 INR, PTT INR 1.01 (0.82-1.09) 01/20/18 15:57 Microbiology 01/20/18 17:30 Abdomen Gram Stain - Final 01/20/18 17:30 Abdomen Wound Culture - Preliminary Presumptive Mrsa (Pbp2a Pos) 01/20/18 12:16 Blood - Peripheral Venous Blood Culture - Preliminary NO GROWTH OBTAINED AFTER 48 HOURS, INCUBATION TO CONTINUE FOR 3 DAYS. 01/20/18 12:16 Blood - Peripheral Venous Blood Culture - Preliminary NO GROWTH OBTAINED AFTER 48 HOURS, INCUBATION TO CONTINUE FOR 3 DAYS. 01/20/18 12:45 Urine - Urine Clean Catch Urine Culture - Final NO GROWTH OBTAINED Problem List - Problems (1) Abdominal wall abscess Assessment/Plan: 68yo male MMP with a LLQ abdominal wall abscess PPD#3 s/p I&D of abdominal wall abscess, site is improving, decreased redness and swelling, decreased induration. Presumptive MRSA. Recent LUE proximal vascular access by Dr. Washington this sight may also need to be evaluated. Made a call to transplant service at [facility] to see if there were any additional recommendations. IV antibiotics ID evaluation adequate analgesia Daily dressing change LLQ Wound measurement: 1cm cruciate incision no drainage Dressing instructions: 1/2" iodoform packing, 4X4 gauze, tape will follow Code(s): L02.211 - CUTANEOUS ABSCESS OF ABDOMINAL WALL (2) HTN (hypertension) Code(s): I10 - ESSENTIAL (PRIMARY) HYPERTENSION Qualifiers: Hypertension type: essential hypertension Qualified Code(s): I10 - Essential (primary) hypertension (3) Diabetes Code(s): E11.9 - TYPE 2 DIABETES MELLITUS WITHOUT COMPLICATIONS Qualifiers: Diabetes mellitus type: type 2 (4) Transplanted kidney Code(s): Z94.0 - KIDNEY TRANSPLANT STATUS (5) HLD (hyperlipidemia) Code(s): E78.5 - HYPERLIPIDEMIA, UNSPECIFIED Qualifiers: Hyperlipidemia type: unspecified Qualified Code(s): E78.5 - Hyperlipidemia , unspecified
[2018-01-23] MEDS: sitaGLIPtin PHOSPHATE 50 MG TABLET PO SCH (08:30)
[2018-01-23] MEDS: INSULIN SLIDING SCALE (NOVOLOG) 1 VIAL SQ SCH ×4 (08:30→21:46)
[2018-01-23 08:39] LABS: ALBUMIN 3.1 g/dl (3.4-5.0); ANION GAP 11 (8-16); BLOOD UREA NITROGEN 20 mg/dL (7-18); CALCIUM 9.6 mg/dL (8.5-10.1); CHLORIDE 103 mmol/L (98-107); CO2 24 mmol/L (21-32); GLUCOSE,RANDOM 54 mg/dL (74-106); POTASSIUM 3.9 mmol/L (3.5-5.1); SGPT/ALT 24 U/L (12-78); SODIUM 138 mmol/L (136-145)
[2018-01-23 08:45] LABS: ALK PHOS 162 U/L (45-117); BILIRUBIN,TOTAL 0.6 mg/dL (0.2-1.0); CREATININE 1.4 mg/dL (0.7-1.3); SGOT/AST 17 U/L (15-37); TOT PROT 6.9 g/dl (6.4-8.2)
[2018-01-23] MEDS: PANTOPRAZOLE 40 MG TABLET (FP) PO SCH (10:45)
[2018-01-23] MEDS: predniSONE 5 MG TABLET (UD) PO SCH (10:45)
[2018-01-23] MEDS: NIFEdipine E.R. 30 MG TABLET (FP) PO SCH (10:45)
[2018-01-23] MEDS: MYCOPHENOLATE MOFETIL 500 MG TABLET PO SCH ×2 (10:46→21:46)
[2018-01-23] MEDS: TACROLIMUS ANHYDROUS 1 MG CAPSULE PO SCH ×2 (12:00→21:46)
[2018-01-23] MEDS: TACROLIMUS 0.5 MG CAPSULE PO SCH ×2 (12:00→21:46)
--- NOTE | 2018-01-23 14:36 | PN ---
Progress Note, Physician History of Present Illness: Pt seen and examined at bedside. He is out of bed to chair. He denies fevers or chills. - Current Medication List Current Medications: Active Medications Acetaminophen (Tylenol -) 650 mg PO Q6H PRN PRN Reason: FEVER Last Admin: 01/21/18 10:10 Dose: 650 mg Albuterol Sulfate (Ventolin Hfa Inhaler -) 2 puff IH Q4H PRN PRN Reason: SHORTNESS OF BREATH Clindamycin Phosphate (Cleocin 300 Mg Premix Ivpb) 300 mg in 50 mls @ 100 mls/ hr IVPB Q8H-IV [facility]; Protocol Last Admin: 01/23/18 10:44 Dose: 100 mls/hr Insulin Aspart (Novolog Vial Sliding Scale -) 1 vial SQ ACHS [facility]; Protocol Last Admin: 01/23/18 11:04 Dose: 8 units Insulin Detemir (Levemir Vial) 20 units SQ HS [facility] Mycophenolate Mofetil (Cellcept -) 1,000 mg PO BID [facility] Last Admin: 01/23/18 10:46 Dose: 1,000 mg Nifedipine (Procardia Xl -) 30 mg PO DAILY [facility] Last Admin: 01/23/18 10:45 Dose: 30 mg Oxycodone HCl (Roxicodone -) 10 mg PO Q6H PRN PRN Reason: PAIN LEVEL 4 - 6 Pantoprazole Sodium (Protonix -) 40 mg PO DAILY [facility] Last Admin: 01/23/18 10:45 Dose: 40 mg Prednisone (Deltasone -) 5 mg PO DAILY [facility] Last Admin: 01/23/18 10:45 Dose: 5 mg Sitagliptin Phosphate (Januvia -) 50 mg PO ACBK [facility] Last Admin: 01/23/18 08:30 Dose: Not Given Tacrolimus (Prograf) 2 mg PO BID [facility] Last Admin: 01/23/18 12:00 Dose: 2 mg Tacrolimus (Prograf) 0.5 mg PO BID [facility] Last Admin: 01/23/18 12:00 Dose: 0.5 mg - Objective Vital Signs: Vital Signs Temperature 98 F 01/23/18 10:00 Pulse Rate 102 H 01/23/18 10:00 Respiratory Rate 18 01/23/18 10:00 Blood Pressure 120/70 01/23/18 10:00 O2 Sat by Pulse Oximetry (%) 97 01/22/18 21:00 Constitutional: Yes: Calm Eyes: Yes: Conjunctiva Clear HENT: Yes: Atraumatic Neck: Yes: Supple Cardiovascular: Yes: S1, S2 Gastrointestinal: Yes: Soft, Other (dressing in place) Genitourinary: Yes: Other (graft soft and non tender) Musculoskeletal: Yes: WNL Edema: No Neurological: Yes: Oriented Psychiatric: Yes: Oriented Labs: CBC, BMP 01/22/18 08:50 01/23/18 07:10 INR, PTT INR 1.01 (0.82-1.09) 01/20/18 15:57 Problem List - Problems (1) Abdominal wall abscess Code(s): L02.211 - CUTANEOUS ABSCESS OF ABDOMINAL WALL (2) CKD (chronic kidney disease) Code(s): N18.9 - CHRONIC KIDNEY DISEASE, UNSPECIFIED (3) Diabetes Code(s): E11.9 - TYPE 2 DIABETES MELLITUS WITHOUT COMPLICATIONS Qualifiers: Diabetes mellitus type: type 2 (4) HLD (hyperlipidemia) Code(s): E78.5 - HYPERLIPIDEMIA, UNSPECIFIED Qualifiers: Hyperlipidemia type: unspecified Qualified Code(s): E78.5 - Hyperlipidemia , unspecified (5) HTN (hypertension) Code(s): I10 - ESSENTIAL (PRIMARY) HYPERTENSION Qualifiers: Hypertension type: essential hypertension Qualified Code(s): I10 - Essential (primary) hypertension (6) Transplanted kidney Code(s): Z94.0 - KIDNEY TRANSPLANT STATUS Assessment/Plan Current Medications Generic Name Dose Route Start Last Admin Trade Name Freq PRN Reason Stop Dose Admin Acetaminophen 650 mg 01/20/18 22:00 01/21/18 10:10 Tylenol - PO 650 mg Q6H PRN Administration FEVER Albuterol Sulfate 2 puff 01/21/18 10:00 Ventolin Hfa Inhaler - IH Q4H PRN SHORTNESS OF BREATH Clindamycin Phosphate 300 mg in 50 mls @ 100 mls/hr 01/21/18 19:15 01/23/18 10:44 Cleocin 300 Mg Premix Ivpb IVPB 100 mls/hr Q8H-IV [facility] Administration Protocol Insulin Aspart 1 vial 01/20/18 22:00 01/23/18 11:04 Novolog Vial Sliding Scale - SQ 8 units ACHS [facility] Administration Protocol Insulin Detemir 20 units 01/23/18 22:00 Levemir Vial SQ HS [facility] Mycophenolate Mofetil 1,000 mg 01/21/18 22:00 01/23/18 10:46 Cellcept - PO 1,000 mg BID [facility] Administration Nifedipine 30 mg 01/21/18 10:00 01/23/18 10:45 Procardia Xl - PO 30 mg DAILY [facility] Administration Oxycodone HCl 10 mg 01/20/18 22:00 Roxicodone - PO Q6H PRN PAIN LEVEL 4 - 6 Pantoprazole Sodium 40 mg 01/21/18 10:00 01/23/18 10:45 Protonix - PO 40 mg DAILY [facility] Administration Prednisone 5 mg 01/21/18 10:00 01/23/18 10:45 Deltasone - PO 5 mg DAILY [facility] Administration Sitagliptin Phosphate 50 mg 01/21/18 07:00 01/23/18 08:30 Januvia - PO Not Given ACBK [facility] Tacrolimus 2 mg 01/21/18 22:00 01/23/18 12:00 Prograf PO 2 mg BID [facility] Administration Tacrolimus 0.5 mg 01/21/18 22:00 01/23/18 12:00 Prograf PO 0.5 mg BID [facility] Administration Impression 1. CKD 2. kidney transplant 3. HTN 4. DM 5. abscess Plan - renal function is stable - cont wound care - surgery follow up - ID follow up - cont to follow cultures - will follow Dr Isaacs
--- NOTE | 2018-01-23 14:54 | PN ---
Progress Note, Physician History of Present Illness: stable no new issues vascular going to see the patient - Current Medication List Current Medications: Active Medications Acetaminophen (Tylenol -) 650 mg PO Q6H PRN PRN Reason: FEVER Last Admin: 01/21/18 10:10 Dose: 650 mg Albuterol Sulfate (Ventolin Hfa Inhaler -) 2 puff IH Q4H PRN PRN Reason: SHORTNESS OF BREATH Clindamycin Phosphate (Cleocin 300 Mg Premix Ivpb) 300 mg in 50 mls @ 100 mls/ hr IVPB Q8H-IV [facility]; Protocol Last Admin: 01/23/18 10:44 Dose: 100 mls/hr Insulin Aspart (Novolog Vial Sliding Scale -) 1 vial SQ ACHS [facility]; Protocol Last Admin: 01/23/18 11:04 Dose: 8 units Insulin Detemir (Levemir Vial) 20 units SQ HS [facility] Mycophenolate Mofetil (Cellcept -) 1,000 mg PO BID [facility] Last Admin: 01/23/18 10:46 Dose: 1,000 mg Nifedipine (Procardia Xl -) 30 mg PO DAILY [facility] Last Admin: 01/23/18 10:45 Dose: 30 mg Pantoprazole Sodium (Protonix -) 40 mg PO DAILY [facility] Last Admin: 01/23/18 10:45 Dose: 40 mg Prednisone (Deltasone -) 5 mg PO DAILY [facility] Last Admin: 01/23/18 10:45 Dose: 5 mg Sitagliptin Phosphate (Januvia -) 50 mg PO ACBK [facility] Last Admin: 01/23/18 08:30 Dose: Not Given Tacrolimus (Prograf) 2 mg PO BID [facility] Last Admin: 01/23/18 12:00 Dose: 2 mg Tacrolimus (Prograf) 0.5 mg PO BID [facility] Last Admin: 01/23/18 12:00 Dose: 0.5 mg - Objective Vital Signs: Vital Signs Temperature 98 F 01/23/18 10:00 Pulse Rate 102 H 01/23/18 10:00 Respiratory Rate 18 01/23/18 10:00 Blood Pressure 120/70 01/23/18 10:00 O2 Sat by Pulse Oximetry (%) 97 01/22/18 21:00 Constitutional: Yes: No Distress, Calm Cardiovascular: Yes: Regular Rate and Rhythm Respiratory: Yes: Regular, CTA Bilaterally Gastrointestinal: Yes: Normal Bowel Sounds, Soft Musculoskeletal: Yes: WNL Extremities: Yes: WNL Wound/Incision: Yes: Dressing Dry and Intact Neurological: Yes: Alert, Oriented Psychiatric: Yes: Alert, Oriented Labs: CBC, BMP 01/22/18 08:50 01/23/18 07:10 INR, PTT INR 1.01 (0.82-1.09) 01/20/18 15:57 Assessment/Plan Problem List - Problems (1) Abdominal wall abscess Code(s): L02.211 - CUTANEOUS ABSCESS OF ABDOMINAL WALL (2) CKD (chronic kidney disease) Code(s): N18.9 - CHRONIC KIDNEY DISEASE, UNSPECIFIED (3) Diabetes Code(s): E11.9 - TYPE 2 DIABETES MELLITUS WITHOUT COMPLICATIONS Qualifiers: Diabetes mellitus type: type 2 (4) HLD (hyperlipidemia) Code(s): E78.5 - HYPERLIPIDEMIA, UNSPECIFIED Qualifiers: Hyperlipidemia type: unspecified Qualified Code(s): E78.5 - Hyperlipidemia , unspecified (5) HTN (hypertension) Code(s): I10 - ESSENTIAL (PRIMARY) HYPERTENSION Qualifiers: Hypertension type: essential hypertension Qualified Code(s): I10 - Essential (primary) hypertension (6) Transplanted kidney Code(s): Z94.0 - KIDNEY TRANSPLANT STATUS cx reports noted inspite of clinda patients wbc is going up patient is a kidney transplant patient in view of that claros tart patient on linezoloid as bactrim has apotency to harm the kidneys plan will stop clinda will start on linezoloid rest continue current mgmt await for vascular to see the patient
[2018-01-23 15:50] LABS: HEMATOCRIT 41.3 % (35.4-49); HEMOGLOBIN 13.1 GM/dL (11.7-16.9); MCH 26.2 pg (25.7-33.7); MCHC 31.8 g/dl (32.0-35.9); MEAN CELL VOLUME 82.5 fl (80-96); MEAN PLT VOLUME 9.3 fl (7.5-11.1); PLATELET COUNT 368 K/MM3 (134-434); RBC 5.01 M/mm3 (4.00-5.60); RDW 14.5 % (11.9-15.9); WHITE BLOOD COUNT 16.3 K/mm3 (4.0-10.0)
[2018-01-23] MEDS: LINEZOLID 600 MG TABLET (RESTRICTED TO ID) PO SCH ×2 (16:25→21:45)
[2018-01-23 17:17] LABS: ANION GAP 12 (8-16); BLOOD UREA NITROGEN 23 mg/dL (7-18); CHLORIDE 103 mmol/L (98-107); CO2 21 mmol/L (21-32); CREATININE 1.8 mg/dL (0.7-1.3); GLUCOSE,RANDOM 201 mg/dL (74-106); SODIUM 136 mmol/L (136-145)
--- NOTE | 2018-01-23 19:54 | PN ---
Progress Note, Physician History of Present Illness: comfortable - Current Medication List Current Medications: Active Medications Acetaminophen (Tylenol -) 650 mg PO Q6H PRN PRN Reason: FEVER Last Admin: 01/21/18 10:10 Dose: 650 mg Albuterol Sulfate (Ventolin Hfa Inhaler -) 2 puff IH Q4H PRN PRN Reason: SHORTNESS OF BREATH Insulin Aspart (Novolog Vial Sliding Scale -) 1 vial SQ [facility]; Protocol Last Admin: 01/23/18 16:26 Dose: 8 units Insulin Detemir (Levemir Vial) [address] [facility] Linezolid (Zyvox (Restricted To Id) -) 600 mg PO BID [facility] Last Admin: 01/23/18 16:25 Dose: 600 mg Mycophenolate Mofetil (Cellcept -) 1,000 mg PO BID [facility] Last Admin: 01/23/18 10:46 Dose: 1,000 mg Nifedipine (Procardia Xl -) 30 mg PO DAILY [facility] Last Admin: 01/23/18 10:45 Dose: 30 mg Pantoprazole Sodium (Protonix -) 40 mg PO DAILY [facility] Last Admin: 01/23/18 10:45 Dose: 40 mg Prednisone (Deltasone -) 5 mg PO DAILY [facility] Last Admin: 01/23/18 10:45 Dose: 5 mg Sitagliptin Phosphate (Januvia -) 50 mg PO ACBK [facility] Last Admin: 01/23/18 08:30 Dose: Not Given Tacrolimus (Prograf) 2 mg PO BID [facility] Last Admin: 01/23/18 12:00 Dose: 2 mg Tacrolimus (Prograf) 0.5 mg PO BID [facility] Last Admin: 01/23/18 12:00 Dose: 0.5 mg - Objective Vital Signs: Vital Signs Temperature 98.3 F 01/23/18 18:05 Pulse Rate 98 H 01/23/18 18:05 Respiratory Rate 20 01/23/18 18:05 Blood Pressure 161/79 01/23/18 18:05 O2 Sat by Pulse Oximetry (%) 98 01/23/18 09:00 Constitutional: Yes: No Distress HENT: Yes: Atraumatic Neck: Yes: Supple Cardiovascular: Yes: Regular Rate and Rhythm Respiratory: Yes: CTA Bilaterally Gastrointestinal: Yes: Normal Bowel Sounds, Other (abdominal wall abcess) Extremities: Yes: WNL Neurological: Yes: Alert, Oriented Labs: CBC, BMP 01/23/18 15:30 01/23/18 15:30 INR, PTT INR 1.01 (0.82-1.09) 01/20/18 15:57 Problem List - Problems (1) Abdominal wall abscess Assessment/Plan: iv abx s/p i and d id and surgery consult Code(s): L02.211 - CUTANEOUS ABSCESS OF ABDOMINAL WALL (2) CKD (chronic kidney disease) Code(s): N18.9 - CHRONIC KIDNEY DISEASE, UNSPECIFIED (3) Diabetes Assessment/Plan: on meds bgms Code(s): E11.9 - TYPE 2 DIABETES MELLITUS WITHOUT COMPLICATIONS Qualifiers: Diabetes mellitus type: type 2 (4) HLD (hyperlipidemia) Code(s): E78.5 - HYPERLIPIDEMIA, UNSPECIFIED Qualifiers: Hyperlipidemia type: unspecified Qualified Code(s): E78.5 - Hyperlipidemia , unspecified (5) HTN (hypertension) Assessment/Plan: on meds stable Code(s): I10 - ESSENTIAL (PRIMARY) HYPERTENSION Qualifiers: Hypertension type: essential hypertension Qualified Code(s): I10 - Essential (primary) hypertension (6) Transplanted kidney Code(s): Z94.0 - KIDNEY TRANSPLANT STATUS
[2018-01-23] MEDS ORDERED: INSULIN (NOVOLOG) ASPART 100 UNITS/ML 10ML VIAL ONE (20:54)
[2018-01-23] MEDS: INSULIN (LEVEMIR) 100 UNITS/ML UNITS SQ SCH (21:47)
[2018-01-24] MEDS: sitaGLIPtin PHOSPHATE 50 MG TABLET PO SCH (06:46)
[2018-01-24] MEDS: INSULIN SLIDING SCALE (NOVOLOG) 1 VIAL SQ SCH ×5 (06:46→21:57)
[2018-01-24] MEDS ORDERED: INSULIN (NOVOLOG) ASPART 100 UNITS/ML 10ML VIAL ONE ×2 (06:48→17:22)
[2018-01-24] MEDS ORDERED: PT OWN MED DRAWER 7, Y5N ONE (10:25)
[2018-01-24] MEDS: MYCOPHENOLATE MOFETIL 500 MG TABLET PO SCH ×2 (10:34→21:58)
[2018-01-24] MEDS: LINEZOLID 600 MG TABLET (RESTRICTED TO ID) PO SCH ×2 (10:34→21:59)
[2018-01-24] MEDS: TACROLIMUS ANHYDROUS 1 MG CAPSULE PO SCH ×2 (10:34→21:58)
[2018-01-24] MEDS: TACROLIMUS 0.5 MG CAPSULE PO SCH ×2 (10:35→21:59)
[2018-01-24] MEDS: PANTOPRAZOLE 40 MG TABLET (FP) PO SCH (10:36)
[2018-01-24] MEDS: predniSONE 5 MG TABLET (UD) PO SCH (10:36)
[2018-01-24] MEDS: NIFEdipine E.R. 30 MG TABLET (FP) PO SCH (10:37)
--- NOTE | 2018-01-24 13:58 | PN ---
Progress Note, Physician - Current Medication List Current Medications: Active Medications Acetaminophen (Tylenol -) 650 mg PO Q6H PRN PRN Reason: FEVER Last Admin: 01/21/18 10:10 Dose: 650 mg Albuterol Sulfate (Ventolin Hfa Inhaler -) 2 puff IH Q4H PRN PRN Reason: SHORTNESS OF BREATH Insulin Aspart (Novolog Vial Sliding Scale -) [address] [facility]; Protocol Last Admin: 01/24/18 12:47 Dose: 8 units Insulin Detemir (Levemir Vial) 20 units SQ [facility] Last Admin: 01/23/18 21:47 Dose: 20 units Linezolid (Zyvox (Restricted To Id) -) 600 mg PO BID [facility] Last Admin: 01/24/18 10:34 Dose: 600 mg Mycophenolate Mofetil (Cellcept -) 1,000 mg PO BID [facility] Last Admin: 01/24/18 10:34 Dose: 1,000 mg Nifedipine (Procardia Xl -) 30 mg PO DAILY [facility] Last Admin: 01/24/18 10:37 Dose: 30 mg Pantoprazole Sodium (Protonix -) 40 mg PO DAILY [facility] Last Admin: 01/24/18 10:36 Dose: 40 mg Prednisone (Deltasone -) 5 mg PO DAILY [facility] Last Admin: 01/24/18 10:36 Dose: 5 mg Sitagliptin Phosphate (Januvia -) 50 mg PO ACBK [facility] Last Admin: 01/24/18 06:46 Dose: 50 mg Tacrolimus (Prograf) 2 mg PO BID [facility] Last Admin: 01/24/18 10:34 Dose: 2 mg Tacrolimus (Prograf) 0.5 mg PO BID [facility] Last Admin: 01/24/18 10:35 Dose: 0.5 mg - Objective Vital Signs: Vital Signs Temperature 98.3 F 01/24/18 10:28 Pulse Rate 99 H 01/24/18 10:28 Respiratory Rate 20 01/24/18 10:28 Blood Pressure 123/73 01/24/18 10:28 O2 Sat by Pulse Oximetry (%) 96 01/24/18 11:00 Constitutional: Yes: No Distress HENT: Yes: Atraumatic Cardiovascular: Yes: Regular Rate and Rhythm Respiratory: Yes: CTA Bilaterally Gastrointestinal: Yes: Normal Bowel Sounds, Other (abd wall abcess heaing) Extremities: Yes: WNL Edema: No Peripheral Pulses WNL: Yes Neurological: Yes: Alert, Oriented Labs: CBC, BMP 01/23/18 15:30 01/23/18 15:30 INR, PTT INR 1.01 (0.82-1.09) 01/20/18 15:57 Problem List - Problems (1) Abdominal wall abscess Assessment/Plan: iv abx healing well Code(s): L02.211 - CUTANEOUS ABSCESS OF ABDOMINAL WALL (2) CKD (chronic kidney disease) Code(s): N18.9 - CHRONIC KIDNEY DISEASE, UNSPECIFIED (3) Diabetes Assessment/Plan: on meds bgms, insulin Code(s): E11.9 - TYPE 2 DIABETES MELLITUS WITHOUT COMPLICATIONS Qualifiers: Diabetes mellitus type: type 2 (4) HLD (hyperlipidemia) Code(s): E78.5 - HYPERLIPIDEMIA, UNSPECIFIED Qualifiers: Hyperlipidemia type: unspecified Qualified Code(s): E78.5 - Hyperlipidemia , unspecified (5) HTN (hypertension) Code(s): I10 - ESSENTIAL (PRIMARY) HYPERTENSION Qualifiers: Hypertension type: essential hypertension Qualified Code(s): I10 - Essential (primary) hypertension (6) Transplanted kidney Code(s): Z94.0 - KIDNEY TRANSPLANT STATUS
--- NOTE | 2018-01-24 14:33 | PN ---
Progress Note, Physician History of Present Illness: patient feeling well no issues says he has no more pain - Current Medication List Current Medications: Active Medications Acetaminophen (Tylenol -) 650 mg PO Q6H PRN PRN Reason: FEVER Last Admin: 01/21/18 10:10 Dose: 650 mg Albuterol Sulfate (Ventolin Hfa Inhaler -) 2 puff IH Q4H PRN PRN Reason: SHORTNESS OF BREATH Insulin Aspart (Novolog Vial Sliding Scale -) 1 vial SQ [facility]; Protocol Last Admin: 01/24/18 12:47 Dose: 8 units Insulin Detemir (Levemir Vial) 20 units SQ [facility] Last Admin: 01/23/18 21:47 Dose: 20 units Linezolid (Zyvox (Restricted To Id) -) 600 mg PO BID [facility] Last Admin: 01/24/18 10:34 Dose: 600 mg Mycophenolate Mofetil (Cellcept -) 1,000 mg PO BID [facility] Last Admin: 01/24/18 10:34 Dose: 1,000 mg Nifedipine (Procardia Xl -) 30 mg PO DAILY [facility] Last Admin: 01/24/18 10:37 Dose: 30 mg Pantoprazole Sodium (Protonix -) 40 mg PO DAILY [facility] Last Admin: 01/24/18 10:36 Dose: 40 mg Prednisone (Deltasone -) 5 mg PO DAILY [facility] Last Admin: 01/24/18 10:36 Dose: 5 mg Sitagliptin Phosphate (Januvia -) 50 mg PO ACBK [facility] Last Admin: 01/24/18 06:46 Dose: 50 mg Tacrolimus (Prograf) 2 mg PO BID [facility] Last Admin: 01/24/18 10:34 Dose: 2 mg Tacrolimus (Prograf) 0.5 mg PO BID [facility] Last Admin: 01/24/18 10:35 Dose: 0.5 mg - Objective Vital Signs: Vital Signs Temperature 98.3 F 01/24/18 10:28 Pulse Rate 99 H 01/24/18 10:28 Respiratory Rate 20 01/24/18 10:28 Blood Pressure 123/73 01/24/18 10:28 O2 Sat by Pulse Oximetry (%) 96 01/24/18 11:00 Constitutional: Yes: No Distress, Calm HENT: Yes: Atraumatic Cardiovascular: Yes: Regular Rate and Rhythm Respiratory: Yes: Regular, CTA Bilaterally Gastrointestinal: Yes: Normal Bowel Sounds, Soft Musculoskeletal: Yes: Other Extremities: Yes: Other (left arm wound looks good remy intact) Neurological: Yes: Alert, Oriented Psychiatric: Yes: Alert, Oriented Labs: CBC, BMP 01/23/18 15:30 01/23/18 15:30 INR, PTT INR 1.01 (0.82-1.09) 01/20/18 15:57 Assessment/Plan Problem List - Problems (1) Abdominal wall abscess Code(s): L02.211 - CUTANEOUS ABSCESS OF ABDOMINAL WALL (2) CKD (chronic kidney disease) Code(s): N18.9 - CHRONIC KIDNEY DISEASE, UNSPECIFIED (3) Diabetes Code(s): E11.9 - TYPE 2 DIABETES MELLITUS WITHOUT COMPLICATIONS Qualifiers: Diabetes mellitus type: type 2 (4) HLD (hyperlipidemia) Code(s): E78.5 - HYPERLIPIDEMIA, UNSPECIFIED Qualifiers: Hyperlipidemia type: unspecified Qualified Code(s): E78.5 - Hyperlipidemia , unspecified (5) HTN (hypertension) Code(s): I10 - ESSENTIAL (PRIMARY) HYPERTENSION Qualifiers: Hypertension type: essential hypertension Qualified Code(s): I10 - Essential (primary) hypertension (6) Transplanted kidney Code(s): Z94.0 - KIDNEY TRANSPLANT STATUS plan continue linzeloid wbc trending down if wbc trends down patient could be discharged on zyox for another 9 days a total of 10 days
--- NOTE | 2018-01-24 15:05 | PN ---
Progress Note, Physician History of Present Illness: Pt seen and examined at bedside. He is awake and alert. He denies fevers or chills. - Current Medication List Current Medications: Active Medications Acetaminophen (Tylenol -) 650 mg PO Q6H PRN PRN Reason: FEVER Last Admin: 01/21/18 10:10 Dose: 650 mg Albuterol Sulfate (Ventolin Hfa Inhaler -) 2 puff IH Q4H PRN PRN Reason: SHORTNESS OF BREATH Insulin Aspart (Novolog Vial Sliding Scale -) 1 vial SQ [facility]; Protocol Last Admin: 01/24/18 12:47 Dose: 8 units Insulin Detemir (Levemir Vial) 20 units SQ HS [facility] Last Admin: 01/23/18 21:47 Dose: 20 units Linezolid (Zyvox (Restricted To Id) -) 600 mg PO BID [facility] Last Admin: 01/24/18 10:34 Dose: 600 mg Mycophenolate Mofetil (Cellcept -) 1,000 mg PO BID [facility] Last Admin: 01/24/18 10:34 Dose: 1,000 mg Nifedipine (Procardia Xl -) 30 mg PO DAILY [facility] Last Admin: 01/24/18 10:37 Dose: 30 mg Pantoprazole Sodium (Protonix -) 40 mg PO DAILY [facility] Last Admin: 01/24/18 10:36 Dose: 40 mg Prednisone (Deltasone -) 5 mg PO DAILY [facility] Last Admin: 01/24/18 10:36 Dose: 5 mg Sitagliptin Phosphate (Januvia -) 50 mg PO ACBK [facility] Last Admin: 01/24/18 06:46 Dose: 50 mg Tacrolimus (Prograf) 2 mg PO BID [facility] Last Admin: 01/24/18 10:34 Dose: 2 mg Tacrolimus (Prograf) 0.5 mg PO BID [facility] Last Admin: 01/24/18 10:35 Dose: 0.5 mg - Objective Vital Signs: Vital Signs Temperature 98.3 F 01/24/18 14:58 Pulse Rate 92 H 01/24/18 14:58 Respiratory Rate 20 01/24/18 14:58 Blood Pressure 166/91 01/24/18 14:58 O2 Sat by Pulse Oximetry (%) 96 01/24/18 11:00 Constitutional: Yes: Calm Eyes: Yes: Conjunctiva Clear HENT: Yes: Atraumatic Cardiovascular: Yes: S1, S2 Respiratory: Yes: CTA Bilaterally Gastrointestinal: Yes: Soft, Abdomen, Obese Genitourinary: Yes: WNL, Other (graft soft and non tender) Extremities: Yes: Other (left arm remy in place) Edema: No Wound/Incision: Yes: [place] Intact Neurological: Yes: Oriented Psychiatric: Yes: Oriented Labs: CBC, BMP 01/23/18 15:30 01/23/18 15:30 INR, PTT INR 1.01 (0.82-1.09) 01/20/18 15:57 Problem List - Problems (1) Abdominal wall abscess Code(s): L02.211 - CUTANEOUS ABSCESS OF ABDOMINAL WALL (2) CKD (chronic kidney disease) Code(s): N18.9 - CHRONIC KIDNEY DISEASE, UNSPECIFIED (3) Diabetes Code(s): E11.9 - TYPE 2 DIABETES MELLITUS WITHOUT COMPLICATIONS Qualifiers: Diabetes mellitus type: type 2 (4) HLD (hyperlipidemia) Code(s): E78.5 - HYPERLIPIDEMIA, UNSPECIFIED Qualifiers: Hyperlipidemia type: unspecified Qualified Code(s): E78.5 - Hyperlipidemia , unspecified (5) HTN (hypertension) Code(s): I10 - ESSENTIAL (PRIMARY) HYPERTENSION Qualifiers: Hypertension type: essential hypertension Qualified Code(s): I10 - Essential (primary) hypertension (6) Transplanted kidney Code(s): Z94.0 - KIDNEY TRANSPLANT STATUS Assessment/Plan Current Medications Generic Name Dose Route Start Last Admin Trade Name Freq PRN Reason Stop Dose Admin Acetaminophen 650 mg 01/20/18 22:00 01/21/18 10:10 Tylenol - PO 650 mg Q6H PRN Administration FEVER Albuterol Sulfate 2 puff 01/21/18 10:00 Ventolin Hfa Inhaler - IH Q4H PRN SHORTNESS OF BREATH Insulin Aspart 1 vial 01/20/18 22:00 01/24/18 12:47 Novolog Vial Sliding Scale - SQ 8 units ACHS [facility] Administration Protocol Insulin Detemir 20 units 01/23/18 22:00 01/23/18 21:47 Levemir Vial SQ 20 units HS [facility] Administration Linezolid 600 mg 01/23/18 15:00 01/24/18 10:34 Zyvox (Restricted To Id) - PO 600 mg BID [facility] Administration Mycophenolate Mofetil 1,000 mg 01/21/18 22:00 01/24/18 10:34 Cellcept - PO 1,000 mg BID [facility] Administration Nifedipine 30 mg 01/21/18 10:00 01/24/18 10:37 Procardia Xl - PO 30 mg DAILY [facility] Administration Pantoprazole Sodium 40 mg 01/21/18 10:00 01/24/18 10:36 Protonix - PO 40 mg DAILY [facility] Administration Prednisone 5 mg 01/21/18 10:00 01/24/18 10:36 Deltasone - PO 5 mg DAILY [facility] Administration Sitagliptin Phosphate 50 mg 01/21/18 07:00 01/24/18 06:46 Januvia - PO 50 mg ACBK [facility] Administration Tacrolimus 2 mg 01/21/18 22:00 01/24/18 10:34 Prograf PO 2 mg BID [facility] Administration Tacrolimus 0.5 mg 01/21/18 22:00 01/24/18 10:35 Prograf PO 0.5 mg BID [facility] Administration Impression 1. CKD 2. kidney transplant 3. HTN 4. DM 5. abscess Plan - check labs in am - will give gentle hydration - monitor wbc - surgery follow up - ID follow up - cont to follow cultures - arm remy to be taken out next week - will follow Dr Isaacs
[2018-01-24] MEDS ORDERED: SODIUM CHLORIDE 0.45% 1,000 ML IV SCH (15:15)
--- NOTE | 2018-01-24 17:11 | PN ---
Progress Note, Physician Chief Complaint: Left abdominal wall abscess History of Present Illness: 68 yo male PMH DM type 2, HTN, HLD, s/p renal transplant at [facility] (on dialysis for 6 years) who presents to the emergency department with lower left quadrant pain, redness and swelling for several days. LUE vascular access 01/[address] Washington. He reports feeling weak. Low grade fevers persist. - Current Medication List Current Medications: Active Medications Acetaminophen (Tylenol -) 650 mg PO Q6H PRN PRN Reason: FEVER Last Admin: 01/21/18 10:10 Dose: 650 mg Albuterol Sulfate (Ventolin Hfa Inhaler -) 2 puff IH Q4H PRN PRN Reason: SHORTNESS OF BREATH Sodium Chloride (1/2 Normal Saline) 1,000 mls @ 42 mls/hr IV ASDIR [facility] Stop: 01/25/18 01:14 Last Admin: 01/24/18 17:09 Dose: 42 mls/hr Insulin Aspart (Novolog Vial Sliding Scale -) 1 vial SQ [facility]; Protocol Last Admin: 01/24/18 12:47 Dose: 8 units Insulin Detemir (Levemir Vial) 20 units SQ [facility] Last Admin: 01/23/18 21:47 Dose: 20 units Linezolid (Zyvox (Restricted To Id) -) 600 mg PO BID [facility] Last Admin: 01/24/18 10:34 Dose: 600 mg Mycophenolate Mofetil (Cellcept -) 1,000 mg PO BID [facility] Last Admin: 01/24/18 10:34 Dose: 1,000 mg Nifedipine (Procardia Xl -) 30 mg PO DAILY [facility] Last Admin: 01/24/18 10:37 Dose: 30 mg Pantoprazole Sodium (Protonix -) 40 mg PO DAILY [facility] Last Admin: 01/24/18 10:36 Dose: 40 mg Prednisone (Deltasone -) 5 mg PO DAILY [facility] Last Admin: 01/24/18 10:36 Dose: 5 mg Sitagliptin Phosphate (Januvia -) 50 mg PO ACBK [facility] Last Admin: 01/24/18 06:46 Dose: 50 mg Tacrolimus (Prograf) 2 mg PO BID [facility] Last Admin: 01/24/18 10:34 Dose: 2 mg Tacrolimus (Prograf) 0.5 mg PO BID [facility] Last Admin: 01/24/18 10:35 Dose: 0.5 mg - Objective Vital Signs: Vital Signs Temperature 98.3 F 01/24/18 14:58 Pulse Rate 92 H 01/24/18 14:58 Respiratory Rate 20 01/24/18 14:58 Blood Pressure 166/91 01/24/18 14:58 O2 Sat by Pulse Oximetry (%) 96 01/24/18 11:00 Vital Signs Period Temp Pulse Resp BP Sys/Rouse Pulse Ox Last 24 Hr 98.0 F-98.3 F 92-99 18-20 123-166/73-91 96-98 Constitutional: Yes: Well Nourished, No Distress, Calm Eyes: Yes: Conjunctiva Clear, EOM Intact HENT: Yes: Atraumatic, Normocephalic Neck: Yes: Supple, Trachea Midline Cardiovascular: Yes: Regular Rate and Rhythm, S1, S2 Respiratory: Yes: Regular, CTA Bilaterally Gastrointestinal: Yes: Normal Bowel Sounds, Soft, Tenderness ...Rectal Exam: Yes: Deferred Genitourinary: No: CVA Tenderness - Left, CVA Tenderness - Right Extremities: No: Cool, Cyanosis Edema: No Peripheral Pulses WNL: Yes Peripheral Pulses: Left Doralis Pedis: 2+, Right Dorsalis Pedis: 2+ Wound/Incision: Yes: Clean/Dry, Well Approximated, Dressing Dry and Intact Neurological: Yes: Alert Psychiatric: Yes: Alert, Oriented Labs: CBC, BMP 01/23/18 15:30 01/23/18 15:30 INR, PTT INR 1.01 (0.82-1.09) 01/20/18 15:57 Problem List - Problems (1) Abdominal wall abscess Assessment/Plan: 68yo male MMP with a LLQ abdominal wall abscess PPD#4 s/p I&D of abdominal wall abscess, site is improving, decreased redness and swelling, decreased induration. Presumptive MRSA. Recent LUE proximal vascular access by Dr. Washington this sight may also need to be evaluated. Made a call to transplant service at [facility] to see if there were any additional recommendations. IV antibiotics ID evaluation adequate analgesia Daily dressing change LLQ Wound measurement: 1cm cruciate incision no drainage Dressing instructions: 1/2" iodoform packing, 4X4 gauze, tape will follow Code(s): L02.211 - CUTANEOUS ABSCESS OF ABDOMINAL WALL (2) HTN (hypertension) Code(s): I10 - ESSENTIAL (PRIMARY) HYPERTENSION Qualifiers: Hypertension type: essential hypertension Qualified Code(s): I10 - Essential (primary) hypertension (3) Diabetes Code(s): E11.9 - TYPE 2 DIABETES MELLITUS WITHOUT COMPLICATIONS Qualifiers: Diabetes mellitus type: type 2 (4) Transplanted kidney Code(s): Z94.0 - KIDNEY TRANSPLANT STATUS (5) HLD (hyperlipidemia) Code(s): E78.5 - HYPERLIPIDEMIA, UNSPECIFIED Qualifiers: Hyperlipidemia type: unspecified Qualified Code(s): E78.5 - Hyperlipidemia , unspecified
[2018-01-24] MEDS ORDERED: NIFEdipine E.R. 30 MG TABLET (FP) PO ONE (19:45)
[2018-01-24] MEDS: INSULIN (LEVEMIR) 100 UNITS/ML UNITS SQ SCH (22:00)
[2018-01-25] MEDS: INSULIN SLIDING SCALE (NOVOLOG) 1 VIAL SQ SCH ×4 (06:05→21:57)
--- NOTE | 2018-01-25 06:08 | PN ---
Progress Note, Physician Chief Complaint: Left abdominal wall abscess History of Present Illness: 68 yo male PMH DM type 2, HTN, HLD, s/p renal transplant at [facility] (on dialysis for 6 years) who presents to the emergency department with lower left quadrant pain, redness and swelling for several days. improving clinically. - Current Medication List Current Medications: Active Medications Acetaminophen (Tylenol -) 650 mg PO Q6H PRN PRN Reason: FEVER Last Admin: 01/21/18 10:10 Dose: 650 mg Albuterol Sulfate (Ventolin Hfa Inhaler -) 2 puff IH Q4H PRN PRN Reason: SHORTNESS OF BREATH Insulin Aspart (Novolog Vial Sliding Scale -) 1 vial SQ [facility]; Protocol Last Admin: 01/25/18 06:05 Dose: Not Given Insulin Detemir (Levemir Vial) 20 units SQ [facility] Last Admin: 01/24/18 22:00 Dose: 20 units Linezolid (Zyvox (Restricted To Id) -) 600 mg PO BID [facility] Last Admin: 01/24/18 21:59 Dose: 600 mg Mycophenolate Mofetil (Cellcept -) 1,000 mg PO BID [facility] Last Admin: 01/24/18 21:58 Dose: 1,000 mg Nifedipine (Procardia Xl -) 30 mg PO DAILY [facility] Last Admin: 01/24/18 10:37 Dose: 30 mg Pantoprazole Sodium (Protonix -) 40 mg PO DAILY [facility] Last Admin: 01/24/18 10:36 Dose: 40 mg Prednisone (Deltasone -) 5 mg PO DAILY [facility] Last Admin: 01/24/18 10:36 Dose: 5 mg Sitagliptin Phosphate (Januvia -) 50 mg PO ACBK [facility] Last Admin: 01/24/18 06:46 Dose: 50 mg Tacrolimus (Prograf) 2 mg PO BID [facility] Last Admin: 01/24/18 21:58 Dose: 2 mg Tacrolimus (Prograf) 0.5 mg PO BID [facility] Last Admin: 01/24/18 21:59 Dose: 0.5 mg - Objective Vital Signs: Vital Signs Temperature 98.2 F 01/24/18 18:11 Pulse Rate 86 01/25/18 03:39 Respiratory Rate 18 01/25/18 03:39 Blood Pressure 155/92 01/25/18 03:39 O2 Sat by Pulse Oximetry (%) 96 01/24/18 21:00 Vital Signs Period Temp Pulse Resp BP Sys/Rouse Pulse Ox Last 24 Hr 98.2 F-98.3 F 86-104 16-20 123-167/73-95 96-96 Constitutional: Yes: Well Nourished, No Distress, Calm Eyes: Yes: Conjunctiva Clear, EOM Intact HENT: Yes: Atraumatic, Normocephalic Neck: Yes: Supple, Trachea Midline Cardiovascular: Yes: Regular Rate and Rhythm, S1, S2 Respiratory: Yes: Regular, CTA Bilaterally Gastrointestinal: Yes: Normal Bowel Sounds, Soft. No: Tenderness ...Rectal Exam: Yes: Deferred Genitourinary: No: CVA Tenderness - Left, CVA Tenderness - Right Musculoskeletal: No: Muscle Pain, Muscle Weakness Extremities: No: Cool, Cyanosis Wound/Incision: Yes: Clean/Dry, Well Approximated, Dressing Removed. No: Draining, Reddened Neurological: Yes: Alert, Oriented Psychiatric: Yes: Alert, Oriented Labs: CBC, BMP 01/23/18 15:30 01/23/18 15:30 INR, PTT INR 1.01 (0.82-1.09) 01/20/18 15:57 Microbiology 01/20/18 12:16 Blood - Peripheral Venous Blood Culture - Preliminary NO GROWTH OBTAINED AFTER 96 HOURS, INCUBATION TO CONTINUE FOR 1 DAYS. 01/20/18 12:16 Blood - Peripheral Venous Blood Culture - Preliminary NO GROWTH OBTAINED AFTER 96 HOURS, INCUBATION TO CONTINUE FOR 1 DAYS. 01/20/18 17:30 Abdomen Gram Stain - Final 01/20/18 17:30 Abdomen Wound Culture - Final Mr S Aureus 01/20/18 12:45 Urine - Urine Clean Catch Urine Culture - Final NO GROWTH OBTAINED Problem List - Problems (1) Abdominal wall abscess Assessment/Plan: 68yo male MMP with a LLQ abdominal wall abscess PPD#4 s/p I&D of abdominal wall abscess, site is improving, decreased redness and swelling, decreased induration. cultures final MRSA. Antibiotics per ID adequate analgesia Daily dressing change LLQ Wound measurement: 1cm cruciate incision no drainage Dressing instructions: 1/2" iodoform packing, 4X4 gauze, tape D/C planning with [facility]NS vs family member will follow Code(s): L02.211 - CUTANEOUS ABSCESS OF ABDOMINAL WALL (2) HTN (hypertension) Code(s): I10 - ESSENTIAL (PRIMARY) HYPERTENSION Qualifiers: Hypertension type: essential hypertension Qualified Code(s): I10 - Essential (primary) hypertension (3) Diabetes Code(s): E11.9 - TYPE 2 DIABETES MELLITUS WITHOUT COMPLICATIONS Qualifiers: Diabetes mellitus type: type 2 (4) Transplanted kidney Code(s): Z94.0 - KIDNEY TRANSPLANT STATUS (5) HLD (hyperlipidemia) Code(s): E78.5 - HYPERLIPIDEMIA, UNSPECIFIED Qualifiers: Hyperlipidemia type: unspecified Qualified Code(s): E78.5 - Hyperlipidemia , unspecified
[2018-01-25] MEDS: sitaGLIPtin PHOSPHATE 50 MG TABLET PO SCH (06:53)
[2018-01-25 07:41] LABS: BASO % 0.5 % (0-2.0); EOS % 1.4 % (0-4.5); HEMATOCRIT 39.6 % (35.4-49); MCH 26.9 pg (25.7-33.7); MCHC 32.7 g/dl (32.0-35.9); MEAN CELL VOLUME 82.3 fl (80-96); MEAN PLT VOLUME 9.8 fl (7.5-11.1); MONO % 7.9 % (3.8-10.2); NEUT % 82.2 % (42.8-82.8); PLATELET COUNT 334 K/MM3 (134-434); RBC 4.81 M/mm3 (4.00-5.60); RDW 13.8 % (11.9-15.9)
[2018-01-25 08:04] LABS: ANION GAP 9 (8-16); BLOOD UREA NITROGEN 26 mg/dL (7-18); CALCIUM 8.9 mg/dL (8.5-10.1); CHLORIDE 103 mmol/L (98-107); CO2 25 mmol/L (21-32); CREATININE 1.7 mg/dL (0.7-1.3); GLUCOSE,RANDOM 200 mg/dL (74-106); POTASSIUM 4.1 mmol/L (3.5-5.1); SODIUM 137 mmol/L (136-145)
[2018-01-25] MEDS ORDERED: PT OWN MED DRAWER 7, Y5N ONE ×2 (09:58→21:40)
[2018-01-25] MEDS: NIFEdipine E.R. 30 MG TABLET (FP) PO SCH (10:42)
[2018-01-25] MEDS: PANTOPRAZOLE 40 MG TABLET (FP) PO SCH (10:42)
[2018-01-25] MEDS: MYCOPHENOLATE MOFETIL 500 MG TABLET PO SCH ×2 (10:42→21:56)
[2018-01-25] MEDS: predniSONE 5 MG TABLET (UD) PO SCH (10:42)
[2018-01-25] MEDS: LINEZOLID 600 MG TABLET (RESTRICTED TO ID) PO SCH ×2 (10:43→21:56)
[2018-01-25] MEDS: TACROLIMUS 0.5 MG CAPSULE PO SCH ×2 (10:43→21:56)
[2018-01-25] MEDS: TACROLIMUS ANHYDROUS 1 MG CAPSULE PO SCH ×2 (10:43→21:56)
--- NOTE | 2018-01-25 14:23 | PN ---
Progress Note, Physician History of Present Illness: Pt seen and examined at bedside. He is awake and appears comfortable. He denies fevers or chills. - Current Medication List Current Medications: Active Medications Acetaminophen (Tylenol -) 650 mg PO Q6H PRN PRN Reason: FEVER Last Admin: 01/21/18 10:10 Dose: 650 mg Albuterol Sulfate (Ventolin Hfa Inhaler -) 2 puff IH Q4H PRN PRN Reason: SHORTNESS OF BREATH Insulin Aspart (Novolog Vial Sliding Scale -) 1 vial SQ [facility]; Protocol Last Admin: 01/25/18 11:55 Dose: 10 units Insulin Detemir (Levemir Vial) 20 units SQ HS [facility] Last Admin: 01/24/18 22:00 Dose: 20 units Linezolid (Zyvox (Restricted To Id) -) 600 mg PO BID [facility] Last Admin: 01/25/18 10:43 Dose: 600 mg Mycophenolate Mofetil (Cellcept -) 1,000 mg PO BID [facility] Last Admin: 01/25/18 10:42 Dose: 1,000 mg Nifedipine (Procardia Xl -) 60 mg PO DAILY [facility] Nifedipine (Procardia Xl -) 30 mg PO ONCE ONE Stop: 01/25/18 14:31 Pantoprazole Sodium (Protonix -) 40 mg PO DAILY [facility] Last Admin: 01/25/18 10:42 Dose: 40 mg Prednisone (Deltasone -) 5 mg PO DAILY [facility] Last Admin: 01/25/18 10:42 Dose: 5 mg Sitagliptin Phosphate (Januvia -) 50 mg PO ACBK [facility] Last Admin: 01/25/18 06:53 Dose: 50 mg Tacrolimus (Prograf) 2 mg PO BID [facility] Last Admin: 01/25/18 10:43 Dose: 2 mg Tacrolimus (Prograf) 0.5 mg PO BID [facility] Last Admin: 01/25/18 10:43 Dose: 0.5 mg - Objective Vital Signs: Vital Signs Temperature 98.2 F 01/25/18 14:06 Pulse Rate 102 H 01/25/18 14:06 Respiratory Rate 18 01/25/18 14:06 Blood Pressure 143/72 01/25/18 14:06 O2 Sat by Pulse Oximetry (%) 96 01/24/18 21:00 Constitutional: Yes: Calm Eyes: Yes: Conjunctiva Clear HENT: Yes: Atraumatic Neck: Yes: Supple Cardiovascular: Yes: S1, S2 Respiratory: Yes: CTA Bilaterally Gastrointestinal: Yes: Normal Bowel Sounds, Soft, Other (abd wall wound/abscess) Genitourinary: Yes: Other (graft soft and non tender) Musculoskeletal: Yes: WNL Edema: No Neurological: Yes: Oriented Psychiatric: Yes: Oriented Labs: CBC, BMP 01/25/18 06:15 01/25/18 06:15 INR, PTT INR 1.01 (0.82-1.09) 01/20/18 15:57 Problem List - Problems (1) Abdominal wall abscess Code(s): L02.211 - CUTANEOUS ABSCESS OF ABDOMINAL WALL (2) CKD (chronic kidney disease) Code(s): N18.9 - CHRONIC KIDNEY DISEASE, UNSPECIFIED (3) Diabetes Code(s): E11.9 - TYPE 2 DIABETES MELLITUS WITHOUT COMPLICATIONS Qualifiers: Diabetes mellitus type: type 2 (4) HLD (hyperlipidemia) Code(s): E78.5 - HYPERLIPIDEMIA, UNSPECIFIED Qualifiers: Hyperlipidemia type: unspecified Qualified Code(s): E78.5 - Hyperlipidemia , unspecified (5) HTN (hypertension) Code(s): I10 - ESSENTIAL (PRIMARY) HYPERTENSION Qualifiers: Hypertension type: essential hypertension Qualified Code(s): I10 - Essential (primary) hypertension (6) Transplanted kidney Code(s): Z94.0 - KIDNEY TRANSPLANT STATUS Assessment/Plan Current Medications Generic Name Dose Route Start Last Admin Trade Name Freq PRN Reason Stop Dose Admin Acetaminophen 650 mg 01/20/18 22:00 01/21/18 10:10 Tylenol - PO 650 mg Q6H PRN Administration FEVER Albuterol Sulfate 2 puff 01/21/18 10:00 Ventolin Hfa Inhaler - IH Q4H PRN SHORTNESS OF BREATH Insulin Aspart 1 vial 01/20/18 22:00 01/25/18 11:55 Novolog Vial Sliding Scale - SQ 10 units ACHS [facility] Administration Protocol Insulin Detemir 20 units 01/23/18 22:00 01/24/18 22:00 Levemir Vial SQ 20 units HS [facility] Administration Linezolid 600 mg 01/23/18 15:00 01/25/18 10:43 Zyvox (Restricted To Id) - PO 600 mg BID [facility] Administration Mycophenolate Mofetil 1,000 mg 01/21/18 22:00 01/25/18 10:42 Cellcept - PO 1,000 mg BID [facility] Administration Nifedipine 60 mg 01/25/18 14:19 Procardia Xl - PO DAILY [facility] Nifedipine 30 mg 01/25/18 14:30 Procardia Xl - PO 01/25/18 14:31 ONCE ONE Pantoprazole Sodium 40 mg 01/21/18 10:00 01/25/18 10:42 Protonix - PO 40 mg DAILY [facility] Administration Prednisone 5 mg 01/21/18 10:00 01/25/18 10:42 Deltasone - PO 5 mg DAILY [facility] Administration Sitagliptin Phosphate 50 mg 01/21/18 07:00 01/25/18 06:53 Januvia - PO 50 mg ACBK [facility] Administration Tacrolimus 2 mg 01/21/18 22:00 01/25/18 10:43 Prograf PO 2 mg BID [facility] Administration Tacrolimus 0.5 mg 01/21/18 22:00 01/25/18 10:43 Prograf PO 0.5 mg BID [facility] Administration Impression 1. CKD 2. kidney transplant 3. HTN 4. DM 5. abscess Plan - ordered an extra 30 mg of procardia and increased dose to 60 mg starting tomorrow. He did require a dose last night for HTN - renal function is stable - repeat labs in am - abx per ID - cont prograf, prednisone and cellcept - monitor wbc - surgery follow up - cont to follow cultures - arm remy to be taken out next week - will follow Dr Isaacs
[2018-01-25] MEDS ORDERED: NIFEdipine E.R. 30 MG TABLET (FP) PO ONE (14:30)
[2018-01-25 16:08] LABS: PLATELET ESTIMATE ADEQUATE
--- NOTE | 2018-01-25 17:17 | PN ---
Progress Note, Physician History of Present Illness: Pt seen and examined. Events noted. He is afebrile, stating he feels better. Has minimal Lt abd pain. No specific complaints. at bedside. - Current Medication List Current Medications: Active Medications Acetaminophen (Tylenol -) 650 mg PO Q6H PRN PRN Reason: FEVER Last Admin: 01/21/18 10:10 Dose: 650 mg Albuterol Sulfate (Ventolin Hfa Inhaler -) 2 puff IH Q4H PRN PRN Reason: SHORTNESS OF BREATH Insulin Aspart (Novolog Vial Sliding Scale -) 1 vial SQ [facility]; Protocol Last Admin: 01/25/18 16:55 Dose: 6 units Insulin Detemir (Levemir Vial) 20 units SQ HS [facility] Last Admin: 01/24/18 22:00 Dose: 20 units Linezolid (Zyvox (Restricted To Id) -) 600 mg PO BID [facility] Last Admin: 01/25/18 10:43 Dose: 600 mg Mycophenolate Mofetil (Cellcept -) 1,000 mg PO BID [facility] Last Admin: 01/25/18 10:42 Dose: 1,000 mg Nifedipine (Procardia Xl -) 60 mg PO DAILY [facility] Pantoprazole Sodium (Protonix -) 40 mg PO DAILY [facility] Last Admin: 01/25/18 10:42 Dose: 40 mg Prednisone (Deltasone -) 5 mg PO DAILY [facility] Last Admin: 01/25/18 10:42 Dose: 5 mg Sitagliptin Phosphate (Januvia -) 50 mg PO ACBK [facility] Last Admin: 01/25/18 06:53 Dose: 50 mg Tacrolimus (Prograf) 2 mg PO BID [facility] Last Admin: 01/25/18 10:43 Dose: 2 mg Tacrolimus (Prograf) 0.5 mg PO BID [facility] Last Admin: 01/25/18 10:43 Dose: 0.5 mg - Objective Vital Signs: Vital Signs Temperature 98.2 F 01/25/18 14:06 Pulse Rate 102 H 01/25/18 14:06 Respiratory Rate 18 01/25/18 14:06 Blood Pressure 143/72 01/25/18 14:06 O2 Sat by Pulse Oximetry (%) 98 01/25/18 09:00 Constitutional: Yes: No Distress, Calm Respiratory: Yes: Regular Gastrointestinal: Yes: Normal Bowel Sounds, Soft Wound/Incision: Yes: Dressing Dry and Intact (minimal tenderness at incision site, mild induration) Neurological: Yes: Alert, Oriented Labs: CBC, BMP 01/25/18 06:15 01/25/18 06:15 INR, PTT INR 1.01 (0.82-1.09) 01/20/18 15:57 Microbiology 01/20/18 12:16 Blood - Peripheral Venous Blood Culture - Final NO GROWTH AFTER 5 DAYS INCUBATION 01/20/18 12:16 Blood - Peripheral Venous Blood Culture - Final NO GROWTH AFTER 5 DAYS INCUBATION 01/20/18 17:30 Abdomen Gram Stain - Final 01/20/18 17:30 Abdomen Wound Culture - Final S Aureus 01/20/18 12:45 Urine - Urine Clean Catch Urine Culture - Final NO GROWTH OBTAINED Problem List - Problems (1) Abdominal wall abscess Code(s): L02.211 - CUTANEOUS ABSCESS OF ABDOMINAL WALL (2) CKD (chronic kidney disease) Code(s): N18.9 - CHRONIC KIDNEY DISEASE, UNSPECIFIED (3) Diabetes Code(s): E11.9 - TYPE 2 DIABETES MELLITUS WITHOUT COMPLICATIONS Qualifiers: Diabetes mellitus type: type 2 (4) HLD (hyperlipidemia) Code(s): E78.5 - HYPERLIPIDEMIA, UNSPECIFIED Qualifiers: Hyperlipidemia type: unspecified Qualified Code(s): E78.5 - Hyperlipidemia , unspecified (5) HTN (hypertension) Code(s): I10 - ESSENTIAL (PRIMARY) HYPERTENSION Qualifiers: Hypertension type: essential hypertension Qualified Code(s): I10 - Essential (primary) hypertension (6) Transplanted kidney Code(s): Z94.0 - KIDNEY TRANSPLANT STATUS Assessment/Plan MRSA Abd wall abscess Leukocytosis- resolving - could not tolerate clindamycin - continue linezolid x 8 more days - continue wound care
--- NOTE | 2018-01-25 17:49 | PN ---
Progress Note, Physician - Current Medication List Current Medications: Active Medications Acetaminophen (Tylenol -) 650 mg PO Q6H PRN PRN Reason: FEVER Last Admin: 01/21/18 10:10 Dose: 650 mg Albuterol Sulfate (Ventolin Hfa Inhaler -) 2 puff IH Q4H PRN PRN Reason: SHORTNESS OF BREATH Insulin Aspart (Novolog Vial Sliding Scale -) 1 vial SQ [facility]; Protocol Last Admin: 01/25/18 16:55 Dose: 6 units Insulin Detemir (Levemir Vial) 20 units SQ [facility] Last Admin: 01/24/18 22:00 Dose: 20 units Linezolid (Zyvox (Restricted To Id) -) 600 mg PO BID [facility] Last Admin: 01/25/18 10:43 Dose: 600 mg Mycophenolate Mofetil (Cellcept -) 1,000 mg PO BID [facility] Last Admin: 01/25/18 10:42 Dose: 1,000 mg Nifedipine (Procardia Xl -) 60 mg PO DAILY [facility] Pantoprazole Sodium (Protonix -) 40 mg PO DAILY [facility] Last Admin: 01/25/18 10:42 Dose: 40 mg Prednisone (Deltasone -) 5 mg PO DAILY [facility] Last Admin: 01/25/18 10:42 Dose: 5 mg Sitagliptin Phosphate (Januvia -) 50 mg PO ACBK [facility] Last Admin: 01/25/18 06:53 Dose: 50 mg Tacrolimus (Prograf) 2 mg PO BID [facility] Last Admin: 01/25/18 10:43 Dose: 2 mg Tacrolimus (Prograf) 0.5 mg PO BID [facility] Last Admin: 01/25/18 10:43 Dose: 0.5 mg - Objective Vital Signs: Vital Signs Temperature 98.2 F 01/25/18 14:06 Pulse Rate 102 H 01/25/18 14:06 Respiratory Rate 18 01/25/18 14:06 Blood Pressure 143/72 01/25/18 14:06 O2 Sat by Pulse Oximetry (%) 98 01/25/18 09:00 Constitutional: Yes: No Distress HENT: Yes: Atraumatic Neck: Yes: Supple Cardiovascular: Yes: Regular Rate and Rhythm Respiratory: Yes: CTA Bilaterally Gastrointestinal: Yes: Normal Bowel Sounds, Other (abd wall abcess healing well) Extremities: Yes: WNL Neurological: Yes: Alert, Oriented Labs: CBC, BMP 01/25/18 06:15 01/25/18 06:15 INR, PTT INR 1.01 (0.82-1.09) 01/20/18 15:57 Problem List - Problems (1) Abdominal wall abscess Assessment/Plan: iv abx healing well Code(s): L02.211 - CUTANEOUS ABSCESS OF ABDOMINAL WALL (2) CKD (chronic kidney disease) Code(s): N18.9 - CHRONIC KIDNEY DISEASE, UNSPECIFIED (3) Diabetes Assessment/Plan: on meds bgms, insulin Code(s): E11.9 - TYPE 2 DIABETES MELLITUS WITHOUT COMPLICATIONS Qualifiers: Diabetes mellitus type: type 2 (4) HLD (hyperlipidemia) Code(s): E78.5 - HYPERLIPIDEMIA, UNSPECIFIED Qualifiers: Hyperlipidemia type: unspecified Qualified Code(s): E78.5 - Hyperlipidemia , unspecified (5) HTN (hypertension) Assessment/Plan: on meds stable Code(s): I10 - ESSENTIAL (PRIMARY) HYPERTENSION Qualifiers: Hypertension type: essential hypertension Qualified Code(s): I10 - Essential (primary) hypertension (6) Transplanted kidney Code(s): Z94.0 - KIDNEY TRANSPLANT STATUS
[2018-01-25] MEDS ORDERED: INSULIN (LEVEMIR) 100 UNITS/ML UNITS SQ ONE (21:39)
[2018-01-25] MEDS: INSULIN (LEVEMIR) 100 UNITS/ML UNITS SQ SCH (21:57)
[2018-01-26] MEDS: INSULIN SLIDING SCALE (NOVOLOG) 1 VIAL SQ SCH ×4 (06:33→22:56)
[2018-01-26] MEDS: sitaGLIPtin PHOSPHATE 50 MG TABLET PO SCH (06:33)
[2018-01-26 08:54] LABS: BASO % 0.5 % (0-2.0); EOS % 1.2 % (0-4.5); HEMOGLOBIN 13.2 GM/dL (11.7-16.9); LYMPH % 7.4 % (8-40); MCH 26.5 pg (25.7-33.7); MCHC 32.2 g/dl (32.0-35.9); MEAN CELL VOLUME 82.3 fl (80-96); MEAN PLT VOLUME 8.9 fl (7.5-11.1); MONO % 6.2 % (3.8-10.2); NEUT % 84.7 % (42.8-82.8); PLATELET COUNT 398 K/MM3 (134-434); RBC 4.98 M/mm3 (4.00-5.60); RDW 14.1 % (11.9-15.9); WHITE BLOOD COUNT 15.2 K/mm3 (4.0-10.0)
[2018-01-26 09:14] LABS: ANION GAP 7 (8-16); BLOOD UREA NITROGEN 30 mg/dL (7-18); CHLORIDE 103 mmol/L (98-107); CO2 27 mmol/L (21-32); CREATININE 1.7 mg/dL (0.7-1.3); GLUCOSE,RANDOM 99 mg/dL (74-106); POTASSIUM 4.5 mmol/L (3.5-5.1); SODIUM 137 mmol/L (136-145)
--- NOTE | 2018-01-26 10:05 | PN ---
Progress Note, Physician Chief Complaint: Left abdominal wall abscess History of Present Illness: 68 yo male PMH DM type 2, HTN, HLD, s/p renal transplant at [facility] (on dialysis for 6 years) who presents to the emergency department with lower left quadrant pain, redness and swelling for several days. improving clinically. - Current Medication List Current Medications: Active Medications Acetaminophen (Tylenol -) 650 mg PO Q6H PRN PRN Reason: FEVER Last Admin: 01/21/18 10:10 Dose: 650 mg Albuterol Sulfate (Ventolin Hfa Inhaler -) 2 puff IH Q4H PRN PRN Reason: SHORTNESS OF BREATH Insulin Aspart (Novolog Vial Sliding Scale -) 1 vial SQ [facility]; Protocol Last Admin: 01/26/18 06:33 Dose: Not Given Insulin Detemir (Levemir Vial) 20 units SQ HS [facility] Last Admin: 01/25/18 21:57 Dose: 20 units Linezolid (Zyvox (Restricted To Id) -) 600 mg PO BID [facility] Last Admin: 01/25/18 21:56 Dose: 600 mg Mycophenolate Mofetil (Cellcept -) 1,000 mg PO BID [facility] Last Admin: 01/25/18 21:56 Dose: 1,000 mg Nifedipine (Procardia Xl -) 60 mg PO DAILY [facility] Pantoprazole Sodium (Protonix -) 40 mg PO DAILY [facility] Last Admin: 01/25/18 10:42 Dose: 40 mg Prednisone (Deltasone -) 5 mg PO DAILY [facility] Last Admin: 01/25/18 10:42 Dose: 5 mg Sitagliptin Phosphate (Januvia -) 50 mg PO ACBK [facility] Last Admin: 01/26/18 06:33 Dose: Not Given Tacrolimus (Prograf) 2 mg PO BID [facility] Last Admin: 01/25/18 21:56 Dose: 2 mg Tacrolimus (Prograf) 0.5 mg PO BID [facility] Last Admin: 01/25/18 21:56 Dose: 0.5 mg - Objective Vital Signs: Vital Signs Temperature 98.5 F 01/26/18 06:00 Pulse Rate 86 01/26/18 06:00 Respiratory Rate 17 01/26/18 06:00 Blood Pressure 151/84 01/26/18 06:00 O2 Sat by Pulse Oximetry (%) 98 01/25/18 21:00 Vital Signs Period Temp Pulse Resp BP Sys/Rouse Pulse Ox Last 24 Hr 98.0 F-98.5 F 86-96 17-20 147-162/74-84 98 Constitutional: Yes: Well Nourished, No Distress, Calm Eyes: Yes: Conjunctiva Clear, EOM Intact HENT: Yes: Atraumatic, Normocephalic Neck: Yes: Supple, Trachea Midline Cardiovascular: Yes: Regular Rate and Rhythm, S1, S2 Respiratory: Yes: Regular, CTA Bilaterally Gastrointestinal: Yes: Normal Bowel Sounds, Soft Genitourinary: No: CVA Tenderness - Left, CVA Tenderness - Right Extremities: No: Cool, Cyanosis Edema: No Peripheral Pulses WNL: Yes Wound/Incision: Yes: Clean/Dry, Well Approximated, Dressing Dry and Intact, Unapproximated Neurological: Yes: Alert, Oriented Psychiatric: Yes: Alert, Oriented Labs: CBC, BMP 01/26/18 07:45 01/26/18 07:45 INR, PTT INR 1.01 (0.82-1.09) 01/20/18 15:57 Problem List - Problems (1) Abdominal wall abscess Assessment/Plan: 68yo male MMP with a LLQ abdominal wall abscess PPD#5 s/p I&D of abdominal wall abscess, site is improving, decreased redness and swelling, decreased induration. cultures final MRSA. Antibiotics per ID Daily dressing change LLQ Wound measurement: 1cm cruciate incision no drainage Dressing instructions: 1/2" iodoform packing, 4X4 gauze, tape D/C planning with VNS vs family member will follow Code(s): L02.211 - CUTANEOUS ABSCESS OF ABDOMINAL WALL (2) HTN (hypertension) Code(s): I10 - ESSENTIAL (PRIMARY) HYPERTENSION Qualifiers: Hypertension type: essential hypertension Qualified Code(s): I10 - Essential (primary) hypertension (3) Diabetes Code(s): E11.9 - TYPE 2 DIABETES MELLITUS WITHOUT COMPLICATIONS Qualifiers: Diabetes mellitus type: type 2 (4) Transplanted kidney Code(s): Z94.0 - KIDNEY TRANSPLANT STATUS (5) HLD (hyperlipidemia) Code(s): E78.5 - HYPERLIPIDEMIA, UNSPECIFIED Qualifiers: Hyperlipidemia type: unspecified Qualified Code(s): E78.5 - Hyperlipidemia , unspecified
[2018-01-26] MEDS ORDERED: PT OWN MED DRAWER 7, Y5N ONE (11:01)
[2018-01-26] MEDS: TACROLIMUS ANHYDROUS 1 MG CAPSULE PO SCH ×2 (11:03→22:57)
[2018-01-26] MEDS: MYCOPHENOLATE MOFETIL 500 MG TABLET PO SCH ×2 (11:03→22:58)
[2018-01-26] MEDS: NIFEdipine E.R 60 MG TABLET (UD) PO SCH (11:03)
[2018-01-26] MEDS: predniSONE 5 MG TABLET (UD) PO SCH (11:03)
[2018-01-26] MEDS: PANTOPRAZOLE 40 MG TABLET (FP) PO SCH (11:03)
[2018-01-26] MEDS: LINEZOLID 600 MG TABLET (RESTRICTED TO ID) PO SCH ×2 (11:04→22:57)
[2018-01-26] MEDS: TACROLIMUS 0.5 MG CAPSULE PO SCH ×2 (11:05→22:58)
--- NOTE | 2018-01-26 11:06 | PN ---
Progress Note, Physician History of Present Illness: Pt denies any abd pain, diarrhea. Remains afebrile but wbc increased since yesterday. Has no other complaints. States he feels well. - Current Medication List Current Medications: Active Medications Acetaminophen (Tylenol -) 650 mg PO Q6H PRN PRN Reason: FEVER Last Admin: 01/21/18 10:10 Dose: 650 mg Albuterol Sulfate (Ventolin Hfa Inhaler -) 2 puff IH Q4H PRN PRN Reason: SHORTNESS OF BREATH Insulin Aspart (Novolog Vial Sliding Scale -) 1 vial SQ [facility]; Protocol Last Admin: 01/26/18 06:33 Dose: Not Given Insulin Detemir (Levemir Vial) 20 units SQ HS [facility] Last Admin: 01/25/18 21:57 Dose: 20 units Linezolid (Zyvox (Restricted To Id) -) 600 mg PO BID [facility] Last Admin: 01/25/18 21:56 Dose: 600 mg Mycophenolate Mofetil (Cellcept -) 1,000 mg PO BID [facility] Last Admin: 01/25/18 21:56 Dose: 1,000 mg Nifedipine (Procardia Xl -) 60 mg PO DAILY [facility] Pantoprazole Sodium (Protonix -) 40 mg PO DAILY [facility] Last Admin: 01/25/18 10:42 Dose: 40 mg Prednisone (Deltasone -) 5 mg PO DAILY [facility] Last Admin: 01/25/18 10:42 Dose: 5 mg Sitagliptin Phosphate (Januvia -) 50 mg PO ACBK [facility] Last Admin: 01/26/18 06:33 Dose: Not Given Tacrolimus (Prograf) 2 mg PO BID [facility] Last Admin: 01/25/18 21:56 Dose: 2 mg Tacrolimus (Prograf) 0.5 mg PO BID [facility] Last Admin: 01/25/18 21:56 Dose: 0.5 mg - Objective Vital Signs: Vital Signs Temperature 98.5 F 01/26/18 06:00 Pulse Rate 86 01/26/18 06:00 Respiratory Rate 17 01/26/18 06:00 Blood Pressure 151/84 01/26/18 06:00 O2 Sat by Pulse Oximetry (%) 98 01/25/18 21:00 Constitutional: Yes: No Distress Cardiovascular: Yes: Regular Rate and Rhythm Respiratory: Yes: Regular Gastrointestinal: Yes: Normal Bowel Sounds, Soft Extremities: Yes: WNL Wound/Incision: Yes: Other (Abd wall mild induration but no erythema/warmth/ tenderness, packing in place with mild purulence) Neurological: Yes: Alert Labs: CBC, BMP 01/26/18 07:45 01/26/18 07:45 INR, PTT INR 1.01 (0.82-1.09) 01/20/18 15:57 Problem List - Problems (1) Abdominal wall abscess Code(s): L02.211 - CUTANEOUS ABSCESS OF ABDOMINAL WALL (2) CKD (chronic kidney disease) Code(s): N18.9 - CHRONIC KIDNEY DISEASE, UNSPECIFIED (3) Diabetes Code(s): E11.9 - TYPE 2 DIABETES MELLITUS WITHOUT COMPLICATIONS Qualifiers: Diabetes mellitus type: type 2 (4) HLD (hyperlipidemia) Code(s): E78.5 - HYPERLIPIDEMIA, UNSPECIFIED Qualifiers: Hyperlipidemia type: unspecified Qualified Code(s): E78.5 - Hyperlipidemia , unspecified (5) HTN (hypertension) Code(s): I10 - ESSENTIAL (PRIMARY) HYPERTENSION Qualifiers: Hypertension type: essential hypertension Qualified Code(s): I10 - Essential (primary) hypertension (6) Transplanted kidney Code(s): Z94.0 - KIDNEY TRANSPLANT STATUS Assessment/Plan MRSA Abd wall abscess s/p I+D Leukocytosis- wbc higher than yesterday - continue linezolid for now - repeat cbc tomorrow and continue monitor vitals - if diarrhea noted, send stool for CDT - monitor wbc trend - continue wound care, surgery following
[2018-01-26 12:07] LABS: PLATELET ESTIMATE ADEQUATE
--- NOTE | 2018-01-26 15:44 | PN ---
Progress Note, Physician History of Present Illness: Pt seen and examined at bedside. He is awake and alert. He denies fevers or chills. - Current Medication List Current Medications: Active Medications Acetaminophen (Tylenol -) 650 mg PO Q6H PRN PRN Reason: FEVER Last Admin: 01/21/18 10:10 Dose: 650 mg Albuterol Sulfate (Ventolin Hfa Inhaler -) 2 puff IH Q4H PRN PRN Reason: SHORTNESS OF BREATH Insulin Aspart (Novolog Vial Sliding Scale -) 1 vial SQ [facility]; Protocol Last Admin: 01/26/18 12:08 Dose: 6 units Insulin Detemir (Levemir Vial) 20 units SQ HS [facility] Last Admin: 01/25/18 21:57 Dose: 20 units Linezolid (Zyvox (Restricted To Id) -) 600 mg PO BID [facility] Last Admin: 01/26/18 11:04 Dose: 600 mg Mycophenolate Mofetil (Cellcept -) 1,000 mg PO BID [facility] Last Admin: 01/26/18 11:03 Dose: 1,000 mg Nifedipine (Procardia Xl -) 60 mg PO DAILY [facility] Last Admin: 01/26/18 11:03 Dose: 60 mg Pantoprazole Sodium (Protonix -) 40 mg PO DAILY [facility] Last Admin: 01/26/18 11:03 Dose: 40 mg Prednisone (Deltasone -) 5 mg PO DAILY [facility] Last Admin: 01/26/18 11:03 Dose: 5 mg Sitagliptin Phosphate (Januvia -) 50 mg PO ACBK [facility] Last Admin: 01/26/18 06:33 Dose: Not Given Tacrolimus (Prograf) 2 mg PO BID [facility] Last Admin: 01/26/18 11:03 Dose: 2 mg Tacrolimus (Prograf) 0.5 mg PO BID [facility] Last Admin: 01/26/18 11:05 Dose: 0.5 mg - Objective Vital Signs: Vital Signs Temperature 97.9 F 01/26/18 15:04 Pulse Rate 97 H 01/26/18 15:04 Respiratory Rate 18 01/26/18 15:04 Blood Pressure 141/73 01/26/18 15:04 O2 Sat by Pulse Oximetry (%) 98 01/25/18 21:00 Constitutional: Yes: Calm Eyes: Yes: Conjunctiva Clear HENT: Yes: Atraumatic Neck: Yes: Supple Cardiovascular: Yes: S1, S2 Respiratory: Yes: CTA Bilaterally Gastrointestinal: Yes: Soft Genitourinary: Yes: Other (graft soft and non tender) Musculoskeletal: Yes: WNL Edema: No Wound/Incision: Yes: Dressing Dry and Intact Neurological: Yes: Oriented Psychiatric: Yes: Oriented Labs: CBC, BMP 01/26/18 07:45 01/26/18 07:45 INR, PTT INR 1.01 (0.82-1.09) 01/20/18 15:57 Problem List - Problems (1) Abdominal wall abscess Code(s): L02.211 - CUTANEOUS ABSCESS OF ABDOMINAL WALL (2) CKD (chronic kidney disease) Code(s): N18.9 - CHRONIC KIDNEY DISEASE, UNSPECIFIED (3) Diabetes Code(s): E11.9 - TYPE 2 DIABETES MELLITUS WITHOUT COMPLICATIONS Qualifiers: Diabetes mellitus type: type 2 (4) HLD (hyperlipidemia) Code(s): E78.5 - HYPERLIPIDEMIA, UNSPECIFIED Qualifiers: Hyperlipidemia type: unspecified Qualified Code(s): E78.5 - Hyperlipidemia , unspecified (5) HTN (hypertension) Code(s): I10 - ESSENTIAL (PRIMARY) HYPERTENSION Qualifiers: Hypertension type: essential hypertension Qualified Code(s): I10 - Essential (primary) hypertension (6) Transplanted kidney Code(s): Z94.0 - KIDNEY TRANSPLANT STATUS Assessment/Plan Current Medications Generic Name Dose Route Start Last Admin Trade Name Freq PRN Reason Stop Dose Admin Acetaminophen 650 mg 01/20/18 22:00 01/21/18 10:10 Tylenol - PO 650 mg Q6H PRN Administration FEVER Albuterol Sulfate 2 puff 01/21/18 10:00 Ventolin Hfa Inhaler - IH Q4H PRN SHORTNESS OF BREATH Insulin Aspart 1 vial 01/20/18 22:00 01/26/18 12:08 Novolog Vial Sliding Scale - SQ 6 units ACHS [facility] Administration Protocol Insulin Detemir 20 units 01/23/18 22:00 01/25/18 21:57 Levemir Vial SQ 20 units HS [facility] Administration Linezolid 600 mg 01/23/18 15:00 01/26/18 11:04 Zyvox (Restricted To Id) - PO 600 mg BID [facility] Administration Mycophenolate Mofetil 1,000 mg 01/21/18 22:00 01/26/18 11:03 Cellcept - PO 1,000 mg BID [facility] Administration Nifedipine 60 mg 01/25/18 14:19 01/26/18 11:03 Procardia Xl - PO 60 mg DAILY [facility] Administration Pantoprazole Sodium 40 mg 01/21/18 10:00 01/26/18 11:03 Protonix - PO 40 mg DAILY [facility] Administration Prednisone 5 mg 01/21/18 10:00 01/26/18 11:03 Deltasone - PO 5 mg DAILY [facility] Administration Sitagliptin Phosphate 50 mg 01/21/18 07:00 01/26/18 06:33 Januvia - PO Not Given ACBK [facility] Tacrolimus 2 mg 01/21/18 22:00 01/26/18 11:03 Prograf PO 2 mg BID [facility] Administration Tacrolimus 0.5 mg 01/21/18 22:00 01/26/18 11:05 Prograf PO 0.5 mg BID [facility] Administration Impression 1. CKD 2. kidney transplant 3. HTN 4. DM 5. abscess Plan - monitor bp on procardia 60 mg - renal function stable - abx per ID - monitor wbc - surgery follow up - arm remy to be taken out next week - will follow Dr Isaacs
--- NOTE | 2018-01-26 17:44 | PN ---
Progress Note, Physician History of Present Illness: comfortable - Current Medication List Current Medications: Active Medications Acetaminophen (Tylenol -) 650 mg PO Q6H PRN PRN Reason: FEVER Last Admin: 01/21/18 10:10 Dose: 650 mg Albuterol Sulfate (Ventolin Hfa Inhaler -) 2 puff IH Q4H PRN PRN Reason: SHORTNESS OF BREATH Insulin Aspart (Novolog Vial Sliding Scale -) 1 vial SQ [facility]; Protocol Last Admin: 01/26/18 17:28 Dose: Not Given Insulin Detemir (Levemir Vial) 20 units SQ [facility] Last Admin: 01/25/18 21:57 Dose: 20 units Linezolid (Zyvox (Restricted To Id) -) 600 mg PO BID [facility] Last Admin: 01/26/18 11:04 Dose: 600 mg Mycophenolate Mofetil (Cellcept -) 1,000 mg PO BID [facility] Last Admin: 01/26/18 11:03 Dose: 1,000 mg Nifedipine (Procardia Xl -) 60 mg PO DAILY [facility] Last Admin: 01/26/18 11:03 Dose: 60 mg Pantoprazole Sodium (Protonix -) 40 mg PO DAILY [facility] Last Admin: 01/26/18 11:03 Dose: 40 mg Prednisone (Deltasone -) 5 mg PO DAILY [facility] Last Admin: 01/26/18 11:03 Dose: 5 mg Sitagliptin Phosphate (Januvia -) 50 mg PO ACBK [facility] Last Admin: 01/26/18 06:33 Dose: Not Given Tacrolimus (Prograf) 2 mg PO BID [facility] Last Admin: 01/26/18 11:03 Dose: 2 mg Tacrolimus (Prograf) 0.5 mg PO BID [facility] Last Admin: 01/26/18 11:05 Dose: 0.5 mg - Objective Vital Signs: Vital Signs Temperature 97.9 F 01/26/18 15:04 Pulse Rate 97 H 01/26/18 15:04 Respiratory Rate 18 01/26/18 15:04 Blood Pressure 141/73 01/26/18 15:04 O2 Sat by Pulse Oximetry (%) 98 01/26/18 09:00 Constitutional: Yes: No Distress HENT: Yes: Atraumatic Neck: Yes: Supple Cardiovascular: Yes: Regular Rate and Rhythm Respiratory: Yes: CTA Bilaterally Gastrointestinal: Yes: Normal Bowel Sounds, Other (abd wall abcess well healing) Extremities: Yes: WNL Neurological: Yes: Alert, Oriented Labs: CBC, BMP 01/26/18 07:45 01/26/18 07:45 INR, PTT INR 1.01 (0.82-1.09) 01/20/18 15:57 Problem List - Problems (1) Abdominal wall abscess Assessment/Plan: iv abx healing well Code(s): L02.211 - CUTANEOUS ABSCESS OF ABDOMINAL WALL (2) CKD (chronic kidney disease) Code(s): N18.9 - CHRONIC KIDNEY DISEASE, UNSPECIFIED (3) Diabetes Assessment/Plan: on meds bgms, insulin Code(s): E11.9 - TYPE 2 DIABETES MELLITUS WITHOUT COMPLICATIONS Qualifiers: Diabetes mellitus type: type 2 (4) HLD (hyperlipidemia) Code(s): E78.5 - HYPERLIPIDEMIA, UNSPECIFIED Qualifiers: Hyperlipidemia type: unspecified Qualified Code(s): E78.5 - Hyperlipidemia , unspecified (5) HTN (hypertension) Assessment/Plan: on meds stable Code(s): I10 - ESSENTIAL (PRIMARY) HYPERTENSION Qualifiers: Hypertension type: essential hypertension Qualified Code(s): I10 - Essential (primary) hypertension (6) Transplanted kidney Code(s): Z94.0 - KIDNEY TRANSPLANT STATUS
[2018-01-26] MEDS ORDERED: INSULIN (LEVEMIR) 100 UNITS/ML UNITS SQ ONE (22:19)
[2018-01-26] MEDS: INSULIN (LEVEMIR) 100 UNITS/ML UNITS SQ SCH (22:57)
[2018-01-27] MEDS: INSULIN SLIDING SCALE (NOVOLOG) 1 VIAL SQ SCH ×4 (06:55→22:35)
[2018-01-27] MEDS: sitaGLIPtin PHOSPHATE 50 MG TABLET PO SCH (06:55)
[2018-01-27] MEDS ORDERED: INSULIN (LEVEMIR) 100 UNITS/ML UNITS SQ ONE ×2 (07:22→22:15)
[2018-01-27 07:38] LABS: BASO % 0.3 % (0-2.0); HEMATOCRIT 39.3 % (35.4-49); HEMOGLOBIN 12.8 GM/dL (11.7-16.9); LYMPH % 4.9 % (8-40); MCH 26.8 pg (25.7-33.7); MCHC 32.5 g/dl (32.0-35.9); MEAN CELL VOLUME 82.6 fl (80-96); MEAN PLT VOLUME 9.1 fl (7.5-11.1); MONO % 6.2 % (3.8-10.2); NEUT % 87.6 % (42.8-82.8); PLATELET COUNT 389 K/MM3 (134-434); RBC 4.75 M/mm3 (4.00-5.60); RDW 14.1 % (11.9-15.9)
[2018-01-27 08:04] LABS: ANION GAP 9 (8-16); BLOOD UREA NITROGEN 28 mg/dL (7-18); CHLORIDE 101 mmol/L (98-107); CO2 26 mmol/L (21-32); CREATININE 1.7 mg/dL (0.7-1.3); GLUCOSE,RANDOM 157 mg/dL (74-106); POTASSIUM 4.4 mmol/L (3.5-5.1); SODIUM 136 mmol/L (136-145)
[2018-01-27] MEDS ORDERED: PT OWN MED DRAWER 7, Y5N ONE ×2 (10:19→22:15)
[2018-01-27] MEDS: predniSONE 5 MG TABLET (UD) PO SCH (10:24)
[2018-01-27] MEDS: PANTOPRAZOLE 40 MG TABLET (FP) PO SCH (10:24)
[2018-01-27] MEDS: MYCOPHENOLATE MOFETIL 500 MG TABLET PO SCH ×2 (10:24→22:36)
[2018-01-27] MEDS: NIFEdipine E.R 60 MG TABLET (UD) PO SCH (10:24)
[2018-01-27] MEDS: TACROLIMUS ANHYDROUS 1 MG CAPSULE PO SCH ×2 (10:25→22:36)
[2018-01-27] MEDS: LINEZOLID 600 MG TABLET (RESTRICTED TO ID) PO SCH ×2 (10:25→22:36)
[2018-01-27] MEDS: TACROLIMUS 0.5 MG CAPSULE PO SCH ×2 (10:26→22:36)
--- NOTE | 2018-01-27 11:54 | PN ---
Progress Note, Physician History of Present Illness: patient clinically stable no complaints - Current Medication List Current Medications: Active Medications Acetaminophen (Tylenol -) 650 mg PO Q6H PRN PRN Reason: FEVER Last Admin: 01/21/18 10:10 Dose: 650 mg Albuterol Sulfate (Ventolin Hfa Inhaler -) 2 puff IH Q4H PRN PRN Reason: SHORTNESS OF BREATH Insulin Aspart (Novolog Vial Sliding Scale -) 1 vial SQ [facility]; Protocol Last Admin: 01/27/18 06:55 Dose: Not Given Insulin Detemir (Levemir Vial) 20 units SQ [facility] Last Admin: 01/26/18 22:57 Dose: 20 units Linezolid (Zyvox (Restricted To Id) -) 600 mg PO BID [facility] Last Admin: 01/27/18 10:25 Dose: 600 mg Mycophenolate Mofetil (Cellcept -) 1,000 mg PO BID [facility] Last Admin: 01/27/18 10:24 Dose: 1,000 mg Nifedipine (Procardia Xl -) 60 mg PO DAILY [facility] Last Admin: 01/27/18 10:24 Dose: 60 mg Pantoprazole Sodium (Protonix -) 40 mg PO DAILY [facility] Last Admin: 01/27/18 10:24 Dose: 40 mg Prednisone (Deltasone -) 5 mg PO DAILY [facility] Last Admin: 01/27/18 10:24 Dose: 5 mg Sitagliptin Phosphate (Januvia -) 50 mg PO ACBK [facility] Last Admin: 01/27/18 06:55 Dose: Not Given Tacrolimus (Prograf) 2 mg PO BID [facility] Last Admin: 01/27/18 10:25 Dose: 2 mg Tacrolimus (Prograf) 0.5 mg PO BID [facility] Last Admin: 01/27/18 10:26 Dose: 0.5 mg - Objective Vital Signs: Vital Signs Temperature 98.0 F 01/27/18 10:00 Pulse Rate 89 01/27/18 10:00 Respiratory Rate 18 01/27/18 10:00 Blood Pressure 176/98 01/27/18 10:00 O2 Sat by Pulse Oximetry (%) 98 01/26/18 21:00 Constitutional: Yes: No Distress, Calm Cardiovascular: Yes: Regular Rate and Rhythm Respiratory: Yes: Regular, CTA Bilaterally Gastrointestinal: Yes: Normal Bowel Sounds, Soft Musculoskeletal: Yes: Other Wound/Incision: Yes: Dressing Dry and Intact Neurological: Yes: Alert, Oriented Psychiatric: Yes: Alert, Oriented Labs: CBC, BMP 01/27/18 06:30 01/27/18 06:30 INR, PTT INR 1.01 (0.82-1.09) 01/20/18 15:57 Assessment/Plan Problem List - Problems (1) Abdominal wall abscess Code(s): L02.211 - CUTANEOUS ABSCESS OF ABDOMINAL WALL (2) CKD (chronic kidney disease) Code(s): N18.9 - CHRONIC KIDNEY DISEASE, UNSPECIFIED (3) Diabetes Code(s): E11.9 - TYPE 2 DIABETES MELLITUS WITHOUT COMPLICATIONS Qualifiers: Diabetes mellitus type: type 2 (4) HLD (hyperlipidemia) Code(s): E78.5 - HYPERLIPIDEMIA, UNSPECIFIED Qualifiers: Hyperlipidemia type: unspecified Qualified Code(s): E78.5 - Hyperlipidemia , unspecified (5) HTN (hypertension) Code(s): I10 - ESSENTIAL (PRIMARY) HYPERTENSION Qualifiers: Hypertension type: essential hypertension Qualified Code(s): I10 - Essential (primary) hypertension (6) Transplanted kidney Code(s): Z94.0 - KIDNEY TRANSPLANT STATUS patients wbc has increased though i do not see any signs of infection discussed with surgery will make sure that the wound is ok patient could be having reactive leukocytosis plan should give him another 10 days of [place] 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
[2018-01-27 11:55] LABS: PLATELET ESTIMATE SLT INCREASE
[2018-01-27 14:59] VITALS: BMI 26.4
--- NOTE | 2018-01-27 15:13 | PN ---
Progress Note, Physician History of Present Illness: Pt seen and examined at bedside. He denies fevers or chills. - Current Medication List Current Medications: Active Medications Acetaminophen (Tylenol -) 650 mg PO Q6H PRN PRN Reason: FEVER Last Admin: 01/21/18 10:10 Dose: 650 mg Albuterol Sulfate (Ventolin Hfa Inhaler -) 2 puff IH Q4H PRN PRN Reason: SHORTNESS OF BREATH Insulin Aspart (Novolog Vial Sliding Scale -) [address] [facility]; Protocol Last Admin: 01/27/18 12:11 Dose: 8 units Insulin Detemir (Levemir Vial) 20 units SQ HS [facility] Last Admin: 01/26/18 22:57 Dose: 20 units Linezolid (Zyvox (Restricted To Id) -) 600 mg PO BID [facility] Last Admin: 01/27/18 10:25 Dose: 600 mg Mycophenolate Mofetil (Cellcept -) 1,000 mg PO BID [facility] Last Admin: 01/27/18 10:24 Dose: 1,000 mg Nifedipine (Procardia Xl -) 60 mg PO DAILY [facility] Last Admin: 01/27/18 10:24 Dose: 60 mg Pantoprazole Sodium (Protonix -) 40 mg PO DAILY [facility] Last Admin: 01/27/18 10:24 Dose: 40 mg Prednisone (Deltasone -) 5 mg PO DAILY [facility] Last Admin: 01/27/18 10:24 Dose: 5 mg Sitagliptin Phosphate (Januvia -) 50 mg PO ACBK [facility] Last Admin: 01/27/18 06:55 Dose: Not Given Tacrolimus (Prograf) 2 mg PO BID [facility] Last Admin: 01/27/18 10:25 Dose: 2 mg Tacrolimus (Prograf) 0.5 mg PO BID [facility] Last Admin: 01/27/18 10:26 Dose: 0.5 mg - Objective Vital Signs: Vital Signs Temperature 98.0 F 01/27/18 10:00 Pulse Rate 89 01/27/18 10:00 Respiratory Rate 18 01/27/18 10:00 Blood Pressure 176/98 01/27/18 10:00 O2 Sat by Pulse Oximetry (%) 98 01/26/18 21:00 Constitutional: Yes: Calm Eyes: Yes: Conjunctiva Clear HENT: Yes: Atraumatic Neck: Yes: Supple Cardiovascular: Yes: S1, S2 Respiratory: Yes: CTA Bilaterally Gastrointestinal: Yes: Soft, Other (dressing on wound) Genitourinary: Yes: Other (graft soft and non tender) Musculoskeletal: Yes: WNL Edema: No Neurological: Yes: Oriented Psychiatric: Yes: Oriented Labs: CBC, BMP 01/27/18 06:30 01/27/18 06:30 INR, PTT INR 1.01 (0.82-1.09) 01/20/18 15:57 Problem List - Problems (1) Abdominal wall abscess Code(s): L02.211 - CUTANEOUS ABSCESS OF ABDOMINAL WALL (2) CKD (chronic kidney disease) Code(s): N18.9 - CHRONIC KIDNEY DISEASE, UNSPECIFIED (3) Diabetes Code(s): E11.9 - TYPE 2 DIABETES MELLITUS WITHOUT COMPLICATIONS Qualifiers: Diabetes mellitus type: type 2 (4) HLD (hyperlipidemia) Code(s): E78.5 - HYPERLIPIDEMIA, UNSPECIFIED Qualifiers: Hyperlipidemia type: unspecified Qualified Code(s): E78.5 - Hyperlipidemia , unspecified (5) HTN (hypertension) Code(s): I10 - ESSENTIAL (PRIMARY) HYPERTENSION Qualifiers: Hypertension type: essential hypertension Qualified Code(s): I10 - Essential (primary) hypertension (6) Transplanted kidney Code(s): Z94.0 - KIDNEY TRANSPLANT STATUS Assessment/Plan Current Medications Generic Name Dose Route Start Last Admin Trade Name Freq PRN Reason Stop Dose Admin Acetaminophen 650 mg 01/20/18 22:00 01/21/18 10:10 Tylenol - PO 650 mg Q6H PRN Administration FEVER Albuterol Sulfate 2 puff 01/21/18 10:00 Ventolin Hfa Inhaler - IH Q4H PRN SHORTNESS OF BREATH Insulin Aspart 1 vial 01/20/18 22:00 01/27/18 12:11 Novolog Vial Sliding Scale - SQ 8 units ACHS [facility] Administration Protocol Insulin Detemir 20 units 01/23/18 22:00 01/26/18 22:57 Levemir Vial SQ 20 units HS [facility] Administration Linezolid 600 mg 01/23/18 15:00 01/27/18 10:25 Zyvox (Restricted To Id) - PO 600 mg BID [facility] Administration Mycophenolate Mofetil 1,000 mg 01/21/18 22:00 01/27/18 10:24 Cellcept - PO 1,000 mg BID [facility] Administration Nifedipine 60 mg 01/25/18 14:19 01/27/18 10:24 Procardia Xl - PO 60 mg DAILY [facility] Administration Pantoprazole Sodium 40 mg 01/21/18 10:00 01/27/18 10:24 Protonix - PO 40 mg DAILY [facility] Administration Prednisone 5 mg 01/21/18 10:00 01/27/18 10:24 Deltasone - PO 5 mg DAILY [facility] Administration Sitagliptin Phosphate 50 mg 01/21/18 07:00 01/27/18 06:55 Januvia - PO Not Given ACBK [facility] Tacrolimus 2 mg 01/21/18 22:00 01/27/18 10:25 Prograf PO 2 mg BID [facility] Administration Tacrolimus 0.5 mg 01/21/18 22:00 01/27/18 10:26 Prograf PO 0.5 mg BID [facility] Administration Impression 1. CKD 2. kidney transplant 3. HTN 4. DM 5. abscess Plan - discussed with ID, WBC is rising - surgery follow up - cont transplant meds - cont procardia - repeat bp after am meds - vascular surgery to take out remy - will follow Dr Isaacs
--- NOTE | 2018-01-27 17:36 | PN ---
Progress Note, Physician Chief Complaint: Left abdominal wall abscess History of Present Illness: 68 yo male PMH DM type 2, HTN, HLD, s/p renal transplant at [facility] (on dialysis for 6 years) who presents to the emergency department with lower left quadrant pain, redness and swelling for several days. infection resolved. wound healing - Current Medication List Current Medications: Active Medications Acetaminophen (Tylenol -) 650 mg PO Q6H PRN PRN Reason: FEVER Last Admin: 01/21/18 10:10 Dose: 650 mg Albuterol Sulfate (Ventolin Hfa Inhaler -) 2 puff IH Q4H PRN PRN Reason: SHORTNESS OF BREATH Insulin Aspart (Novolog Vial Sliding Scale -) 1 vial SQ [facility]; Protocol Last Admin: 01/27/18 17:17 Dose: 6 units Insulin Detemir (Levemir Vial) 20 units SQ HS [facility] Last Admin: 01/26/18 22:57 Dose: 20 units Linezolid (Zyvox (Restricted To Id) -) 600 mg PO BID [facility] Last Admin: 01/27/18 10:25 Dose: 600 mg Mycophenolate Mofetil (Cellcept -) 1,000 mg PO BID [facility] Last Admin: 01/27/18 10:24 Dose: 1,000 mg Nifedipine (Procardia Xl -) 60 mg PO DAILY [facility] Last Admin: 01/27/18 10:24 Dose: 60 mg Pantoprazole Sodium (Protonix -) 40 mg PO DAILY [facility] Last Admin: 01/27/18 10:24 Dose: 40 mg Prednisone (Deltasone -) 5 mg PO DAILY [facility] Last Admin: 01/27/18 10:24 Dose: 5 mg Sitagliptin Phosphate (Januvia -) 50 mg PO ACBK [facility] Last Admin: 01/27/18 06:55 Dose: Not Given Tacrolimus (Prograf) 2 mg PO BID [facility] Last Admin: 01/27/18 10:25 Dose: 2 mg Tacrolimus (Prograf) 0.5 mg PO BID [facility] Last Admin: 01/27/18 10:26 Dose: 0.5 mg - Objective Vital Signs: Vital Signs Temperature 97.8 F 01/27/18 14:31 Pulse Rate 105 H 01/27/18 14:31 Respiratory Rate 18 01/27/18 14:31 Blood Pressure 148/73 06/25/18 14:31 O2 Sat by Pulse Oximetry (%) 98 01/26/18 21:00 Vital Signs Period Temp Pulse Resp BP Sys/Rouse Pulse Ox Last 24 Hr 97.8 F-98.2 F 86-105 17-18 148-176/73-98 98 Constitutional: Yes: Well Nourished, No Distress, Calm Eyes: Yes: Conjunctiva Clear, EOM Intact HENT: Yes: Atraumatic, Normocephalic Neck: Yes: Supple, Trachea Midline Cardiovascular: Yes: Regular Rate and Rhythm, S1, S2 Respiratory: Yes: Regular, CTA Bilaterally Gastrointestinal: Yes: Normal Bowel Sounds, Soft. No: Tenderness Genitourinary: No: CVA Tenderness - Left, CVA Tenderness - Right Extremities: No: Cool, Cyanosis Peripheral Pulses WNL: Yes Integumentary: No: Jaundice Neurological: Yes: Alert, Oriented Psychiatric: Yes: Alert, Oriented Labs: CBC, BMP 01/27/18 06:30 01/27/18 06:30 INR, PTT INR 1.01 (0.82-1.09) 01/20/18 15:57 Problem List - Problems (1) Abdominal wall abscess Assessment/Plan: 68yo male MMP with a LLQ abdominal wall abscess PPD#6 s/p I&D of abdominal wall abscess, site is improving, decreased redness and swelling, decreased induration. cultures final MRSA. Antibiotics per ID Daily dressing change LLQ Wound measurement: 1cm cruciate incision no drainage Dressing instructions: 1/2" iodoform packing, 4X4 gauze, tape D/C planning with VNS vs family member Code(s): L02.211 - CUTANEOUS ABSCESS OF ABDOMINAL WALL (2) HTN (hypertension) Code(s): I10 - ESSENTIAL (PRIMARY) HYPERTENSION Qualifiers: Hypertension type: essential hypertension Qualified Code(s): I10 - Essential (primary) hypertension (3) Diabetes Code(s): E11.9 - TYPE 2 DIABETES MELLITUS WITHOUT COMPLICATIONS Qualifiers: Diabetes mellitus type: type 2 (4) Transplanted kidney Code(s): Z94.0 - KIDNEY TRANSPLANT STATUS (5) HLD (hyperlipidemia) Code(s): E78.5 - HYPERLIPIDEMIA, UNSPECIFIED Qualifiers: Hyperlipidemia type: unspecified Qualified Code(s): E78.5 - Hyperlipidemia , unspecified
--- NOTE | 2018-01-27 18:46 | CONSULT ---
Consult - text type - Consultation Consultation Note: 68 year old man with hx ESRD with functioning kidney transplant. 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 He was admitted with an abdominal wall abscess which has been drained. He has no complaints regarding the arm. The incision is clean and dry with a small amount of swelling. Efraín are intact. There is no erythema or fluctuance. Troy removed. Imp: Healing surgical site. No evidence for infection in arm.
--- NOTE | 2018-01-27 22:11 | PN ---
Progress Note, Physician History of Present Illness: comfortable - Current Medication List Current Medications: Active Medications Acetaminophen (Tylenol -) 650 mg PO Q6H PRN PRN Reason: FEVER Last Admin: 01/21/18 10:10 Dose: 650 mg Albuterol Sulfate (Ventolin Hfa Inhaler -) 2 puff IH Q4H PRN PRN Reason: SHORTNESS OF BREATH Insulin Aspart (Novolog Vial Sliding Scale -) 1 vial SQ [facility]; Protocol Last Admin: 01/27/18 17:17 Dose: 6 units Insulin Detemir (Levemir Vial) 20 units SQ [facility] Last Admin: 01/26/18 22:57 Dose: 20 units Linezolid (Zyvox (Restricted To Id) -) 600 mg PO BID [facility] Last Admin: 01/27/18 10:25 Dose: 600 mg Mycophenolate Mofetil (Cellcept -) 1,000 mg PO BID [facility] Last Admin: 01/27/18 10:24 Dose: 1,000 mg Nifedipine (Procardia Xl -) 60 mg PO DAILY [facility] Last Admin: 01/27/18 10:24 Dose: 60 mg Pantoprazole Sodium (Protonix -) 40 mg PO DAILY [facility] Last Admin: 01/27/18 10:24 Dose: 40 mg Prednisone (Deltasone -) 5 mg PO DAILY [facility] Last Admin: 01/27/18 10:24 Dose: 5 mg Sitagliptin Phosphate (Januvia -) 50 mg PO ACBK [facility] Last Admin: 01/27/18 06:55 Dose: Not Given Tacrolimus (Prograf) 2 mg PO BID [facility] Last Admin: 01/27/18 10:25 Dose: 2 mg Tacrolimus (Prograf) 0.5 mg PO BID [facility] Last Admin: 01/27/18 10:26 Dose: 0.5 mg - Objective Vital Signs: Vital Signs Temperature 97.6 F 01/27/18 17:45 Pulse Rate 116 H 01/27/18 17:45 Respiratory Rate 17 01/27/18 17:45 Blood Pressure 142/86 01/27/18 17:45 O2 Sat by Pulse Oximetry (%) 98 01/27/18 09:00 Constitutional: Yes: No Distress HENT: Yes: Atraumatic Neck: Yes: Supple Cardiovascular: Yes: Regular Rate and Rhythm Respiratory: Yes: CTA Bilaterally Gastrointestinal: Yes: Normal Bowel Sounds Extremities: Yes: WNL Edema: No Peripheral Pulses WNL: Yes Neurological: Yes: Alert, Oriented Labs: CBC, BMP 01/27/18 06:30 01/27/18 06:30 INR, PTT INR 1.01 (0.82-1.09) 01/20/18 15:57 Problem List - Problems (1) Abdominal wall abscess Assessment/Plan: on po abx healing well dc planning Code(s): L02.211 - CUTANEOUS ABSCESS OF ABDOMINAL WALL (2) CKD (chronic kidney disease) Assessment/Plan: monoitor labs nephro on board Code(s): N18.9 - CHRONIC KIDNEY DISEASE, UNSPECIFIED (3) Diabetes Assessment/Plan: on meds bgms, insulin Code(s): E11.9 - TYPE 2 DIABETES MELLITUS WITHOUT COMPLICATIONS Qualifiers: Diabetes mellitus type: type 2 (4) HLD (hyperlipidemia) Code(s): E78.5 - HYPERLIPIDEMIA, UNSPECIFIED Qualifiers: Hyperlipidemia type: unspecified Qualified Code(s): E78.5 - Hyperlipidemia , unspecified (5) HTN (hypertension) Assessment/Plan: on meds stable Code(s): I10 - ESSENTIAL (PRIMARY) HYPERTENSION Qualifiers: Hypertension type: essential hypertension Qualified Code(s): I10 - Essential (primary) hypertension (6) Transplanted kidney Code(s): Z94.0 - KIDNEY TRANSPLANT STATUS
[2018-01-27] MEDS ORDERED: INSULIN (LEVEMIR) 100 UNITS/ML UNITS SQ SCH (22:15)
[2018-01-27] MEDS: INSULIN (LEVEMIR) 100 UNITS/ML UNITS SQ SCH (22:46)
[2018-01-28] MEDS ORDERED: NIFEdipine E.R. 90 MG TABLET (FP) PO SCH (00:04)
[2018-01-28] MEDS: INSULIN SLIDING SCALE (NOVOLOG) 1 VIAL SQ SCH ×3 (07:00→17:00)
[2018-01-28] MEDS: sitaGLIPtin PHOSPHATE 50 MG TABLET PO SCH (07:00)
[2018-01-28 07:23] LABS: ANION GAP 5 (8-16); BLOOD UREA NITROGEN 26 mg/dL (7-18); CALCIUM 9.2 mg/dL (8.5-10.1); CHLORIDE 104 mmol/L (98-107); CO2 29 mmol/L (21-32); CREATININE 1.8 mg/dL (0.7-1.3); GLUCOSE,RANDOM 85 mg/dL (74-106); POTASSIUM 4.7 mmol/L (3.5-5.1); SODIUM 138 mmol/L (136-145)
[2018-01-28 07:24] LABS: BASO % 0.5 % (0-2.0); EOS % 1.5 % (0-4.5); HEMATOCRIT 41.2 % (35.4-49); HEMOGLOBIN 13.2 GM/dL (11.7-16.9); LYMPH % 9.9 % (8-40); MCH 26.6 pg (25.7-33.7); MCHC 32.1 g/dl (32.0-35.9); MEAN CELL VOLUME 82.9 fl (80-96); MEAN PLT VOLUME 8.7 fl (7.5-11.1); MONO % 6.5 % (3.8-10.2); NEUT % 81.6 % (42.8-82.8); PLATELET COUNT 436 K/MM3 (134-434); RBC 4.96 M/mm3 (4.00-5.60); RDW 13.8 % (11.9-15.9); WHITE BLOOD COUNT 12.6 K/mm3 (4.0-10.0)
[2018-01-28] MEDS ORDERED: PT OWN MED DRAWER 7, Y5N ONE (09:51)
[2018-01-28] MEDS: predniSONE 5 MG TABLET (UD) PO SCH (10:06)
[2018-01-28] MEDS: PANTOPRAZOLE 40 MG TABLET (FP) PO SCH (10:06)
[2018-01-28] MEDS: TACROLIMUS ANHYDROUS 1 MG CAPSULE PO SCH (10:08)
[2018-01-28] MEDS: MYCOPHENOLATE MOFETIL 500 MG TABLET PO SCH (10:10)
[2018-01-28] MEDS: TACROLIMUS 0.5 MG CAPSULE PO SCH (10:10)
[2018-01-28] MEDS: LINEZOLID 600 MG TABLET (RESTRICTED TO ID) PO SCH (10:11)
--- NOTE | 2018-01-28 10:59 | PN ---
Progress Note, Physician Chief Complaint: Left abdominal wall abscess History of Present Illness: 68 yo male PMH DM type 2, HTN, HLD, s/p renal transplant at [facility] (on dialysis for 6 years) who presents to the emergency department with lower left quadrant pain, redness and swelling for several days. infection resolved. wound healing - Current Medication List Current Medications: Active Medications Acetaminophen (Tylenol -) 650 mg PO Q6H PRN PRN Reason: FEVER Last Admin: 01/21/18 10:10 Dose: 650 mg Albuterol Sulfate (Ventolin Hfa Inhaler -) 2 puff IH Q4H PRN PRN Reason: SHORTNESS OF BREATH Insulin Aspart (Novolog Vial Sliding Scale -) 1 vial SQ [facility]; Protocol Last Admin: 01/28/18 07:00 Dose: Not Given Insulin Detemir (Levemir Vial) 10 units SQ [facility] Last Admin: 01/27/18 22:35 Dose: 10 units Linezolid (Zyvox (Restricted To Id) -) 600 mg PO BID [facility] Last Admin: 01/28/18 10:11 Dose: 600 mg Mycophenolate Mofetil (Cellcept -) 1,000 mg PO BID [facility] Last Admin: 01/28/18 10:10 Dose: 1,000 mg Nifedipine (Procardia Xl -) 90 mg PO DAILY [facility] Last Admin: 01/28/18 10:06 Dose: 90 mg Pantoprazole Sodium (Protonix -) 40 mg PO DAILY [facility] Last Admin: 01/28/18 10:06 Dose: 40 mg Prednisone (Deltasone -) 5 mg PO DAILY [facility] Last Admin: 01/28/18 10:06 Dose: 5 mg Sitagliptin Phosphate (Januvia -) 50 mg PO ACBK [facility] Last Admin: 01/28/18 07:00 Dose: Not Given Tacrolimus (Prograf) 2 mg PO BID [facility] Last Admin: 01/28/18 10:08 Dose: 2 mg Tacrolimus (Prograf) 0.5 mg PO BID [facility] Last Admin: 01/28/18 10:10 Dose: 0.5 mg - Objective Vital Signs: Vital Signs Temperature 98.1 F 01/28/18 10:00 Pulse Rate 96 H 01/28/18 10:00 Respiratory Rate 17 01/28/18 10:00 Blood Pressure 150/72 01/28/18 10:00 O2 Sat by Pulse Oximetry (%) 98 01/27/18 21:00 Vital Signs Period Temp Pulse Resp BP Sys/Rouse Pulse Ox Last 24 Hr 97.6 F-98.2 F 73-116 17-18 142-152/72-93 98 Constitutional: Yes: Well Nourished, No Distress, Calm Eyes: Yes: Conjunctiva Clear, EOM Intact HENT: Yes: Atraumatic, Normocephalic Neck: Yes: Supple, Trachea Midline Cardiovascular: Yes: Regular Rate and Rhythm, S1, S2 Respiratory: Yes: Regular, CTA Bilaterally Gastrointestinal: Yes: Normal Bowel Sounds. No: Tenderness Extremities: Yes: Internal Rotation Peripheral Pulses WNL: No Wound/Incision: Yes: Clean/Dry, Well Approximated, Dressing Dry and Intact Neurological: Yes: Alert, Oriented Psychiatric: Yes: Alert, Oriented Labs: CBC, BMP 01/28/18 06:45 01/28/18 06:45 INR, PTT INR 1.01 (0.82-1.09) 01/20/18 15:57 Problem List - Problems (1) Abdominal wall abscess Assessment/Plan: 68yo male MMP with a LLQ abdominal wall abscess PPD#8 s/p I&D of abdominal wall abscess, site is improving, decreased redness and swelling, decreased induration. cultures final MRSA. Antibiotics per ID Daily dressing change LLQ Wound measurement: 1cm cruciate incision no drainage Dressing instructions: 1/2" iodoform packing, 4X4 gauze, tape D/C planning with VNS vs family member Code(s): L02.211 - CUTANEOUS ABSCESS OF ABDOMINAL WALL (2) HTN (hypertension) Code(s): I10 - ESSENTIAL (PRIMARY) HYPERTENSION Qualifiers: Hypertension type: essential hypertension Qualified Code(s): I10 - Essential (primary) hypertension (3) Diabetes Code(s): E11.9 - TYPE 2 DIABETES MELLITUS WITHOUT COMPLICATIONS Qualifiers: Diabetes mellitus type: type 2 (4) Transplanted kidney Code(s): Z94.0 - KIDNEY TRANSPLANT STATUS (5) HLD (hyperlipidemia) Code(s): E78.5 - HYPERLIPIDEMIA, UNSPECIFIED Qualifiers: Hyperlipidemia type: unspecified Qualified Code(s): E78.5 - Hyperlipidemia , unspecified
[2018-01-28 14:21] VITALS: BP 132/67; PULSE 102; TEMP 98.5
--- NOTE | 2018-01-28 15:15 | PN ---
Progress Note, Physician History of Present Illness: no complaints patient stable wbc has jumped - Current Medication List Current Medications: Active Medications Acetaminophen (Tylenol -) 650 mg PO Q6H PRN PRN Reason: FEVER Last Admin: 01/21/18 10:10 Dose: 650 mg Albuterol Sulfate (Ventolin Hfa Inhaler -) 2 puff IH Q4H PRN PRN Reason: SHORTNESS OF BREATH Insulin Aspart (Novolog Vial Sliding Scale -) 1 vial SQ [facility]; Protocol Last Admin: 01/28/18 12:05 Dose: 6 units Insulin Detemir (Levemir Vial) 10 units SQ [facility] Last Admin: 01/27/18 22:35 Dose: 10 units Linezolid (Zyvox (Restricted To Id) -) 600 mg PO BID [facility] Last Admin: 01/28/18 10:11 Dose: 600 mg Mycophenolate Mofetil (Cellcept -) 1,000 mg PO BID [facility] Last Admin: 01/28/18 10:10 Dose: 1,000 mg Nifedipine (Procardia Xl -) 90 mg PO DAILY [facility] Last Admin: 01/28/18 10:06 Dose: 90 mg Pantoprazole Sodium (Protonix -) 40 mg PO DAILY [facility] Last Admin: 01/28/18 10:06 Dose: 40 mg Prednisone (Deltasone -) 5 mg PO DAILY [facility] Last Admin: 01/28/18 10:06 Dose: 5 mg Sitagliptin Phosphate (Januvia -) 50 mg PO ACBK [facility] Last Admin: 01/28/18 07:00 Dose: Not Given Tacrolimus (Prograf) 2 mg PO BID [facility] Last Admin: 01/28/18 10:08 Dose: 2 mg Tacrolimus (Prograf) 0.5 mg PO BID [facility] Last Admin: 01/28/18 10:10 Dose: 0.5 mg - Objective Vital Signs: Vital Signs Temperature 98.5 F 01/28/18 14:20 Pulse Rate 102 H 01/28/18 14:20 Respiratory Rate 17 01/28/18 14:20 Blood Pressure 132/67 01/28/18 14:20 O2 Sat by Pulse Oximetry (%) 98 01/27/18 21:00 Constitutional: Yes: No Distress, Calm Cardiovascular: Yes: Regular Rate and Rhythm Respiratory: Yes: Regular, CTA Bilaterally Gastrointestinal: Yes: Normal Bowel Sounds, Soft Musculoskeletal: Yes: WNL Extremities: Yes: WNL Neurological: Yes: Alert, Oriented Psychiatric: Yes: Alert, Oriented Labs: CBC, BMP 01/28/18 06:45 01/28/18 06:45 INR, PTT INR 1.01 (0.82-1.09) 01/20/18 15:57 Assessment/Plan Problem List - Problems (1) Abdominal wall abscess Code(s): L02.211 - CUTANEOUS ABSCESS OF ABDOMINAL WALL (2) CKD (chronic kidney disease) Code(s): N18.9 - CHRONIC KIDNEY DISEASE, UNSPECIFIED (3) Diabetes Code(s): E11.9 - TYPE 2 DIABETES MELLITUS WITHOUT COMPLICATIONS Qualifiers: Diabetes mellitus type: type 2 (4) HLD (hyperlipidemia) Code(s): E78.5 - HYPERLIPIDEMIA, UNSPECIFIED Qualifiers: Hyperlipidemia type: unspecified Qualified Code(s): E78.5 - Hyperlipidemia , unspecified (5) HTN (hypertension) Code(s): I10 - ESSENTIAL (PRIMARY) HYPERTENSION Qualifiers: Hypertension type: essential hypertension Qualified Code(s): I10 - Essential (primary) hypertension (6) Transplanted kidney Code(s): Z94.0 - KIDNEY TRANSPLANT STATUS wbc has come near normal plan continue linezoloid patient will need it for 10 days follow with primary rest as per the team
--- NOTE | 2018-01-28 15:20 | PN ---
Progress Note, Physician History of Present Illness: Pt seen and examined at bedside. He is awake and alert. He denies fevers or chills. He is eager to go home. - Current Medication List Current Medications: Active Medications Acetaminophen (Tylenol -) 650 mg PO Q6H PRN PRN Reason: FEVER Last Admin: 01/21/18 10:10 Dose: 650 mg Albuterol Sulfate (Ventolin Hfa Inhaler -) 2 puff IH Q4H PRN PRN Reason: SHORTNESS OF BREATH Insulin Aspart (Novolog Vial Sliding Scale -) 1 vial SQ [facility]; Protocol Last Admin: 01/28/18 12:05 Dose: 6 units Insulin Detemir (Levemir Vial) 10 units SQ HS [facility] Last Admin: 01/27/18 22:35 Dose: 10 units Linezolid (Zyvox (Restricted To Id) -) 600 mg PO BID [facility] Last Admin: 01/28/18 10:11 Dose: 600 mg Mycophenolate Mofetil (Cellcept -) 1,000 mg PO BID [facility] Last Admin: 01/28/18 10:10 Dose: 1,000 mg Nifedipine (Procardia Xl -) 90 mg PO DAILY [facility] Last Admin: 01/28/18 10:06 Dose: 90 mg Pantoprazole Sodium (Protonix -) 40 mg PO DAILY [facility] Last Admin: 01/28/18 10:06 Dose: 40 mg Prednisone (Deltasone -) 5 mg PO DAILY [facility] Last Admin: 01/28/18 10:06 Dose: 5 mg Sitagliptin Phosphate (Januvia -) 50 mg PO ACBK [facility] Last Admin: 01/28/18 07:00 Dose: Not Given Tacrolimus (Prograf) 2 mg PO BID [facility] Last Admin: 01/28/18 10:08 Dose: 2 mg Tacrolimus (Prograf) 0.5 mg PO BID [facility] Last Admin: 01/28/18 10:10 Dose: 0.5 mg - Objective Vital Signs: Vital Signs Temperature 98.5 F 01/28/18 14:20 Pulse Rate 102 H 01/28/18 14:20 Respiratory Rate 17 01/28/18 14:20 Blood Pressure 132/67 01/28/18 14:20 O2 Sat by Pulse Oximetry (%) 98 01/27/18 21:00 Constitutional: Yes: Calm Eyes: Yes: Conjunctiva Clear HENT: Yes: Atraumatic Neck: Yes: Supple Cardiovascular: Yes: S1, S2 Respiratory: Yes: CTA Bilaterally Gastrointestinal: Yes: Soft, Other (dressing in place on abd wound) Genitourinary: Yes: WNL, Other (graft soft and non tender) Edema: No Neurological: Yes: Oriented Psychiatric: Yes: Oriented Labs: CBC, BMP 01/28/18 06:45 01/28/18 06:45 INR, PTT INR 1.01 (0.82-1.09) 01/20/18 15:57 Problem List - Problems (1) Abdominal wall abscess Code(s): L02.211 - CUTANEOUS ABSCESS OF ABDOMINAL WALL (2) CKD (chronic kidney disease) Code(s): N18.9 - CHRONIC KIDNEY DISEASE, UNSPECIFIED (3) Diabetes Code(s): E11.9 - TYPE 2 DIABETES MELLITUS WITHOUT COMPLICATIONS Qualifiers: Diabetes mellitus type: type 2 (4) HLD (hyperlipidemia) Code(s): E78.5 - HYPERLIPIDEMIA, UNSPECIFIED Qualifiers: Hyperlipidemia type: unspecified Qualified Code(s): E78.5 - Hyperlipidemia , unspecified (5) HTN (hypertension) Code(s): I10 - ESSENTIAL (PRIMARY) HYPERTENSION Qualifiers: Hypertension type: essential hypertension Qualified Code(s): I10 - Essential (primary) hypertension (6) Transplanted kidney Code(s): Z94.0 - KIDNEY TRANSPLANT STATUS Assessment/Plan Current Medications Generic Name Dose Route Start Last Admin Trade Name Freq PRN Reason Stop Dose Admin Acetaminophen 650 mg 01/20/18 22:00 01/21/18 10:10 Tylenol - PO 650 mg Q6H PRN Administration FEVER Albuterol Sulfate 2 puff 01/21/18 10:00 Ventolin Hfa Inhaler - IH Q4H PRN SHORTNESS OF BREATH Insulin Aspart 1 vial 01/20/18 22:00 01/28/18 12:05 Novolog Vial Sliding Scale - SQ 6 units [facility] Administration Protocol Insulin Detemir 10 units 01/27/18 22:15 01/27/18 22:35 Levemir Vial SQ 10 units HS [facility] Administration Linezolid 600 mg 01/23/18 15:00 01/28/18 10:11 Zyvox (Restricted To Id) - PO 600 mg BID [facility] Administration Mycophenolate Mofetil 1,000 mg 01/21/18 22:00 01/28/18 10:10 Cellcept - PO 1,000 mg BID [facility] Administration Nifedipine 90 mg 01/28/18 00:04 01/28/18 10:06 Procardia Xl - PO 90 mg DAILY [facility] Administration Pantoprazole Sodium 40 mg 01/21/18 10:00 01/28/18 10:06 Protonix - PO 40 mg DAILY [facility] Administration Prednisone 5 mg 01/21/18 10:00 01/28/18 10:06 Deltasone - PO 5 mg DAILY [facility] Administration Sitagliptin Phosphate 50 mg 01/21/18 07:00 01/28/18 07:00 Januvia - PO Not Given ACBK [facility] Tacrolimus 2 mg 01/21/18 22:00 01/28/18 10:08 Prograf PO 2 mg BID [facility] Administration Tacrolimus 0.5 mg 01/21/18 22:00 01/28/18 10:10 Prograf PO 0.5 mg BID [facility] Administration Impression 1. CKD 2. kidney transplant 3. HTN 4. DM 5. abscess Plan - monitor renal function - wbc is improved - monitor bp on procardia 90 mg - vascular input appreciated - will follow Dr Isaacs
--- NOTE | 2018-01-28 16:29 | DS ---
Physical Examination Vital Signs: Vital Signs Temperature 98.5 F 01/28/18 14:20 Pulse Rate 102 H 01/28/18 14:20 Respiratory Rate 17 01/28/18 14:20 Blood Pressure 132/67 01/28/18 14:20 O2 Sat by Pulse Oximetry (%) 98 01/27/18 21:00 Constitutional: Yes: No Distress HENT: Yes: Atraumatic Neck: Yes: Supple Cardiovascular: Yes: Regular Rate and Rhythm Respiratory: Yes: CTA Bilaterally Gastrointestinal: Yes: Normal Bowel Sounds Extremities: Yes: WNL Neurological: Yes: Alert, Oriented Labs: CBC, BMP 01/28/18 06:45 01/28/18 06:45 Discharge Summary Reason For Visit: ABSCESS OF ABDOMINAL WALL Current Active Problems Abdominal wall abscess (Acute) CKD (chronic kidney disease) (Acute) Diabetes (Acute) HLD (hyperlipidemia) (Acute) HTN (hypertension) (Acute) Transplanted kidney (Acute) Condition: Improved - Instructions Diet, Activity, Other Instructions: Postoperative instructions: You had a incision and drainage of left lower quadrant abdominal wall on 01/20/[address] Uday Escobar of [facility]. Wound Care: Wound measurement: 1cm cruciate incision no drainage Dressing instructions: 1/2" iodoform packing, 4X4 gauze, tape Activity: Resume your usual activities gradually, but no heavy exertion or lifting more than 10-15 pounds for 4-6 weeks. Eat lightly at first, but advance to your usual diet as tolerated. Pain: For pain, you may use and alternate Tylenol (acetaminophen) and/or ibuprofen every 6 hours each as needed; this means that you can take one OR the other at 3-hour intervals. If you are prescribed a Tylenol/narcotic combination for severe pain, use it instead of plain Tylenol as needed and switch back when your pain starts decreasing. Do not take more than 4000mg of acetaminophen in a day. Take medications as prescribed or indicated on the labeling. Follow-up: Call Dr. Escobar' office at [phone] to make your postop appointment (Saturday 1-2 weeks after surgery as advised). Clinic is held in the [facility] on the first floor of [facility]. Call the office if you have: * increasing pain not responsive to pain medication * fever of 101F or higher * unusual or increasing bleeding or drainage from wounds * increasing redness or swelling at wound sites Also, see your primary medical doctor within 1-2 weeks. see your kidney doctor in 2-3 days Referrals: Chirag Shah MD [Primary Care Provider] - Disposition: HOME - Home Medications Comprehensive Discharge Medication List: Ambulatory Orders Acetaminophen W/ Codeine #3 [Tylenol # 3 -] 1 tab PO Q4H PRN #15 tablet MDD 6 Albuterol Sulfate [Proair Hfa] 8.5 gm IH DAILY 01/15/18 Insulin Detemir [Levemir Flextouch] 100 unit SQ DAILY 01/15/18 Insulin Lispro [Humalog Kwikpen U-100] 100 unit SQ DAILY 01/15/18 Mycophenolate Mofetil [Cellcept -] 500 mg PO BID 01/15/18 Nifedipine [Procardia Xl] 30 mg PO DAILY 01/15/18 Pantoprazole Sodium [Protonix] 40 mg PO DAILY 01/15/18 Prednisolone [Millipred] 5 mg PO DAILY 01/15/18 Sitagliptin Phosphate [Januvia] 50 mg PO DAILY 01/15/18 Tacrolimus [Astagraf Xl] 0.5 mg PO BID 01/15/18 Tacrolimus [Prograf] 1 mg PO BID 01/15/18 Linezolid [Zyvox (Restricted To Id) -] 600 mg PO BID #20 tablet 01/27/18 dc home
--- NOTE | 2018-01-28 17:00 | PN ---
Progress Note, Physician History of Present Illness: no complaints patient stable - Objective Vital Signs: Vital Signs Temperature 98.5 F 01/28/18 14:20 Pulse Rate 102 H 01/28/18 14:20 Respiratory Rate 17 01/28/18 14:20 Blood Pressure 132/67 01/28/18 14:20 O2 Sat by Pulse Oximetry (%) 98 01/27/18 21:00 Constitutional: Yes: No Distress, Calm Cardiovascular: Yes: Regular Rate and Rhythm Respiratory: Yes: Regular, CTA Bilaterally Gastrointestinal: Yes: Normal Bowel Sounds, Soft Musculoskeletal: Yes: WNL Extremities: Yes: WNL Wound/Incision: Yes: Clean/Dry Neurological: Yes: Alert, Oriented Psychiatric: Yes: Alert, Oriented Labs: CBC, BMP 01/28/18 06:45 01/28/18 06:45 INR, PTT INR 1.01 (0.82-1.09) 01/20/18 15:57 Assessment/Plan Problem List - Problems (1) Abdominal wall abscess Code(s): L02.211 - CUTANEOUS ABSCESS OF ABDOMINAL WALL (2) CKD (chronic kidney disease) Code(s): N18.9 - CHRONIC KIDNEY DISEASE, UNSPECIFIED (3) Diabetes Code(s): E11.9 - TYPE 2 DIABETES MELLITUS WITHOUT COMPLICATIONS Qualifiers: Diabetes mellitus type: type 2 (4) HLD (hyperlipidemia) Code(s): E78.5 - HYPERLIPIDEMIA, UNSPECIFIED Qualifiers: Hyperlipidemia type: unspecified Qualified Code(s): E78.5 - Hyperlipidemia , unspecified (5) HTN (hypertension) Code(s): I10 - ESSENTIAL (PRIMARY) HYPERTENSION Qualifiers: Hypertension type: essential hypertension Qualified Code(s): I10 - Essential (primary) hypertension (6) Transplanted kidney Code(s): Z94.0 - KIDNEY TRANSPLANT STATUS wbc has come near normal plan should give him another 10 days of linezoloid 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
== END 2018-01-28 16:52 | disposition home or self-care (01) | DRG 603 ==
LOC: JER 10:09 → JERBED 15:12 → J5S 01-22 02:41
PROVIDERS: ADMIT Internal Medicine; ATTEND Internal Medicine
PROC: 0H97XZX Drainage of Abdomen Skin, External Approach, Diagnostic (ICD-10-PCS; principal; 2018-01-20)
DX: L02.211 Cutaneous abscess of abdominal wall (principal); Z94.0 Kidney transplant status; I10 Essential (primary) hypertension; E78.5 Hyperlipidemia, unspecified; A49.02 Methicillin resistant Staphylococcus aureus infection, unspecified site; I12.9 Hypertensive chronic kidney disease with stage 1 through stage 4 chronic kidney disease, or unspecified chronic kidney disease; E11.22 Type 2 diabetes mellitus with diabetic chronic kidney disease; N18.9 Chronic kidney disease, unspecified
CPT/HCPCS: 36415; 71045-TC-FY; 74176-TC; 80048; 80053; 80197; 81003; 81015; 82436; 82570; 82803; 82962; 83605; 84133; 84300; 84484; 85025; 85027; 85610; 85730; 86850; 86900; 86901; 87040; 87070; 87086; 87186; 87205; 93005; 93010; 99285-25; J0131; J7030; J7517

== ENCOUNTER 2018-02-15 11:51 | Emergency (ER) | payer OTHER ==
[2018-02-15 12:24] VITALS: BP 118/50; PULSE 109; TEMP 97.9; BMI 26.6
--- NOTE | 2018-02-15 12:57 | PDOC ---
History of Present Illness - General Chief Complaint: Revisit,Wound Recheck Stated Complaint: WOUND CHECK Time Seen by Provider: 02/15/18 12:32 History Source: Patient, Spouse Exam Limitations: Clinical Condition - History of Present Illness Initial Comments: 02/15/18 12:52 Patient present for wound check to lower abdomen s/p being seen 2 weeks ago with abscess to LLQ with sepsis and admitted into inpt for treatment of sepsis. Patient report still having pus drainage from I&D site of abscess with hardening of the abdominal wall around the wound area. Denies fever, chills, pain to area Timing/Duration: other (2 weeks) Severity: mild Associated Symptoms: denies: chest pain, fever/chills, headaches, loss of appetite, nausea/vomiting, shortness of breath, weakness Aspirin Received prior to arrival: Yes: no aspirin today Past History - Past Medical History Allergies/Adverse Reactions: Allergies Allergy/AdvReac Type Severity Reaction Status Date / Time No Known Allergies Allergy Verified 02/15/18 12:24 Home Medications: Ambulatory Orders Albuterol Sulfate [Proair Hfa] 8.5 gm IH DAILY 01/15/18 Insulin Detemir [Levemir Flextouch] 100 unit SQ DAILY 01/15/18 Insulin Lispro [Humalog Kwikpen U-100] 100 unit SQ DAILY 01/15/18 Mycophenolate Mofetil [Cellcept -] 500 mg PO BID 01/15/18 Nifedipine [Procardia Xl] 30 mg PO DAILY 01/15/18 Pantoprazole Sodium [Protonix] 40 mg PO DAILY 01/15/18 Sitagliptin Phosphate [Januvia] 50 mg PO DAILY 01/15/18 Tacrolimus [Astagraf Xl] 0.5 mg PO BID 01/15/18 Tacrolimus [Prograf] 1 mg PO BID 01/15/18 Clindamycin [Cleocin -] 300 mg PO TID #21 capsule 02/15/18 Mupirocin Ointment [Bactroban 2% Ointment -] 1 applic TP BID #1 tube 02/15/18 Anemia: No Asthma: No Cancer: No Cardiac Disorders: No CVA: No COPD: No CHF: No Dementia: No Diabetes: Yes GI Disorders: Yes Disorders: No HTN: Yes Hypercholesterolemia: No Liver Disease: No Seizures: No Thyroid Disease: No - Surgical History Abdominal Surgery: Yes Appendectomy: No Cardiac Surgery: No Cholecystectomy: No Lung Surgery: No Neurologic Surgery: No Orthopedic Surgery: Yes (FOOT SX) - Suicide/Smoking/Psychosocial Hx Smoking History: Never smoked Hx Alcohol Use: No Drug/Substance Use Hx: No Substance Use Type: None Review of Systems - Review of Systems Able to Perform ROS?: Yes Is the patient limited Irish proficient: No Constitutional: No: Chills, Diaphoresis, Fever, Loss of Appetite, Malaise, Night Sweats, Weakness, Weight Stable, Unintentional Wgt. Loss, Unexplained wgt Loss, Other HEENTM: No: Eye Pain, Blurred Vision, Tearing, Recent change in vision, Double Vision, Cataracts, Ear Pain, Ocular Prothesis, Ear Discharge, Nose Pain, Nose Congestion, Tinnitus, Nose Bleeding, Hearing Loss, Throat Pain, Throat Swelling , Mouth Pain, Dental Problems, Difficulty Swallowing, Mouth Swelling, Other Respiratory: No: Symptoms reported, Cough, Orthopnea, Shortness of Breath, SOB with Exertion, SOB at Rest, Stridor, Wheezing, Productive cough, Hemoptysis, Other Cardiac (ROS): No: Chest Pain, Edema, Irregular Heart Rate, Lightheadedness, Palpitations, Syncope, Chest Tightness, Other ABD/GI: Yes: See HPI, Other (pus drainage from abscess to abdominal wall of LLQ area). No: Abdominal Distended, Abd. Pain w/ defecation, Blood Streaked Bowels , Constipated, Diarrhea, Difficulty Swallowing, Nausea, Poor Appetite, Poor Fluid Intake, Rectal Bleeding, Vomiting, Indigestion, Abdominal cramping, Tarry Stools Musculoskeletal: No: Muscle Pain, Muscle Weakness Integumentary: Yes: Other (pus drainage and abscess to abdominal wall of LLQ) All Other Systems: Reviewed and Negative *Physical Exam - Vital Signs Last Vital Signs Temp Pulse Resp BP Pulse Ox 97.9 F 109 H 20 118/50 100 02/15/18 12:21 02/15/18 12:21 02/15/18 12:21 02/15/18 12:21 02/15/18 12:21 - Physical Exam General Appearance: Yes: Nourished, Appropriately Dressed. No: Apparent Distress HEENT: positive: Normal ENT Inspection, Pharynx Normal Neck: positive: Trachea midline, Supple Respiratory/Chest: positive: Lungs Clear, Normal Breath Sounds. negative: Respiratory Distress, Accessory Muscle Use Cardiovascular: positive: Regular Rhythm, Regular Rate, S1, S2 Gastrointestinal/Abdominal: positive: Normal Bowel Sounds, Flat, Soft, Other ( small area of 1mm wound dehiscence over area of I&D to LLQ abdominal wall with 3cm hard induration to area with small amount of purulent discharge from wound. no skin erythema ). negative: Organomegaly Musculoskeletal: positive: Normal Inspection Extremity: positive: Normal Inspection Integumentary: positive: Other (small area of 1mm dehiscence to area of I&D of abdominal wall of LLQ. no erythema to skin area) Neurologic: positive: Fully Oriented, Normal Mood/Affect, Normal Response Medical Decision Making - Medical Decision Making 02/15/18 12:55 Patient with multiple comorbidities presenting for wound check s/p I&D of abscess to stomach wall and tx inpt for sepsis with persistent drainage and dehiscence to wound site. no evidence of sepsis. wound culture sent. stable for home tx with clinda abx and topical bactroban with wound reassessment by PCP in 5 days *DC/Admit/Observation/Transfer Diagnosis at time of Disposition: Abdominal wall abscess - Discharge Dispostion Disposition: HOME Condition at time of disposition: Good Decision to Admit order: No - Prescriptions Prescriptions: Clindamycin [Cleocin -] 300 mg PO TID #21 capsule Mupirocin Ointment [Bactroban 2% Ointment -] 1 applic TP BID #1 tube - Referrals Referrals: Chirag Shah MD [Primary Care Provider] - - Patient Instructions Printed Discharge Instructions: How to Care for a Surgical Wound Additional Instructions: clean wound twice/ day and applied prescribed cream. Take Antibiotics as prescribed. apply heat to wound area three times/ day for 5-10mins.Follow-up with PCP or ED in 5 days for wound check - Post Discharge Activity
== END 2018-02-15 13:05 | disposition home or self-care (01) ==
LOC: JERFT 11:51
DX: Z48.817 Encounter for surgical aftercare following surgery on the skin and subcutaneous tissue (principal); L02.211 Cutaneous abscess of abdominal wall; B96.89 Other specified bacterial agents as the cause of diseases classified elsewhere
CPT/HCPCS: 87070; 87186; 87205; 99281-25

== ENCOUNTER 2019-08-14 04:43 | Day surgery (SDC) | payer OTHER ==
[2019-08-11 08:33] VITALS: BMI 26.9
[2019-08-14] MEDS ORDERED: LIDOCAINE HCL 1%, 10 MG/ML (20ML VIAL) ONE (07:46)
[2019-08-14] MEDS ORDERED: TRIAMCINOLONE ACET 40MG/1ML VIAL ONE (07:46)
[2019-08-14] MEDS ORDERED: BETAMET ACET/BETAMET NA PH 30 MG/5 ML VIAL ONE (07:47)
[2019-08-14] MEDS ORDERED: PROPOFOL 20 ML ONE ×2 (07:47)
[2019-08-14] MEDS ORDERED: MIDAZOLAM HCL 2 MG/2 ML SINGLE DOSE VIAL ONE (07:47)
--- NOTE | 2019-08-14 08:03 | OP ---
Operative Note - Note: Operative Date: 08/14/19 Pre-Operative Diagnosis: BPH w LUTS Operation: urolift x 4 Findings: BPH Post-Operative Diagnosis: Same as Pre-op Surgeon: Ángel Galeas Anesthesiologist/TECHNICAL REP: Kimi Lundberg Anesthesia: General Drains & Tubes with Location: 18 fr anguiano
[2019-08-14] MEDS ORDERED: ceFAZolin SODIUM 1 GM VIAL IVPB ONE (08:10)
[2019-08-14] MEDS ORDERED: ONDANSETRON 4 MG/2 ML VIAL IVPUSH PRN (09:48)
[2019-08-14] MEDS ORDERED: oxyCODONE HCL 5 MG TABLET PO PRN (09:48)
[2019-08-14] MEDS ORDERED: LACTATED RINGERS SOLUTION 1,000 ML IV SCH (10:00)
[2019-08-14] MEDS ORDERED: oxyCODONE HCL 5 MG TABLET PO ONE (11:25)
--- NOTE | 2019-08-14 11:48 | OP ---
DATE OF OPERATION: 08/14/2019 PROCEDURE: Patient was brought into the operating room, placed on the operating table in supine position. After administration of general anesthesia via laryngeal mask, intravenous antibiotics were administered. Sequential compression devices were placed. Patient was placed in dorsal lithotomy position. The perineum and genitals were prepped and draped in the usual sterile manner. The UroLift cystoscope was inserted into the anterior urethra under direct vision. The anterior urethra was normal. The prostatic urethra demonstrated a 4.5-cm prostatic urethra with moderate bilobar occlusion. The bladder entered and thoroughly inspected. There was no foreign bodies, tumors, stones, inflammation. Both ureteral orifices were in their usual locations. 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 Now the UroLift implant No. 1 was inserted at the level of the verumontanum on the left side at the 2 o'clock position. A 2nd one was placed in the mid gland also 2 o'clock position. A 3rd one was placed at the level of the verumontanum on the right side at the 10 o'clock position. The 4th one was placed mid gland on the right side 10 o'clock position. Hemostasis was adequate. The bladder was left full, instruments removed, and 18-Spanish Silva catheter was placed on gravity drainage, 10 mL was placed in the balloon. He tolerated the procedure well. Transferred to recovery room in stable condition. STEVEN MILLS M.D. [id number]
[2019-08-14 14:18] VITALS: BP 141/79; PULSE 98; TEMP 97.9
== END 2019-08-14 12:40 | disposition home or self-care (01) ==
LOC: JASU-SURG 04:43
PROVIDERS: ATTEND Urology
PROC: 0T7D8DZ Dilation of Urethra with Intraluminal Device, Via Natural or Artificial Opening Endoscopic (ICD-10-PCS; principal; 2019-08-14 08:00)
DX: N40.1 Benign prostatic hyperplasia with lower urinary tract symptoms (principal); R35.0 Frequency of micturition; R33.8 Other retention of urine; I10 Essential (primary) hypertension; E11.9 Type 2 diabetes mellitus without complications
CPT/HCPCS: 52441; 52442; C9740; L8699; 82962; 94760

== ENCOUNTER 2022-02-02 14:30 | Inpatient (IN) | payer OTHER ==
[2022-02-02] MEDS ORDERED: CEFEPIME HCL/D5W 2 GM/50 ML BAG IVPB ONE (15:50)
[2022-02-02] MEDS ORDERED: VANCOMYCIN 1 GM in D5W (PRE-DOCKED) 1,000 MG/250 ML IVPB ONE (15:50)
[2022-02-02] MEDS ORDERED: VANCOMYCIN 1 GRAM (PRE-DOCKED) 1,000 MG/250 ML BAG IVPB ONE (16:08)
[2022-02-02] MEDS ORDERED: CEFEPIME 2 GM/100 ML BAG IVPB ONE (16:09)
[2022-02-02 16:18] LABS: BASO % 0.4 % (0-2.0); HEMATOCRIT 51.7 % (35.4-49); HEMOGLOBIN 16.7 GM/dL (11.7-16.9); MCHC 32.4 g/dl (32.0-35.9); MEAN CELL VOLUME 83.5 fl (80-96); MEAN PLT VOLUME 8.3 fl (7.5-11.1); MONO % 6.4 % (3.8-10.2); NEUT % 91.2 % (42.8-82.8); PLATELET COUNT 244 10^3/uL (134-434); RDW 14.5 % (11.9-15.9)
[2022-02-02 16:35] LABS: CALCIUM 9.4 mg/dL (8.5-10.1)
[2022-02-02 16:36] LABS: ALBUMIN 3.2 g/dl (3.4-5.0); BLOOD UREA NITROGEN 30.1 mg/dL (7-18)
[2022-02-02 16:40] LABS: BILIRUBIN,TOTAL 1.3 mg/dL (0.2-1)
[2022-02-02] MEDS ORDERED: SODIUM CHLORIDE 0.9% 500 ML INFUS.BAG IV ONE (16:46)
[2022-02-02 17:01] LABS: ERYTHROCYTE SEDIMENTATION RATE 5 mm/hr (0-20)
[2022-02-02] MEDS ORDERED: SODIUM CHLORIDE 500 ML IV STA (18:32)
[2022-02-02] MEDS ORDERED: CLINDAMYCIN 600MG PREMIX IVPB 600 MG/50 ML BAG IVPB ONE (18:46)
[2022-02-02] MEDS: CLINDAMYCIN 600MG PREMIX IVPB 600 MG/50 ML BAG IVPB SCH (18:51)
[2022-02-02 19:38] LABS: EPI CELLS 1 /uL (0-25.1); HYALINE CASTS 0 /uL (0-3.1); PH,URINE 5.5 (5.0-8.0); URINE APPEARANCE CLEAR; URINE BACTERIA 0 /uL (0-1359); URINE BILIRUBIN NEGATIVE (NEGATIVE); URINE COLOR YELLOW; URINE GLUCOSE (UA) 3+ (NEGATIVE); URINE KETONE TRACE (NEGATIVE); URINE LEUK ESTERASE NEGATIVE (NEGATIVE); URINE NITRITE NEGATIVE (NEGATIVE); URINE PROTEIN 1+ (NEGATIVE); URINE RBC 10 /uL (0-23.9); URINE UROBILINOGEN 0.2 mg/dL (0.2-1.0); URINE WBC 2 /uL (0-25.8)
[2022-02-02] MEDS: SODIUM CHLORIDE 1,000 ML IV SCH (19:47)
[2022-02-02 19:57] LABS: ALBUMIN 2.9 g/dl (3.4-5.0); BLOOD UREA NITROGEN 26.7 mg/dL (7-18); CALCIUM 8.9 mg/dL (8.5-10.1)
[2022-02-02 20:00] LABS: CREATININE 1.8 mg/dL (0.55-1.3)
[2022-02-02 20:02] LABS: BILIRUBIN,TOTAL 1.8 mg/dL (0.2-1); TOT PROT 6.4 g/dl (6.4-8.2)
[2022-02-02] MEDS: HEPARIN NA (PORCINE) 5,000 UNITS/ML 1ML VIAL SQ SCH (22:46)
[2022-02-02] MEDS: INSULIN SLIDING SCALE (NOVOLOG) 1 VIAL SQ SCH (23:00)
[2022-02-03] MEDS: CLINDAMYCIN 600MG PREMIX IVPB 600 MG/50 ML BAG IVPB SCH ×2 (04:00→09:42)
[2022-02-03] MEDS: TACROLIMUS ANHYDROUS 1 MG CAPSULE PO SCH ×4 (05:44→22:55)
[2022-02-03] MEDS ORDERED: CLINDAMYCIN 600MG PREMIX IVPB 600 MG/50 ML BAG IVPB ONE ×2 (05:47→09:21)
[2022-02-03] MEDS ORDERED: ACETAMINOPHEN 1000 MG/100 ML BAG IVPB ONE (05:59)
[2022-02-03] MEDS: HEPARIN NA (PORCINE) 5,000 UNITS/ML 1ML VIAL SQ SCH ×3 (06:18→22:27)
[2022-02-03] MEDS ORDERED: HEPARIN NA (PORCINE) 5,000 UNITS/ML 1ML VIAL ONE (06:18)
[2022-02-03] MEDS ORDERED: NIFEdipine E.R 60 MG TABLET ONE (09:20)
[2022-02-03] MEDS: INSULIN SLIDING SCALE (NOVOLOG) 1 VIAL SQ SCH ×4 (09:42→22:27)
[2022-02-03] MEDS: predniSONE 5 MG TABLET (UD) PO SCH (09:42)
[2022-02-03] MEDS: NIFEdipine E.R 60 MG TABLET PO SCH (09:43)
[2022-02-03] MEDS: FINASTERIDE 5 MG TABLET (FP) PO SCH (11:21)
[2022-02-03] MEDS: MYCOPHENOLATE MOFETIL 500 MG TABLET PO SCH ×2 (11:21→22:27)
[2022-02-03 14:05] LABS: HEMATOCRIT 49.4 % (35.4-49); HEMOGLOBIN 15.6 GM/dL (11.7-16.9); MCH 26.9 pg (25.7-33.7); MCHC 31.6 g/dl (32.0-35.9); MEAN CELL VOLUME 85.1 fl (80-96); MEAN PLT VOLUME 9.6 fl (7.5-11.1); PLATELET COUNT 222 10^3/uL (134-434); RBC 5.81 M/mm3 (4.00-5.60); RDW 14.4 % (11.9-15.9); WHITE BLOOD COUNT 24.5 K/mm3 (4.0-10.0)
[2022-02-03 14:27] LABS: CALCIUM 8.9 mg/dL (8.5-10.1)
[2022-02-03 14:28] LABS: ALBUMIN 2.7 g/dl (3.4-5.0); BLOOD UREA NITROGEN 35.3 mg/dL (7-18)
[2022-02-03 14:31] LABS: CREATININE 1.8 mg/dL (0.55-1.3)
[2022-02-03 14:32] LABS: BILIRUBIN,TOTAL 1.6 mg/dL (0.2-1); TOT PROT 6.3 g/dl (6.4-8.2)
[2022-02-03 14:52] LABS: ANISOCYTOSIS 0; MACROCYTOSIS 0; PLATELET ESTIMATE NORMAL
[2022-02-03] MEDS ORDERED: CEFEPIME 2 GM in DEXTROSE 5%-WATER 100 ML IVPB SCH (15:00)
[2022-02-03 17:13] VITALS: BMI 25.8
[2022-02-03] MEDS ORDERED: DEXTROSE 5%-WATER - 50 ML IVPB ONE (17:35)
[2022-02-03] MEDS ORDERED: PIPERACILLIN/TAZOBACTAM 3.375 GM VIAL IVPB ONE (17:35)
[2022-02-03] MEDS: PIPERACILLIN/TAZOB 3.375 GM 3.375 GM in DEXTROSE 5%-WATER - 50 ML IVPB SCH (17:36)
[2022-02-03] MEDS: SODIUM CHLORIDE 1,000 ML IV SCH ×2 (17:40→19:07)
[2022-02-03] MEDS ORDERED: INSULIN (NOVOLOG) ASPART 100 UNITS/ML 10ML VIAL ONE (20:36)
[2022-02-04] MEDS ORDERED: DEXTROSE 5%-WATER - 50 ML IVPB ONE ×3 (02:00→17:21)
[2022-02-04] MEDS ORDERED: PIPERACILLIN/TAZOBACTAM 3.375 GM VIAL IVPB ONE ×3 (02:00→17:21)
[2022-02-04] MEDS: PIPERACILLIN/TAZOB 3.375 GM 3.375 GM in DEXTROSE 5%-WATER - 50 ML IVPB SCH ×3 (02:22→19:00)
[2022-02-04] MEDS: INSULIN SLIDING SCALE (NOVOLOG) 1 VIAL SQ SCH ×4 (06:42→22:15)
[2022-02-04] MEDS: HEPARIN NA (PORCINE) 5,000 UNITS/ML 1ML VIAL SQ SCH ×3 (06:42→22:04)
[2022-02-04] MEDS: predniSONE 5 MG TABLET (UD) PO SCH (10:09)
[2022-02-04] MEDS: FINASTERIDE 5 MG TABLET (FP) PO SCH (10:09)
[2022-02-04] MEDS: NIFEdipine E.R 60 MG TABLET PO SCH (10:09)
[2022-02-04] MEDS: TACROLIMUS ANHYDROUS 1 MG CAPSULE PO SCH ×2 (10:11→22:03)
[2022-02-04] MEDS: MYCOPHENOLATE MOFETIL 500 MG TABLET PO SCH ×2 (10:12→22:03)
[2022-02-04] MEDS: SODIUM CHLORIDE 1,000 ML IV SCH ×2 (10:13→19:01)
[2022-02-04 10:52] LABS: HEMOGLOBIN 13.9 GM/dL (11.7-16.9); MCH 26.4 pg (25.7-33.7); MCHC 31.7 g/dl (32.0-35.9); MEAN CELL VOLUME 83.4 fl (80-96); MEAN PLT VOLUME 9.5 fl (7.5-11.1); PLATELET COUNT 240 10^3/uL (134-434); RBC 5.27 M/mm3 (4.00-5.60); RDW 14.2 % (11.9-15.9); WHITE BLOOD COUNT 22.2 K/mm3 (4.0-10.0)
[2022-02-04 11:16] LABS: CALCIUM 8.8 mg/dL (8.5-10.1)
[2022-02-04 11:17] LABS: ALBUMIN 2.3 g/dl (3.4-5.0); MAGNESIUM 1.9 mg/dL (1.8-2.4)
[2022-02-04 11:20] LABS: CREATININE 1.8 mg/dL (0.55-1.3); PHOSPHOROUS 2.4 mg/dL (2.5-4.9)
[2022-02-04 11:21] LABS: BILIRUBIN,TOTAL 1.2 mg/dL (0.2-1)
[2022-02-04 11:22] LABS: TOT PROT 5.6 g/dl (6.4-8.2)
[2022-02-04] MEDS ORDERED: ACETAMINOPHEN 325 MG TABLET (FP) PO ONE (11:30)
[2022-02-04 11:54] LABS: ANISOCYTOSIS 0; MACROCYTOSIS 0
[2022-02-04] MEDS ORDERED: VANCOMYCIN 1 GRAM (PRE-DOCKED) 1,000 MG/250 ML BAG IVPB SCH (15:15)
[2022-02-04] MEDS: CLINDAMYCIN 900 MG PREMIX IVPB 900 MG/50 ML BAG IVPB SCH ×2 (16:25→22:32)
[2022-02-04] MEDS ORDERED: ACETAMINOPHEN 325 MG TABLET (FP) PO PRN (17:27)
[2022-02-04] MEDS ORDERED: INSULIN (NOVOLOG) ASPART 100 UNITS/ML 10ML VIAL ONE ×2 (22:06→22:12)
[2022-02-04] MEDS: LATANOPROST 0.005% OPHTH SOLN 2.5ML BOTTLE OU SCH (22:06)
[2022-02-05] MEDS ORDERED: PIPERACILLIN/TAZOBACTAM 3.375 GM VIAL IVPB ONE ×3 (02:34→18:44)
[2022-02-05] MEDS ORDERED: DEXTROSE 5%-WATER - 50 ML IVPB ONE ×3 (02:34→18:44)
[2022-02-05] MEDS: PIPERACILLIN/TAZOB 3.375 GM 3.375 GM in DEXTROSE 5%-WATER - 50 ML IVPB SCH ×3 (02:46→18:45)
[2022-02-05] MEDS: HEPARIN NA (PORCINE) 5,000 UNITS/ML 1ML VIAL SQ SCH ×3 (05:28→21:50)
[2022-02-05] MEDS: INSULIN SLIDING SCALE (NOVOLOG) 1 VIAL SQ SCH ×4 (06:03→21:51)
[2022-02-05] MEDS: CLINDAMYCIN 900 MG PREMIX IVPB 900 MG/50 ML BAG IVPB SCH ×3 (07:36→22:30)
[2022-02-05] MEDS: predniSONE 5 MG TABLET (UD) PO SCH (09:15)
[2022-02-05] MEDS: NIFEdipine E.R 60 MG TABLET PO SCH (09:15)
[2022-02-05] MEDS: FINASTERIDE 5 MG TABLET (FP) PO SCH (09:16)
[2022-02-05] MEDS: TACROLIMUS ANHYDROUS 1 MG CAPSULE PO SCH ×2 (09:19→21:50)
[2022-02-05] MEDS: MYCOPHENOLATE MOFETIL 500 MG TABLET PO SCH ×2 (09:21→21:50)
[2022-02-05 10:20] LABS: BASO % 0.8 % (0-2.0); EOS % 0.8 % (0-4.5); HEMATOCRIT 43.2 % (35.4-49); HEMOGLOBIN 13.9 GM/dL (11.7-16.9); MCH 26.8 pg (25.7-33.7); MEAN CELL VOLUME 83.6 fl (80-96); MEAN PLT VOLUME 9.7 fl (7.5-11.1); MONO % 7.1 % (3.8-10.2); NEUT % 87.3 % (42.8-82.8); PLATELET COUNT 265 10^3/uL (134-434); RBC 5.18 M/mm3 (4.00-5.60); RDW 14.2 % (11.9-15.9); WHITE BLOOD COUNT 17.8 K/mm3 (4.0-10.0)
[2022-02-05 10:58] LABS: ALBUMIN 2.3 g/dl (3.4-5.0)
[2022-02-05 10:59] LABS: CALCIUM 8.8 mg/dL (8.5-10.1)
[2022-02-05 11:00] LABS: BLOOD UREA NITROGEN 26.2 mg/dL (7-18); MAGNESIUM 1.9 mg/dL (1.8-2.4)
[2022-02-05 11:02] LABS: CREATININE 1.6 mg/dL (0.55-1.3); PHOSPHOROUS 2.4 mg/dL (2.5-4.9)
[2022-02-05 11:04] LABS: TOT PROT 5.7 g/dl (6.4-8.2)
[2022-02-05] MEDS: SODIUM CHLORIDE 1,000 ML IV SCH (18:47)
[2022-02-05] MEDS: LATANOPROST 0.005% OPHTH SOLN 2.5ML BOTTLE OU SCH (21:52)
[2022-02-06] MEDS ORDERED: PIPERACILLIN/TAZOBACTAM 3.375 GM VIAL IVPB ONE ×3 (01:23→17:30)
[2022-02-06] MEDS ORDERED: DEXTROSE 5%-WATER - 50 ML IVPB ONE ×3 (01:23→17:30)
[2022-02-06] MEDS: PIPERACILLIN/TAZOB 3.375 GM 3.375 GM in DEXTROSE 5%-WATER - 50 ML IVPB SCH ×3 (01:31→17:35)
[2022-02-06] MEDS: SODIUM CHLORIDE 1,000 ML IV SCH ×2 (01:31→17:37)
[2022-02-06] MEDS: HEPARIN NA (PORCINE) 5,000 UNITS/ML 1ML VIAL SQ SCH ×3 (06:08→21:26)
[2022-02-06] MEDS: INSULIN SLIDING SCALE (NOVOLOG) 1 VIAL SQ SCH ×4 (06:08→21:42)
[2022-02-06 09:28] LABS: ALBUMIN 2.5 g/dl (3.4-5.0); BLOOD UREA NITROGEN 17.8 mg/dL (7-18); CALCIUM 9.2 mg/dL (8.5-10.1)
[2022-02-06 09:29] LABS: MAGNESIUM 1.8 mg/dL (1.8-2.4)
[2022-02-06 09:31] LABS: PHOSPHOROUS 2.5 mg/dL (2.5-4.9)
[2022-02-06 09:32] LABS: CREATININE 1.4 mg/dL (0.55-1.3)
[2022-02-06 09:33] LABS: BILIRUBIN,TOTAL 1.1 mg/dL (0.2-1); TOT PROT 6.4 g/dl (6.4-8.2)
[2022-02-06] MEDS: CLINDAMYCIN 900 MG PREMIX IVPB 900 MG/50 ML BAG IVPB SCH ×3 (09:51→23:45)
[2022-02-06] MEDS: MYCOPHENOLATE MOFETIL 500 MG TABLET PO SCH ×2 (09:52→21:28)
[2022-02-06] MEDS: FINASTERIDE 5 MG TABLET (FP) PO SCH (09:52)
[2022-02-06] MEDS: predniSONE 5 MG TABLET (UD) PO SCH (09:52)
[2022-02-06] MEDS: NIFEdipine E.R 60 MG TABLET PO SCH (09:52)
[2022-02-06] MEDS: TACROLIMUS ANHYDROUS 1 MG CAPSULE PO SCH ×2 (09:52→21:27)
[2022-02-06 10:25] LABS: HEMOGLOBIN 15.9 GM/dL (11.7-16.9); MCH 27.4 pg (25.7-33.7); MCHC 33.1 g/dl (32.0-35.9); MEAN CELL VOLUME 82.7 fl (80-96); MEAN PLT VOLUME 8.8 fl (7.5-11.1); PLATELET COUNT 358 10^3/uL (134-434); RDW 14.3 % (11.9-15.9); WHITE BLOOD COUNT 17.2 K/mm3 (4.0-10.0)
[2022-02-06 11:48] LABS: ANISOCYTOSIS 0; MACROCYTOSIS 0
[2022-02-06] MEDS: INSULIN (NOVOLOG) ASPART 100 UNITS/ML 10ML VIAL SQ SCH (17:33)
[2022-02-06] MEDS: LATANOPROST 0.005% OPHTH SOLN 2.5ML BOTTLE OU SCH (21:28)
[2022-02-06] MEDS: INSULIN (LEVEMIR) 100 UNITS/ML UNITS SQ SCH (21:36)
[2022-02-07] MEDS ORDERED: PIPERACILLIN/TAZOBACTAM 3.375 GM VIAL IVPB ONE ×3 (02:27→16:55)
[2022-02-07] MEDS ORDERED: DEXTROSE 5%-WATER - 50 ML IVPB ONE ×2 (02:27→09:38)
[2022-02-07] MEDS: PIPERACILLIN/TAZOB 3.375 GM 3.375 GM in DEXTROSE 5%-WATER - 50 ML IVPB SCH ×2 (02:29→09:57)
[2022-02-07] MEDS: HEPARIN NA (PORCINE) 5,000 UNITS/ML 1ML VIAL SQ SCH ×3 (06:09→21:17)
[2022-02-07] MEDS: INSULIN SLIDING SCALE (NOVOLOG) 1 VIAL SQ SCH ×4 (06:10→21:19)
[2022-02-07] MEDS: INSULIN (NOVOLOG) ASPART 100 UNITS/ML 10ML VIAL SQ SCH ×3 (06:11→17:28)
[2022-02-07 09:19] LABS: HEMATOCRIT 46.8 % (35.4-49); HEMOGLOBIN 15.3 GM/dL (11.7-16.9); MCH 27.3 pg (25.7-33.7); MCHC 32.7 g/dl (32.0-35.9); MEAN CELL VOLUME 83.4 fl (80-96); MEAN PLT VOLUME 8.8 fl (7.5-11.1); PLATELET COUNT 330 10^3/uL (134-434); RBC 5.61 M/mm3 (4.00-5.60); RDW 14.4 % (11.9-15.9); WHITE BLOOD COUNT 16.4 K/mm3 (4.0-10.0)
[2022-02-07 09:37] LABS: BLOOD UREA NITROGEN 16.6 mg/dL (7-18); CALCIUM 9.4 mg/dL (8.5-10.1)
[2022-02-07 09:38] LABS: ALBUMIN 2.3 g/dl (3.4-5.0)
[2022-02-07 09:42] LABS: CREATININE 1.2 mg/dL (0.55-1.3)
[2022-02-07 09:43] LABS: TOT PROT 6.1 g/dl (6.4-8.2)
[2022-02-07 09:44] LABS: BILIRUBIN,TOTAL 1.2 mg/dL (0.2-1)
[2022-02-07] MEDS: CLINDAMYCIN 900 MG PREMIX IVPB 900 MG/50 ML BAG IVPB SCH ×3 (09:57→23:50)
[2022-02-07] MEDS: FINASTERIDE 5 MG TABLET (FP) PO SCH (10:00)
[2022-02-07] MEDS: NIFEdipine E.R 60 MG TABLET PO SCH (10:00)
[2022-02-07] MEDS: predniSONE 5 MG TABLET (UD) PO SCH (10:01)
[2022-02-07] MEDS: TACROLIMUS ANHYDROUS 1 MG CAPSULE PO SCH ×2 (10:01→21:17)
[2022-02-07] MEDS: MYCOPHENOLATE MOFETIL 500 MG TABLET PO SCH ×2 (10:02→21:17)
[2022-02-07] MEDS: COLLAGENASE CLOSTRIDIUM HIST. 30 GRAMS TUBE TP SCH ×2 (10:02→12:53)
[2022-02-07] MEDS: SODIUM CHLORIDE 1,000 ML IV SCH ×2 (10:03→15:29)
[2022-02-07 10:20] LABS: ANISOCYTOSIS 0; HELMET CELLS 0; HOWELL-JOLLY BODIES 0; MACROCYTOSIS 0; OVALOCYTE 0; ROULEAU 0; SICKELED CELLS 0; TARGET CELLS 0; TEAR DROP CELLS 0; TOXIC GRANULATION 0
[2022-02-07] MEDS: INSULIN (LEVEMIR) 100 UNITS/ML UNITS SQ SCH ×2 (11:21→21:20)
[2022-02-07] MEDS ORDERED: INSULIN (NOVOLOG) ASPART 100 UNITS/ML 10ML VIAL SQ SCH (16:47)
[2022-02-07] MEDS ORDERED: SODIUM CHLORIDE 50 ML IVPB ONE (16:55)
[2022-02-07] MEDS: PIPERACILLIN/TAZOB 3.375 GM 3.375 GM in SODIUM CHLORIDE 50 ML IVPB SCH (17:27)
[2022-02-07] MEDS ORDERED: INSULIN (NOVOLOG) ASPART 100 UNITS/ML 10ML VIAL ONE (21:09)
[2022-02-07] MEDS: LATANOPROST 0.005% OPHTH SOLN 2.5ML BOTTLE OU SCH (21:20)
[2022-02-08] MEDS ORDERED: SODIUM CHLORIDE 50 ML IVPB ONE ×3 (01:28→18:19)
[2022-02-08] MEDS ORDERED: PIPERACILLIN/TAZOBACTAM 3.375 GM VIAL IVPB ONE ×3 (01:28→18:18)
[2022-02-08] MEDS: PIPERACILLIN/TAZOB 3.375 GM 3.375 GM in SODIUM CHLORIDE 50 ML IVPB SCH ×3 (01:37→18:22)
[2022-02-08] MEDS: HEPARIN NA (PORCINE) 5,000 UNITS/ML 1ML VIAL SQ SCH ×3 (06:26→21:10)
[2022-02-08] MEDS: INSULIN SLIDING SCALE (NOVOLOG) 1 VIAL SQ SCH ×4 (06:28→21:10)
[2022-02-08] MEDS: INSULIN (NOVOLOG) ASPART 100 UNITS/ML 10ML VIAL SQ SCH ×3 (06:29→16:52)
[2022-02-08] MEDS: CLINDAMYCIN 900 MG PREMIX IVPB 900 MG/50 ML BAG IVPB SCH ×3 (08:20→22:21)
[2022-02-08 09:03] LABS: HEMATOCRIT 49.3 % (35.4-49); MCH 27.1 pg (25.7-33.7); MCHC 32.5 g/dl (32.0-35.9); MEAN CELL VOLUME 83.5 fl (80-96); MEAN PLT VOLUME 8.9 fl (7.5-11.1); PLATELET COUNT 328 10^3/uL (134-434); RBC 5.91 M/mm3 (4.00-5.60); RDW 14.5 % (11.9-15.9); WHITE BLOOD COUNT 15.1 K/mm3 (4.0-10.0)
[2022-02-08 09:14] LABS: CALCIUM 9.5 mg/dL (8.5-10.1)
[2022-02-08 09:15] LABS: ALBUMIN 2.4 g/dl (3.4-5.0); BLOOD UREA NITROGEN 15.7 mg/dL (7-18); MAGNESIUM 1.9 mg/dL (1.8-2.4)
[2022-02-08 09:18] LABS: CREATININE 1.3 mg/dL (0.55-1.3); PHOSPHOROUS 3.2 mg/dL (2.5-4.9)
[2022-02-08 09:19] LABS: BILIRUBIN,TOTAL 0.6 mg/dL (0.2-1); TOT PROT 6.3 g/dl (6.4-8.2)
[2022-02-08] MEDS: MYCOPHENOLATE MOFETIL 500 MG TABLET PO SCH ×2 (09:55→21:08)
[2022-02-08] MEDS: NIFEdipine E.R 60 MG TABLET PO SCH (09:56)
[2022-02-08] MEDS: predniSONE 5 MG TABLET (UD) PO SCH (09:56)
[2022-02-08] MEDS: TACROLIMUS ANHYDROUS 1 MG CAPSULE PO SCH ×2 (09:57→21:14)
[2022-02-08] MEDS: FINASTERIDE 5 MG TABLET (FP) PO SCH (09:58)
[2022-02-08] MEDS: INSULIN (LEVEMIR) 100 UNITS/ML UNITS SQ SCH ×2 (09:59→21:12)
[2022-02-08] MEDS: COLLAGENASE CLOSTRIDIUM HIST. 30 GRAMS TUBE TP SCH (11:23)
[2022-02-08] MEDS: LATANOPROST 0.005% OPHTH SOLN 2.5ML BOTTLE OU SCH (21:14)
[2022-02-09] MEDS ORDERED: PIPERACILLIN/TAZOBACTAM 3.375 GM VIAL IVPB ONE ×3 (01:56→17:59)
[2022-02-09] MEDS ORDERED: SODIUM CHLORIDE 50 ML IVPB ONE ×3 (01:56→18:00)
[2022-02-09] MEDS: PIPERACILLIN/TAZOB 3.375 GM 3.375 GM in SODIUM CHLORIDE 50 ML IVPB SCH ×3 (02:02→18:10)
[2022-02-09] MEDS: HEPARIN NA (PORCINE) 5,000 UNITS/ML 1ML VIAL SQ SCH ×3 (05:42→22:13)
[2022-02-09] MEDS: INSULIN SLIDING SCALE (NOVOLOG) 1 VIAL SQ SCH ×5 (06:02→22:31)
[2022-02-09] MEDS: INSULIN (NOVOLOG) ASPART 100 UNITS/ML 10ML VIAL SQ SCH ×3 (06:03→17:49)
[2022-02-09] MEDS: CLINDAMYCIN 900 MG PREMIX IVPB 900 MG/50 ML BAG IVPB SCH (06:16)
[2022-02-09] MEDS: predniSONE 5 MG TABLET (UD) PO SCH (09:41)
[2022-02-09] MEDS: NIFEdipine E.R 60 MG TABLET PO SCH (09:41)
[2022-02-09] MEDS: MYCOPHENOLATE MOFETIL 500 MG TABLET PO SCH ×2 (09:42→22:13)
[2022-02-09] MEDS: FINASTERIDE 5 MG TABLET (FP) PO SCH (09:42)
[2022-02-09] MEDS: COLLAGENASE CLOSTRIDIUM HIST. 30 GRAMS TUBE TP SCH (09:43)
[2022-02-09 10:57] LABS: HEMATOCRIT 49.6 % (35.4-49); HEMOGLOBIN 16.1 GM/dL (11.7-16.9); MCH 27.1 pg (25.7-33.7); MCHC 32.3 g/dl (32.0-35.9); MEAN CELL VOLUME 83.7 fl (80-96); MEAN PLT VOLUME 8.8 fl (7.5-11.1); PLATELET COUNT 426 10^3/uL (134-434); RBC 5.93 M/mm3 (4.00-5.60); RDW 14.5 % (11.9-15.9); WHITE BLOOD COUNT 14.2 K/mm3 (4.0-10.0)
[2022-02-09 11:25] LABS: CALCIUM 9.9 mg/dL (8.5-10.1)
[2022-02-09 11:26] LABS: BLOOD UREA NITROGEN 23.2 mg/dL (7-18)
[2022-02-09 11:28] LABS: CREATININE 1.7 mg/dL (0.55-1.3)
[2022-02-09 11:29] LABS: PHOSPHOROUS 3.3 mg/dL (2.5-4.9)
[2022-02-09 11:30] LABS: BILIRUBIN,TOTAL 0.8 mg/dL (0.2-1); TOT PROT 7.3 g/dl (6.4-8.2)
[2022-02-09 11:41] LABS: ALBUMIN 2.9 g/dl (3.4-5.0)
[2022-02-09] MEDS: INSULIN (LEVEMIR) 100 UNITS/ML UNITS SQ SCH ×2 (12:11→22:11)
[2022-02-09 12:47] LABS: ANISOCYTOSIS 0; MACROCYTOSIS 0
[2022-02-09] MEDS: TACROLIMUS ANHYDROUS 1 MG CAPSULE PO SCH ×2 (13:03→22:11)
[2022-02-09] MEDS: LATANOPROST 0.005% OPHTH SOLN 2.5ML BOTTLE OU SCH (22:32)
[2022-02-10] MEDS: PIPERACILLIN/TAZOB 3.375 GM 3.375 GM in SODIUM CHLORIDE 50 ML IVPB SCH ×2 (01:57→09:13)
[2022-02-10] MEDS ORDERED: PIPERACILLIN/TAZOBACTAM 3.375 GM VIAL IVPB ONE ×2 (02:04→08:57)
[2022-02-10] MEDS ORDERED: SODIUM CHLORIDE 50 ML IVPB ONE ×2 (02:04→08:58)
[2022-02-10] MEDS: HEPARIN NA (PORCINE) 5,000 UNITS/ML 1ML VIAL SQ SCH ×2 (06:04→15:40)
[2022-02-10] MEDS: INSULIN SLIDING SCALE (NOVOLOG) 1 VIAL SQ SCH ×2 (06:05→11:31)
[2022-02-10] MEDS: INSULIN (NOVOLOG) ASPART 100 UNITS/ML 10ML VIAL SQ SCH ×2 (06:05→11:31)
[2022-02-10 06:49] VITALS: BP 143/82; PULSE 90; TEMP 98.8
[2022-02-10 09:00] LABS: HEMATOCRIT 45.7 % (35.4-49); HEMOGLOBIN 14.9 GM/dL (11.7-16.9); MCH 27.1 pg (25.7-33.7); MCHC 32.7 g/dl (32.0-35.9); MEAN CELL VOLUME 83.1 fl (80-96); MEAN PLT VOLUME 8.7 fl (7.5-11.1); PLATELET COUNT 389 10^3/uL (134-434); RDW 14.2 % (11.9-15.9); WHITE BLOOD COUNT 11.3 K/mm3 (4.0-10.0)
[2022-02-10] MEDS: NIFEdipine E.R 60 MG TABLET PO SCH (09:13)
[2022-02-10] MEDS: predniSONE 5 MG TABLET (UD) PO SCH (09:13)
[2022-02-10] MEDS: TACROLIMUS ANHYDROUS 1 MG CAPSULE PO SCH (09:14)
[2022-02-10] MEDS: FINASTERIDE 5 MG TABLET (FP) PO SCH (09:14)
[2022-02-10] MEDS: MYCOPHENOLATE MOFETIL 500 MG TABLET PO SCH (09:15)
[2022-02-10] MEDS: COLLAGENASE CLOSTRIDIUM HIST. 30 GRAMS TUBE TP SCH (09:15)
[2022-02-10 09:28] LABS: ALBUMIN 2.5 g/dl (3.4-5.0); BLOOD UREA NITROGEN 27.9 mg/dL (7-18); CALCIUM 9.7 mg/dL (8.5-10.1)
[2022-02-10 09:31] LABS: PHOSPHOROUS 3.3 mg/dL (2.5-4.9)
[2022-02-10 09:32] LABS: CREATININE 1.5 mg/dL (0.55-1.3)
[2022-02-10 09:33] LABS: BILIRUBIN,TOTAL 0.6 mg/dL (0.2-1); TOT PROT 6.5 g/dl (6.4-8.2)
[2022-02-10 10:42] LABS: ANISOCYTOSIS 0; HELMET CELLS 0; HOWELL-JOLLY BODIES 0; MACROCYTOSIS 0; OVALOCYTE 0; ROULEAU 0; SICKELED CELLS 0; TARGET CELLS 0; TEAR DROP CELLS 0; TOXIC GRANULATION 0
[2022-02-10] MEDS: INSULIN (LEVEMIR) 100 UNITS/ML UNITS SQ SCH (11:31)
== END 2022-02-10 17:55 | disposition home health service (06) | DRG 872 ==
LOC: JER 14:30 → SUATTDRO 14:30 → JERBED 02-03 08:42 → J8W 02-03 12:25
PROVIDERS: ADMIT Internal Medicine; ATTEND Internal Medicine
PROC: 0J9R0ZZ Drainage of Left Foot Subcutaneous Tissue and Fascia, Open Approach (ICD-10-PCS; principal; 2022-02-06)
DX: A41.9 Sepsis, unspecified organism (principal); Z94.0 Kidney transplant status; N17.9 Acute kidney failure, unspecified; L03.116 Cellulitis of left lower limb; E11.22 Type 2 diabetes mellitus with diabetic chronic kidney disease; E11.621 Type 2 diabetes mellitus with foot ulcer; L97.529 Non-pressure chronic ulcer of other part of left foot with unspecified severity; E78.5 Hyperlipidemia, unspecified; N40.0 Benign prostatic hyperplasia without lower urinary tract symptoms; D72.829 Elevated white blood cell count, unspecified; E11.319 Type 2 diabetes mellitus with unspecified diabetic retinopathy without macular edema; E11.65 Type 2 diabetes mellitus with hyperglycemia; N18.9 Chronic kidney disease, unspecified; I12.9 Hypertensive chronic kidney disease with stage 1 through stage 4 chronic kidney disease, or unspecified chronic kidney disease
CPT/HCPCS: 0241U-QW; 36415; 73610-TC-LT-FY; 73630-TC-LT; 73718-TC-LT; 76776-TC; 80053; 80197; 81003; 82436; 82570; 82962; 83036; 83735; 84100; 84133; 84300; 85025; 85651; 86140; 87040; 87070; 87077; 87081; 87186; 87205; 93005; 93010; 97116-GP; 97161-GP; 99285-25; G0480; J1644; J7517

== ENCOUNTER 2022-06-04 17:03 | Emergency (ER) | payer OTHER ==
[2022-06-04 17:20] VITALS: BP 146/78; PULSE 109; RESP 18; TEMP 98.7; BMI 24.1
[2022-06-05] MEDS ORDERED: ACETAMINOPHEN 500 MG TABLET (FP) PO ONE (01:19)
[2022-06-05] MEDS ORDERED: LIDOCAINE 5% TOPICAL PATCH TP ONE (01:20)
[2022-06-05] MEDS ORDERED: ACETAMINOPHEN 325 MG TABLET (FP) ONE (01:31)
[2022-06-05] MEDS ORDERED: LIDOCAINE 5% TOPICAL PATCH ONE (01:31)
[2022-06-05] MEDS ORDERED: LIDOCAINE PATCH REMOVAL MC SCH (22:00)
== END 2022-06-05 02:17 | disposition home or self-care (01) ==
LOC: JER 17:03
DX: M54.50 Low back pain, unspecified (principal)
CPT/HCPCS: 73030-TC-RT-FY; 99283-25